=== PATIENT | male | born 1975 | race Caucasian/White ===

== ENCOUNTER 2021-10-11 13:33 | Inpatient (IN) | payer MEDICARE, SELFPAY ==
[2021-10-11 13:41] VITALS: BP 136/81; PULSE 100; RESP 16; TEMP 36.9; O2SAT 97; BMI 36.5
--- NOTE | 2021-10-11 13:52 | PC.NURSE ---
PT STATES HE HAS DRANK A PINT WHISKEY THIS DAY
--- NOTE | 2021-10-11 14:55 | ED.C_ITS ---
HPI - Psych General: Chief Complaint: Psychiatric Symptoms Stated Complaint: Mental Health Eval Time Seen by Provider: 10/11/21 14:46 Source: patient Mode of arrival: ambulatory Limitations: no limitations History of Present Illness: HPI Narrative: Patient is a 46-year-old male who presents to ED today with concerns of feeling suicidal. 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 He states his paxchyx-hd-tin is a narcissist and they do not get along well. Patient states he struggles with alcohol abuse. He states on Friday he was drinking and tried to commit suicide by baclofen overdose. He states he consumed several tablets but shortly after vomited them up. Patient states he still feels suicidal and presented to the ED stating I figured I had rather come here than somebody find me out there . Patient does have a history of depression and is supposed to be treating with medications although he has not been taking these. MD complaint: suicidal ideation Onset (ago): day(s) Duration: constant History of same: Yes Exacerbating factors: alcohol Context: recent alcohol abuse and not taking psychiatric medications Associated psychiatric symptoms: depression and suicidal ideation Associated symptoms: Reports depression and suicidal ideation; Deny auditory hallucinations, visual hallucinations or homicidal ideation Treatments prior to arrival: none If self harm: has acted on plan Review of Systems Const: Denies: fever(s) or chills Card: Denies: chest pain, palpitations, lightheadedness or syncope Resp: Denies: dyspnea GI: Denies: abdominal pain, nausea, vomiting or diarrhea Skin/Breast: Denies: rash Neuro: Denies: headache(s) Psych: Reports: depression, hopelessness, loss of interest and suicidal ideation; Denies: visual hallucinations, auditory hallucinations or homicidal ideation Physical Exam Const: COMMON NORMALS: no acute distress, patient oriented x3, no limitations and alert GENERAL APPEARANCE: cooperative ORIENTATION/CONSCIOUSNESS: Yes awake, Yes oriented to person, Yes oriented to place and Yes oriented to time OTHER: slighly intoxicated HENMT: COMMON NORMALS: normocephalic and atraumatic HEAD & SCALP: normocephalic and atraumatic Neuro: JOSEPHINE COMA SCALE: document GCS findings [place] coma scale eye opening: Spontaneous [place] coma scale verbal response: Orientated Josephine coma scale motor response: Obey commands [place] coma scale total score: 15 COMMON NORMALS: patient oriented x3, CN's II-XII intact bilaterally, moves all extremities, no focal motor deficits, no sensory deficits noted and gait normal SENSORIUM/ORIENTATION: Yes alert, Yes oriented to person, Yes oriented to place and Yes oriented to time Psych: COMMON NORMALS: mental status grossly normal, Normal thought process present, cooperative, normal affect, speech normal, activity/motor behavior normal, denies hallucinations and denies homicidal ideation APPEARANCE: Yes grossly normal ATTITUDE: Yes calm ACTIVITY/MOTOR BEHAVIOR: Yes appropriate eye contact SPEECH: Yes normal speech MOOD & AFFECT: Yes euthymic mood THOUGHT PROCESS: Normal thought process present THOUGHT CONTENT: Yes Suicidality present ATTENTION/CONCENTRATION: Yes attention grossly intact and Yes concentration grossly intact MEMORY/COGNITION: Yes memory grossly intact and Yes cognition grossly intact INSIGHT: Good insight present (Psych) JUDGEMENT: Good judgement present (Psych) Course ED course: Patient will be voluntary with affidavit. Consultations: Consultation #1: Dr. Duke-accepts to NPU pend lab clearance Vital Signs: Vital signs: Vital Signs Temperature 98.4 F 10/11/21 13:41 Pulse Rate 100 10/11/21 13:41 Respiratory Rate 16 10/11/21 13:41 Blood Pressure 136/81 10/11/21 13:41 Pulse Oximetry 97 10/11/21 13:41 Discharge Plan Discharge Patient Disposition: Admitted As Inpatient Clinical Impression: Suicidal ideation, Alcohol abuse Condition: Stable Coding Level of Care Code ED Director Of Hotel Operations for Wendy [facility] Exam Expanded Problem Focused
[2021-10-11 16:27] LABS: Basophils # 0.1 10^3/uL (0.0-0.1); Basophils % 0.5 %; Eosinophils # 0.4 10^3/uL (0.0-0.8); Eosinophils % 3.4 %; Hematocrit 46.4 % (42.0-52.0); Hemoglobin 16.1 g/dL (11.7-16.6); Lymphocytes # 2.4 10^3/uL (0.8-4.8); Lymphocytes % 21.5 %; Mean Corpuscular HGB Conc 34.7 g/dL (30.0-36.0); Mean Corpuscular Hemoglobin 32.1 pg (28.0-34.0); Mean Corpuscular Volume 92.4 fl (80-94); Mean Platelet Volume 12.9 fL (7.4-10.4); Monocytes # 0.7 10^3/uL (0.2-0.9); Monocytes % 6.3 %; Neutrophils # 7.48 10^3/uL (1.8-7.7); Nucleated Red Blood Cells % 0 %; Platelet Count 197 10^3/cmm (130-400); Red Blood Count 5.02 10^6/uL (4.1-5.3); Red Cell Distribution Width 12.7 % (12.1-15.1)
[2021-10-11 16:53] VITALS: BP 118/77; PULSE 81; RESP 17; TEMP 37.1; O2SAT 96
[2021-10-11 17:23] LABS: Alanine Aminotransferase 53 U/L (0-41); Albumin Level 3.9 g/dL (3.5-5.2); Alcohol Level 75 mg/dL (0-10); Alkaline Phosphatase 77 IU/L (40-130); Anion Gap 21.5 (5-19); Aspartate Amino Transferase 35 U/L (0-40); Blood Urea Nitrogen 10 mg/dL (6-20); Calcium 8.2 mg/dL (8.5-10.5); Carbon Dioxide 20 mmol/L (22-29); Chloride 101 mmol/L (98-107); Creatinine Clr Calc Pharmacy 140.9747; Globulin 3.4 g/dL (1.3-4.6); Glucose 140 mg/dL (65-115); Osmolality Calculated 289 mOsm/kg (285-295); Potassium 3.5 mmol/L (3.5-5.1); Sodium 139 mmol/L (136-145); Total Bilirubin 0.4 mg/dL (0.15-1.2); Total Protein 7.3 g/dL (6.6-8.7)
[2021-10-11 17:28] LABS: Acetaminophen < 5.0 ug/mL (10-30); Salicylate < 0.3 mg/dL (3-10)
[2021-10-11] MEDS: LORazepam 2 mg/mL INJ 1 mL 1 MG IM (17:29)
[2021-10-11 19:01] LABS: Amphetamines Screen Urine Negative (Negative); Barbiturates Screen Urine Negative (Negative); Benzodiazepines Screen Urine Negative (Negative); Cocaine Screen Urine Negative (Negative); Opiate Screen Urine Negative (Negative); PCP Screen Urine Negative (Negative); THC Screen Urine Negative (Negative)
[2021-10-11 20:34] VITALS: BP 132/80; PULSE 85; RESP 17; TEMP 36.9; O2SAT 96
[2021-10-12 06:00] VITALS: BP 132/80; PULSE 85; RESP 17; TEMP 36.9; O2SAT 96
[2021-10-12 06:45] VITALS: BP 142/87; PULSE 70; RESP 18; TEMP 37
[2021-10-12] MEDS: LORazepam 2 mg Tablet PO ×3 (08:22→20:24)
[2021-10-12] MEDS: thiamine 100 mg Tablet PO (08:22)
[2021-10-12] MEDS: multivitamin therapeutic Tablet 1 TAB PO (08:22)
[2021-10-12] MEDS: folic acid 1 mg Tablet PO (08:22)
--- NOTE | 2021-10-12 08:23 | PC.NURSE ---
Addendum entered by Fabby Unger LPN 10/12/21 09:32: pt still has c/o of agitation and anxiety one hour after administration of ativan, pt given vistaril for continued symptoms despite tx. will continue to monitor. Original Note: pt c/o agitation, 0800 CIWA assessment performed, pt scored 11 on scale, PO ativan administered, will continue to monitor.
[2021-10-12] MEDS: hyDROXYzine 25 mg Capsule 50 MG PO (09:30)
--- NOTE | 2021-10-12 13:39 | W.PM.NPUH&PS ---
Providers/Chief Complaint Admitting Physician: Anthony Duke MD Chief Complaint: Mental Health Eval HPI NPU History of Present Illness Audi Suarez is a 46 year old male admitted through our emergency room with the following report: HPI - Psych General: Chief Complaint: Psychiatric Symptoms Stated Complaint: Mental Health Eval Time Seen by Provider: 10/11/21 14:46 Source: patient Mode of arrival: ambulatory Limitations: no limitations History of Present Illness: HPI Narrative: Patient is a 46-year-old male who presents to ED today with concerns of feeling suicidal. 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 He states his rubbala-qq-lht is a narcissist and they do not get along well. Patient states he struggles with alcohol abuse. He states on Friday he was drinking and tried to commit suicide by baclofen overdose. He states he consumed several tablets but shortly after vomited them up. Patient states he still feels suicidal and presented to the ED stating I figured I had rather come here than somebody find me out there . Patient does have a history of depression and is supposed to be treating with medications although he has not been taking these. complaint: suicidal ideation Onset (ago): day(s) Duration: constant History of same: Yes Exacerbating factors: alcohol Context: recent alcohol abuse and not taking psychiatric medications Associated psychiatric symptoms: depression and suicidal ideation Associated symptoms: Reports depression and suicidal ideation; Deny auditory hallucinations, visual hallucinations or homicidal ideation Treatments prior to arrival: none If self harm: has acted on plan To the neuropsychiatry unit for definitive treatment of these issues. He said that he has been more depressed for the last couple of months. He has had suicidal ideation over the last 2 weeks. He has been drinking in binges. He denies alcohol use yesterday when he took the overdose of baclofen. He said that he did not want to and he still wishes that he was . He says that living with his chtnqcy-eo-ajy and sister does not help but he is always somewhat depressed. He has had 5 prior admissions for suicidal ideation. He said this is the first time he has actually taken an overdose. He said the last admission was 2 years ago and he tried Cymbalta. He said that Effexor is the one that has worked the best for him. He has tried several different ones. He took Effexor 150 mg for about 1 year and it worked well but then stopped working and he stopped taking it. They did not try to increase it. He would like to try that again. He does not feel that he needs anything for sleep. He has tried trazodone but it makes him too hazy the next day and he does not like it. Meds NPU Home Medications Medication Instructions Recorded Confirmed Last Taken Type baclofen 10 mg PO TID 10/11/21 10/11/21 Unknown History Allergies Allergy/AdvReac Type Severity Reaction Status Date / Time No Known Allergies Allergy Verified 10/11/21 13:41 Mental Status Exam MSE Comments: This is a 46-year-old obese male who appears approximately his stated age in no acute distress. He is in hospital scrubs and has a full elizabeth. He was found in bed at 1:30 PM. He did not sit up to talk with me. I psychomotor activity mildly decreased. Speech is at a regular rate and rhythm, normal volume, good articulation, not pressured. Alert, oriented X3 Attention and concentration fairly good. Memory is intact Mood is depressed. Affect is moderately dysphoric. Thought process is logical and goal-directed. Thought content: Denies auditory and visual hallucinations. No delusions or paranoia are noted. Continues to have suicidal ideation but no plan and no homicidal ideation. Fund of knowledge is average. Insight and judgment appear to be impaired. Impulse control is impaired. Vitals/I&O/Wt Last Vital Signs Temp 98.6 F 10/12/21 06:45 Pulse 70 10/12/21 06:45 Resp 18 10/12/21 06:45 BP 142/87 10/12/21 06:45 Pulse Ox 96 10/12/21 06:00 Weight last 48 hrs Weight 108.862 kg Data NPU : 10/11/21 16:09 10/11/21 16:09 A&P Assessment and plan (1) Depression: Status: Acute Qualifiers: Depression Type: major depressive disorder Major depression recurrence: recurrent Active/Remission status: currently active Major depression episode severity: severe Psychotic features: without psychotic features Qualified Code(s): F33.2 - Major depressive disorder, recurrent severe without psychotic features (2) Suicidal ideation: Status: Acute (3) Alcohol abuse: Status: Acute Additional A&P Information This is a 46-year-old male who reports chronic depression with episodic suicidal ideations and 5 prior hospitalizations who attempted suicide with overdose of baclofen and alcohol Plan: 1. We will start Effexor 75 mg daily and increase to 150 mg as tolerated 2. Continue every 15 minute checks for safety. 3. Encourage individual, group and milieu therapies. 4. Encourage sober living treatment after discharge at the highest level of care to which he is willing to commit. 5. We will monitor for safety for himself in the community prior to discharge. Involuntary Hold Information 96 Hour Hold: 96 Hour Involuntary Admission: No Attestations NPU Medical Necessity Statement*: Inpatient hospitalization is medically necessary and the clinically appropriate intervention at this time. We will initiate medications and make changes as indicated. He will be in the hospital for over 2 midnights. Likely length of stay 4-6 days Coding Level of Care Code Acute Hotel Manager for Wendy [facility] Diagnoses Depression F33.2 Depression Type: major depressive disorder Major depression recurrence: recurrent Active/Remission status: currently active Major depression episode severity: severe Psychotic features: without psychotic features Suicidal ideation R45.851 Alcohol abuse F10.10
[2021-10-12 14:00] VITALS: BP 140/76; PULSE 72; RESP 16; TEMP 37; O2SAT 97
[2021-10-12] MEDS: OLANZapine 5 mg ODT PO (17:27)
[2021-10-12 20:31] VITALS: BP 123/83; PULSE 71; RESP 16; O2SAT 94
--- NOTE | 2021-10-13 02:59 | PC.NURSE ---
PRN administration Patient scored 12 on CIWA, PRN Ativan given per protocol with noted effectiveness.
[2021-10-13 06:00] VITALS: BP 119/71; PULSE 64; RESP 20; TEMP 36.6; O2SAT 94
--- NOTE | 2021-10-13 08:20 | W.PM.NPUPNS ---
Subjective NPU Subjective: Interval history: He continues to have depression and suicidal ideation. He will have his first dose of Effexor 75 mg today. He took some Zyprexa Zydis yesterday afternoon around dinnertime but did not eat anything else to help him sleep. He says that he slept well. He was up in the day room at 8 AM. He was encouraged to continue to be active and in bed. Mental Status Exam MSE Comments: This is a 46-year-old obese male who appears approximately his stated age in no acute distress. He is in hospital scrubs and has a full elizabeth. He was found in the day room at 8 AM. psychomotor activity mildly decreased. Speech is at a regular rate and rhythm, normal volume, good articulation, not pressured. Alert, oriented X3 Attention and concentration fairly good. Memory is intact Mood is depressed. Affect is moderately dysphoric. Thought process is logical and goal-directed. Thought content: Denies auditory and visual hallucinations. No delusions or paranoia are noted. Continues to have suicidal ideation but no plan and no homicidal ideation. Fund of knowledge is average. Insight and judgment appear to be impaired. Impulse control is impaired. Cognition: Patient Appearance: Disheveled/Poor Hygiene Level of Consciousness: Awake, Alert, Appropriate and Follows Commands Patient Cognition Impaired: No Ability to Follow Directions: Good Patient Orientation (long list): Person, Place, Time, Name, Age and Birthday Comprehension Ability: No Impairment Hallucination Type: None Delusion Description: Not Present Thought Process: Appropriate Affect: Affect Description: Appropriate Behavior: Patient Behavior: Appropriate Speech Pattern: Appropriate Vitals/I&O/Wt Last Vital Signs Temp 98 F 10/13/21 06:00 Pulse 64 10/13/21 06:00 Resp 20 H 10/13/21 06:00 BP 119/71 10/13/21 06:00 Pulse Ox 94 10/13/21 06:00 Weight last 48 hrs Weight 108.862 kg Data NPU : 10/11/21 16:09 10/11/21 16:09 A&P Assessment and plan (1) Depression: Status: Acute Qualifiers: Depression Type: major depressive disorder Major depression recurrence: recurrent Active/Remission status: currently active Major depression episode severity: severe Psychotic features: without psychotic features Qualified Code(s): F33.2 - Major depressive disorder, recurrent severe without psychotic features (2) Suicidal ideation: Status: Acute (3) Alcohol abuse: Status: Acute Additional A&P Information This is a 46-year-old male who reports chronic depression with episodic suicidal ideations and 5 prior hospitalizations who attempted suicide with overdose of baclofen and alcohol Plan: 1. We will start Effexor 75 mg daily and increase to 150 mg as tolerated 2. Continue every 15 minute checks for safety. 3. Encourage individual, group and milieu therapies. 4. Encourage sober living treatment after discharge at the highest level of care to which he is willing to commit. 5. We will monitor for safety for himself in the community prior to discharge. Involuntary Hold Information 96 Hour Hold: 96 Hour Involuntary Admission: No Attestations NPU Medical Necessity Statement*: Inpatient hospitalization is medically necessary and the clinically appropriate intervention at this time. We will initiate medications and make changes as indicated. 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
[2021-10-13] MEDS: venlafaxine ER (24HR) 75 mg Capsule PO (08:28)
[2021-10-13] MEDS: thiamine 100 mg Tablet PO (08:28)
[2021-10-13] MEDS: multivitamin therapeutic Tablet 1 TAB PO (08:28)
[2021-10-13] MEDS: folic acid 1 mg Tablet PO (08:28)
[2021-10-13] MEDS: LORazepam 2 mg Tablet PO ×2 (09:01→20:16)
[2021-10-13] MEDS: nicotine 21 mg Patch 1 PATCH TRANSDERMA (09:30)
--- NOTE | 2021-10-13 12:14 | PC.PT ---
discussed order with nursing and they stated entered in error. discussed chronic amputee. if pt having difficulty, nursing to re-order therapy. D/C PT currently
[2021-10-13 14:00] VITALS: BP 131/84; PULSE 81; RESP 17; O2SAT 94
[2021-10-13 20:15] VITALS: BP 139/87; PULSE 80; RESP 17; O2SAT 93
[2021-10-13] MEDS: ondansetron 4 MG Tablet PO (20:16)
--- NOTE | 2021-10-14 04:41 | PC.NURSE ---
Patient at the nurses station earlier with extreme anxiety and nausea. Patient received Lorazepam (CIWA 13) and zofran. Both were effective.
[2021-10-14 05:51] VITALS: BP 139/87; PULSE 80; RESP 17; TEMP 36.6; O2SAT 93; BMI 36.5
[2021-10-14 06:55] VITALS: BP 138/78; PULSE 84; RESP 18; TEMP 36.5; O2SAT 95
[2021-10-14] MEDS: venlafaxine ER (24HR) 75 mg Capsule PO (08:25)
[2021-10-14] MEDS: folic acid 1 mg Tablet PO (08:25)
[2021-10-14] MEDS: thiamine 100 mg Tablet PO (08:25)
[2021-10-14] MEDS: multivitamin therapeutic Tablet 1 TAB PO (08:25)
[2021-10-14] MEDS: nicotine 2 mg Gum BUCCAL ×5 (08:26→19:11)
[2021-10-14] MEDS: hyDROXYzine 25 mg Capsule 50 MG PO ×2 (08:47→16:12)
--- NOTE | 2021-10-14 12:45 | P.NPUPN_ITS ---
Subjective NPU Subjective: Interval history: He says that his depression is no better with the Effexor 75 mg. Today is only the second day. He would like to go ahead and increase it to 150 mg. He said that he thinks that anxiety is a big problem for him. The Ativan that he was taking for the alcohol withdrawal was really helping. He thinks that the anxiety is one of the reasons that he drinks. He would like to be able to take something like Ativan to help his anxiety. He was educated about the proper treatment of anxiety and told it would probably need to increase the Effexor up to 300 mg. He thinks that he has been up to 225 mg before but not that high. He would like to increase up to 300 mg as soon as possible. He is willing to take the risk of having some side effects. He generally does not have side effects from medications and thinks that he can handle the higher dose sooner than most people could. He said that he has been on Abilify and Risperdal and maybe other antipsychotics and has not liked them. Mental Status Exam MSE Comments: This is a 46-year-old obese male who appears approximately his stated age in no acute distress. He is in hospital scrubs and has a full elizabeth. He was found in bed but awake at 12:30 PM. psychomotor activity mildly decreased. Speech is at a regular rate and rhythm, normal volume, good articulation, not pressured. Alert, oriented X3 Attention and concentration fairly good. Memory is intact Mood is depressed. Affect is moderately dysphoric. Thought process is logical and goal-directed. Thought content: Denies auditory and visual hallucinations. No delusions or paranoia are noted. Continues to have suicidal ideation but no plan and no homicidal ideation. Fund of knowledge is average. Insight and judgment appear to be impaired. Impulse control is impaired. Cognition: Patient Appearance: Disheveled/Poor Hygiene Level of Consciousness: Awake, Alert, Appropriate and Follows Commands Patient Cognition Impaired: No Ability to Follow Directions: Good Patient Orientation (long list): Person, Place, Time, Name, Age and Birthday Comprehension Ability: No Impairment Hallucination Type: None Delusion Description: Not Present Thought Process: Circumstantial Affect: Affect Description: Appropriate, Anxious, Depressed and Flat Behavior: Patient Behavior: Appropriate, Cooperative and Withdrawn Speech Pattern: Appropriate and Clear Vitals/I&O/Wt Last Vital Signs Temp 97.7 F 10/14/21 06:55 Pulse 84 10/14/21 06:55 Resp 18 10/14/21 06:55 BP 138/78 10/14/21 06:55 Pulse Ox 95 10/14/21 06:55 Weight last 48 hrs Weight 108.862 kg Data NPU : 10/11/21 16:09 10/11/21 16:09 A&P Assessment and plan (1) Depression: Status: Acute Qualifiers: Depression Type: major depressive disorder Major depression recurrence: recurrent Active/Remission status: currently active Major depression episode severity: severe Psychotic features: without psychotic features Qualified Code(s): F33.2 - Major depressive disorder, recurrent severe without psychotic features (2) Suicidal ideation: Status: Acute (3) Alcohol abuse: Status: Acute Additional A&P Information This is a 46-year-old male who reports chronic depression with episodic suicidal ideations and 5 prior hospitalizations who attempted suicide with overdose of baclofen and alcohol Plan: 1. Effexor increase to 150 mg.Consider increasing to 300 mg soon. 2. Continue every 15 minute checks for safety. 3. Encourage individual, group and milieu therapies. 4. Encourage sober living treatment after discharge at the highest level of ca re to which he is willing to commit. 5. We will monitor for safety for himself in the community prior to discharge. Involuntary Hold Information 96 Hour Hold: 96 Hour Involuntary Admission: No Attestations NPU Medical Necessity Statement*: Inpatient hospitalization is medically necessary and the clinically appropriate intervention at this time. We will initiate medications and make changes as indicated. 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
[2021-10-14 14:00] VITALS: BP 146/84; PULSE 109; RESP 18; TEMP 37.1; O2SAT 94
[2021-10-14 20:39] VITALS: BP 112/74; PULSE 88; RESP 17; TEMP 36.6; O2SAT 96
[2021-10-15 06:00] VITALS: BP 117/78; PULSE 90; RESP 18; TEMP 36.3; O2SAT 96
[2021-10-15] MEDS: nicotine 2 mg Gum BUCCAL ×5 (07:47→19:29)
[2021-10-15] MEDS: folic acid 1 mg Tablet PO (08:43)
[2021-10-15] MEDS: thiamine 100 mg Tablet PO (08:43)
[2021-10-15] MEDS: multivitamin therapeutic Tablet 1 TAB PO (08:43)
[2021-10-15] MEDS: venlafaxine ER (24HR) 75 mg Capsule 150 MG PO (08:44)
--- NOTE | 2021-10-15 13:04 | W.PM.NPUPNS ---
Subjective NPU Subjective: Interval history: He says that he feels a little warm from me but Effexor and has some sweating. He said that worked best for him before but it goes away after a couple of days. Have any difficulty with sweating at bedtime last night. His mood and anxiety are much improved today. He is not sure why that would be. He was hoping that it was from the medications. He is not sure if we need to increase the Effexor. Mental Status Exam MSE Comments: This is a 46-year-old obese male who appears approximately his stated age in no acute distress. He is in hospital scrubs and has a full elizabeth. He has been in the day room for most of the day. psychomotor activity is normal. Speech is at a regular rate and rhythm, normal volume, good articulation, not pressured. Alert, oriented X3 Attention and concentration fairly good. Memory is intact Mood is good. Affect is euthymic. Thought process is logical and goal-directed. Thought content: Denies auditory and visual hallucinations. No delusions or paranoia are noted. Continues to have suicidal ideation but no plan and no homicidal ideation. Fund of knowledge is average. Insight and judgment appear to be impaired. Impulse control is impaired. Cognition: Patient Appearance: Appropriate Level of Consciousness: Awake, Alert, Appropriate and Follows Commands Patient Cognition Impaired: No Ability to Follow Directions: Good Patient Orientation (long list): Person, Place, Time, Name, Age, Birthday, Day of Week, Month, Time of Day and Year Comprehension Ability: No Impairment Hallucination Type: None Delusion Description: Not Present Thought Process: Appropriate Affect: Affect Description: Appropriate Behavior: Patient Behavior: Appropriate Speech Pattern: Appropriate Vitals/I&O/Wt Last Vital Signs Temp 97.4 F L 10/15/21 06:00 Pulse 90 10/15/21 06:00 Resp 18 10/15/21 06:00 BP 117/78 10/15/21 06:00 Pulse Ox 96 10/15/21 06:00 Weight last 48 hrs Weight 108.862 kg Data NPU : 10/11/21 16:09 10/11/21 16:09 A&P Assessment and plan (1) Depression: Status: Acute Qualifiers: Active/Remission status: currently active Depression Type: major depressive disorder Major depression episode severity: severe Major depression recurrence: recurrent Psychotic features: without psychotic features Qualified Code(s): F33.2 - Major depressive disorder, recurrent severe without psychotic features (2) Suicidal ideation: Status: Acute (3) Alcohol abuse: Status: Acute Additional A&P Information This is a 46-year-old male who reports chronic depression with episodic suicidal ideations and 5 prior hospitalizations who attempted suicide with overdose of baclofen and alcohol Plan: 1. Effexor increase to 150 mg. Consider increasing soon. 2. Continue every 15 minute checks for safety. 3. Encourage individual, group and milieu therapies. 4. Encourage sober living treatment after discharge at the highest level of care to which he is willing to commit. 5. We will monitor for safety for himself in the community prior to discharge. Involuntary Hold Information 96 Hour Hold: 96 Hour Involuntary Admission: No Attestations NPU Medical Necessity Statement*: Inpatient hospitalization is medically necessary and the clinically appropriate intervention at this time. We will initiate medications and make changes as indicated. Coding Level of Care Code Acute [employer] Customer Service for Wendy Bang Diagnoses Depression F33.2 Active/Remission status: currently active Depression Type: major depressive disorder Major depression episode severity: severe Major depression recurrence: recurrent Psychotic features: without psychotic features Suicidal ideation R45.851 Alcohol abuse F10.10
[2021-10-15 13:54] VITALS: BP 122/82; PULSE 71; RESP 18; TEMP 36.7; O2SAT 95
[2021-10-15] MEDS: hyDROXYzine 25 mg Capsule 50 MG PO (15:47)
[2021-10-15 20:29] VITALS: BP 126/79; PULSE 71; RESP 18; O2SAT 95
[2021-10-16 06:00] VITALS: BP 126/84; PULSE 72; RESP 20; TEMP 36.7; O2SAT 93
--- NOTE | 2021-10-16 07:30 | P.NPUPN_ITS ---
Subjective NPU Subjective: Interval history: He had another good day yesterday. His mood was good. He had some anxiety in the evening and took some Vistaril. Today will be his second day on Effexor 150 mg. He said that he did well on it before at 150 mg. He agrees that if he has another good day then he can probably leave tomorrow Mental Status Exam MSE Comments: This is a 46-year-old obese male who appears approximately his stated age in no acute distress. He is in hospital scrubs and has a full elizabeth. He has been in the day room for most of the day. psychomotor activity is normal. Speech is at a regular rate and rhythm, normal volume, good articulation, not pressured. Alert, oriented X3 Attention and concentration fairly good. Memory is intact Mood is good. Affect is euthymic. Thought process is logical and goal-directed. Thought content: Denies auditory and visual hallucinations. No delusions or paranoia are noted. Continues to have suicidal ideation but no plan and no homicidal ideation. Fund of knowledge is average. Insight and judgment appear to be impaired. Impulse control is impaired. Cognition: Patient Appearance: Appropriate Level of Consciousness: Awake, Alert, Appropriate and Follows Commands Patient Cognition Impaired: No Ability to Follow Directions: Good Patient Orientation (long list): Person, Place, Time, Name, Age, Birthday, Day of Week, Month, Time of Day and Year Comprehension Ability: No Impairment Hallucination Type: None Delusion Description: Not Present Thought Process: Appropriate Affect: Affect Description: Appropriate and Calm Behavior: Patient Behavior: Appropriate and Cooperative Speech Pattern: Appropriate and Clear Vitals/I&O/Wt Last Vital Signs Temp 98.0 F 10/16/21 06:00 Pulse 72 10/16/21 06:00 Resp 20 H 10/16/21 06:00 BP 126/84 10/16/21 06:00 Pulse Ox 93 10/16/21 06:00 Data NPU : 10/11/21 16:09 10/11/21 16:09 A&P Assessment and plan (1) Depression: Status: Acute Qualifiers: Depression Type: major depressive disorder Major depression recurrence: recurrent Active/Remission status: currently active Major depression episode severity: severe Psychotic features: without psychotic features Qualified Co de(s): F33.2 - Major depressive disorder, recurrent severe without psychotic features (2) Suicidal ideation: Status: Acute (3) Alcohol abuse: Status: Acute Plan This is a 46-year-old male who reports chronic depression with episodic suicidal ideations and 5 prior hospitalizations who attempted suicide with overdose of baclofen and alcohol Plan: 1. ? Effexor increase to 150 mg.? Consider increasing soon. 2.? Continue every 15 minute checks for safety. 3.? Encourage individual, group and milieu therapies. 4.? Encourage sober living treatment after discharge at the highest level of care to which he is willing to commit. 5.? We will monitor for safety for himself in the community prior to discharge. Involuntary Hold Information 96 Hour Hold: 96 Hour Involuntary Admission: No Attestations NPU Medical Necessity Statement*: Inpatient hospitalization is medically necessary and the clinically appropriate intervention at this time. We will initiate medications and make changes as indicated. Coding Level of Care Code Acute [employer] for Wendy Bang Diagnoses Depression F33.2 Depression Type: major depressive disorder Major depression recurrence: recurrent Active/Remission status: currently active Major depression episode severity: severe Psychotic features: without psychotic features Suicidal ideation R45.851 Alcohol abuse F10.10
[2021-10-16] MEDS: venlafaxine ER (24HR) 75 mg Capsule 150 MG PO (07:44)
[2021-10-16] MEDS: folic acid 1 mg Tablet PO (07:45)
[2021-10-16] MEDS: nicotine 2 mg Gum BUCCAL ×4 (07:45→16:49)
[2021-10-16] MEDS: thiamine 100 mg Tablet PO (07:45)
[2021-10-16] MEDS: multivitamin therapeutic Tablet 1 TAB PO (07:45)
[2021-10-16] MEDS: hyDROXYzine 25 mg Capsule 50 MG PO (10:39)
[2021-10-16 14:00] VITALS: BP 126/84; PULSE 72; RESP 20; TEMP 36.7; O2SAT 93
[2021-10-16] MEDS: OLANZapine 5 mg ODT PO (16:46)
[2021-10-16 21:00] VITALS: BP 175/65; PULSE 79; RESP 17; TEMP 36.6; O2SAT 94
[2021-10-17 06:00] VITALS: BP 134/88; PULSE 75; RESP 18; TEMP 36.4; O2SAT 96
[2021-10-17] MEDS: nicotine 2 mg Gum BUCCAL ×2 (06:44→08:29)
--- NOTE | 2021-10-17 07:32 | W.PM.NPUDCS ---
Diagnoses at Discharge Discharge Diagnosis (1) Depression: Status: Acute Qualifiers: Depression Type: major depressive disorder Major depression recurrence: recurrent Active/Remission status: currently active Major depression episode severity: severe Psychotic features: without psychotic features Qualified Code(s): F33.2 - Major depressive disorder, recurrent severe without psychotic features (2) Suicidal ideation: Status: Acute (3) Alcohol abuse: Status: Acute Reason for Visit Reason for Visit: Mental Health Eval Brief History: History of Present Illness Audi Suarez is a 46 year old male admitted through our emergency room with the following report: HPI - Psych General:?? Chief Complaint: Psychiatric Symptoms Stated Complaint: Mental Health Eval Time Seen by Provider: 10/11/21 14:46 Source: patient Mode of arrival: ambulatory Limitations: no limitations History of Present Illness:?? HPI Narrative: Patient is a 46-year-old male who presents to ED today with concerns of feeling suicidal.? 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 He states his [id number] is a narcissist and they do not get along well.? Patient states he struggles with alcohol abuse.? He states on Friday he was drinking and tried to commit suicide by baclofen overdose.? He states he consumed several tablets but shortly after vomited them up.? Patient states he still feels suicidal and presented to the ED stating I figured I had rather come here than somebody find me out there .? Patient does have a history of depression and is supposed to be treating with medications although he has not been taking these. MD complaint: suicidal ideation Onset (ago): day(s) Duration: constant History of same: Yes Exacerbating factors: alcohol Context: recent alcohol abuse and not taking psychiatric medications Associated psychiatric symptoms: depression and suicidal ideation Associated symptoms: Reports depression and suicidal ideation; Deny auditory hallucinations, visual hallucinations or homicidal ideation Treatments prior to arrival: none If self harm: has acted on plan To the neuropsychiatry unit for definitive treatment of these issues.? He said that he has been more depressed for the last couple of months.? He has had suicidal ideation over the last 2 weeks.? He has been drinking in binges.? He denies alcohol use yesterday when he took the overdose of baclofen.? He said that he did not want to and he still wishes that he was .? He says that living with his [id number] and sister does not help but he is always somewhat depressed.? He has had 5 prior admissions for suicidal ideation.? He said this is the first time he has actually taken an overdose.? He said the last admission was 2 years ago and he tried Cymbalta.? He said that Effexor is the one that has worked the best for him.? He has tried several different ones.? He took Effexor 150 mg for about 1 year and it worked well but then stopped working and he stopped taking it.? They did not try to increase it.? He would like to try that again.? He does not feel that he needs anything for sleep.? He has tried trazodone but it makes him too hazy the next day and he does not like it. Hospital Course Hospital Course He slowly acclimated to the individual, group and milieu therapies provided. He was started on Effexor and gradually increased up to 150 mg which he had said worked well previously. He tolerated these doses and showed steady improvement during his stay. He was able to contract for safety outside hospital prior to discharge. During the hospitalization, patient had routine laboratory studies which were within normal limits except for few outliers. Additionally there was a general medical evaluation which was also within normal limits and revealed no new acute processes. Discharge Summary: At the time of discharge, lethality was denied. Mood and anxiety were well managed. Patient endorsed a plan to follow-up with the aftercare recommendations of the treatment team. Patient was evaluated and deemed to be absent credible lethality, and had achieved the maximum benefit from an inpatient hospitalization, so was discharged. Involuntary Hold Information 96 Hour Hold: 96 Hour Involuntary Admission: No Mental Status Exam MSE Comments: This is a 46-year-old obese male who appears approximately his stated age in no acute distress. He is in hospital scrubs and has a full elizabeth. He has been in the day room for most of the day. 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 psychomotor activity is normal. Speech is at a regular rate and rhythm, normal volume, good articulation, not pressured. Alert, oriented X3 Attention and concentration fairly good. Memory is intact Mood is good. Affect is euthymic. Thought process is logical and goal-directed. Thought content: Denies auditory and visual hallucinations. No delusions or paranoia are noted. Continues to have suicidal ideation but no plan and no homicidal ideation. Fund of knowledge is average. Insight and judgment appear to be fair. Impulse control is fair. Cognition: Patient Appearance: Appropriate Level of Consciousness: Awake, Alert, Appropriate and Follows Commands Patient Cognition Impaired: No Ability to Follow Directions: Good Patient Orientation (long list): Person, Place, Time, Name, Age, Birthday, Day of Week, Month, Time of Day and Year Comprehension Ability: No Impairment Hallucination Type: None Delusion Description: Not Present Thought Process: Appropriate Affect: Affect Description: Appropriate Behavior: Patient Behavior: Appropriate Speech Pattern: Appropriate Discharge Data Studies Completed and Pending: Laboratory Results WBC 11.0 10^3/uL (4.0 -10.0) H 10/11/21 16:09 RBC 5.02 10^6/uL (4.1 -5.3) 10/11/21 16:09 Hgb 16.1 g/dL (11.7-1 6.6) 10/11/21 16:09 Hct 46.4 % (42.0-52.0 ) 10/11/21 16:09 MCV 92.4 fl (80-94) 10/11/21 16:09 MCH 32.1 pg (28.0-34. 0) 10/11/21 16:09 MCHC 34.7 g/dL (30.0-3 6.0) 10/11/21 16:09 RDW 12.7 % (12.1-15.1 ) 10/11/21 16:09 Plt Count 197 10^3/cmm (130 -400) 10/11/21 16:09 MPV 12.9 fL (7.4-10.4 ) H 10/11/21 16:09 Neut % (Auto) 68.0 % 10/11/21 16:09 Lymph % (Auto) 21.5 % 10/11/21 16:09 [place] % (Auto) 6.3 % 10/11/21 16:09 Eos % (Auto) 3.4 % 10/11/21 16:09 Baso % (Auto) 0.5 % 10/11/21 16:09 Neut # (Auto) 7.48 10^3/uL (1.8 -7.7) 10/11/21 16:09 Lymph # (Auto) 2.4 10^3/uL (0.8- 4.8) 10/11/21 16:09 [place] # (Auto) 0.7 10^3/uL (0.2- 0.9) 10/11/21 16:09 Eos # (Auto) 0.4 10^3/uL (0.0- 0.8) 10/11/21 16:09 Baso # (Auto) 0.1 10^3/uL (0.0- 0.1) 10/11/21 16:09 Nucleated RBC % (a uto) 0 % 10/11/21 16:09 Nucleated RBCs # 0.0 /100WBC 10/11/21 16:09 Sodium 139 mmol/L (136-1 45) 10/11/21 16:09 Potassium 3.5 mmol/L (3.5-5 .1) 10/11/21 16:09 Chloride 101 mmol/L (98-10 7) 10/11/21 16:09 Carbon Dioxide 20 mmol/L (22-29) L 10/11/21 16:09 Anion Gap 21.5 (5-19) H 10/11/21 16:09 BUN 10 mg/dL (6-20) 10/11/21 16:09 Creatinine 0.8 mg/dL (0.7-1. 2) 10/11/21 16:09 GFR Calculation 105.0 mL/min (90- 130) 10/11/21 16:09 Glucose 140 mg/dL (65-115 ) H 10/11/21 16:09 Calculated Osmolal ity 289 mOsm/kg (285- 295) 10/11/21 16:09 Calcium 8.2 mg/dL (8.5-10 .5) L 10/11/21 16:09 Total Bilirubin 0.4 mg/dL (0.15-1 .2) 10/11/21 16:09 AST 35 U/L (0-40) 10/11/21 16:09 ALT 53 U/L (0-41) H 10/11/21 16:09 Alkaline Phosphata se 77 IU/L (40-130) 10/11/21 16:09 Total Protein 7.3 g/dL (6.6-8.7 ) 10/11/21 16:09 Albumin 3.9 g/dL (3.5-5.2 ) 10/11/21 16:09 Globulin 3.4 g/dL (1.3-4.6 ) 10/11/21 16:09 Salicylates < 0.3 mg/dL (3-10 ) L 10/11/21 16:09 Urine Opiates Scre en Negative ng/mL (N egative) 10/11/21 17:00 Acetaminophen < 5.0 ug/mL (10-3 0) L 10/11/21 16:09 Ur Barbiturates Sc reen Negative ng/mL (N egative) 10/11/21 17:00 Ur Phencyclidine S crn Negative ng/mL (N egative) 10/11/21 17:00 Ur Amphetamines Sc reen Negative ng/mL (N egative) 10/11/21 17:00 U Benzodiazepines Scrn Negative ng/mL (N egative) 10/11/21 17:00 Urine Cocaine Scre en Negative ng/mL (N egative) 10/11/21 17:00 U Marijuana (THC) Screen Negative ng/mL (N egative) 10/11/21 17:00 Ethyl Alcohol 75 mg/dL (0-10) H 10/11/21 16:09 Vitals: Last Vital Signs Temp 97.6 F 10/17/21 06:00 Pulse 75 10/17/21 06:00 Resp 18 10/17/21 06:00 BP 134/88 10/17/21 06:00 Pulse Ox 96 10/17/21 06:00 Discharge Plan Discharge Patient Disposition: Home Condition: Stable Prescriptions: New venlafaxine 75 mg Capsule,Extended Release 24hr 150 mg PO DAILY 30 Days Qty: 60 1RF hydroxyzine pamoate 25 mg Capsule 50 mg PO Q6H PRN (Reason: Anxiety) 30 Days Qty: 120 0RF Continued baclofen tablet 10 mg PO TID 0RF Discharge Orders: Discharge Order (Routine); Ordered 10/17/21 Ordered By: Anthony Duke Referrals: [facility] [place] [Other] (Ask for Maren Gipson) [facility] [Outside] (Walk in Friday or 7:30am to 3pm for initial assessment) [facility] [Outside] Discharge Diet: Regular Discharge Activity: Resume usual activity Patient Instructions: Opioid Safety Discharge Attestations NPU Time Spent in Discharge Care*: less than 30 min Coding Level of Care Code Acute Chg FW DC note Diagnoses Depression F33.2 Depression Type: major depressive disorder Major depression recurrence: recurrent Active/Remission status: currently active Major depression episode severity: severe Psychotic features: without psychotic features Suicidal ideation R45.851 Alcohol abuse F10.10
[2021-10-17 07:53] VITALS: BP 134/88; PULSE 75; RESP 18; TEMP 36.4; O2SAT 96
--- NOTE | 2021-10-17 08:23 | DCPLANNER ---
IMM completed with pt on 10/17/21 @ 4703. Pt was given a copy of rights and stated he understood rights.
[2021-10-17] MEDS: venlafaxine ER (24HR) 75 mg Capsule 150 MG PO (08:29)
[2021-10-17] MEDS: folic acid 1 mg Tablet PO (08:29)
[2021-10-17] MEDS: thiamine 100 mg Tablet PO (08:29)
[2021-10-17] MEDS: multivitamin therapeutic Tablet 1 TAB PO (08:29)
== END 2021-10-17 08:36 | disposition home or self-care (01) | DRG 885 ==
LOC: ER 16:22 → NP 17:46
PROVIDERS: Admitting Provider Psychiatry & Neurology Psychiatry; Emergency Provider Physician Assistant; Visit Provider Psychiatry & Neurology Psychiatry
DX: F33.2 Major depressive disorder, recurrent severe without psychotic features (principal); R45.851 Suicidal ideations; F10.10 Alcohol abuse, uncomplicated; Y90.3 Blood alcohol level of 60-79 mg/100 ml; Z63.1 Problems in relationship with in-laws; Z91.51 Personal history of suicidal behavior
CPT/HCPCS: 80053; 80306; 80307; 85025; 96372; 97150; 97165; 99285; J2060; Q0162

== ENCOUNTER 2021-10-28 19:56 | Emergency (ER) | payer MEDICARE, SELFPAY ==
--- NOTE | 2021-10-28 20:06 | PC.NURSE ---
patient called to triage with no answer. patient outside smoking cigarette. patinet in no obivous distress.
[2021-10-28 20:19] VITALS: BP 137/93; PULSE 101; RESP 18; TEMP 36.2; O2SAT 95; BMI 36.5
--- NOTE | 2021-10-28 20:24 | W.ED.FALL ---
HPI - Fall General: Chief Complaint: Fall Stated Complaint: KNEE PAIN Time Seen by Provider: 10/28/21 20:24 History of Present Illness: 46-year-old male patient has a below the knee amputation on the right side. Patient reports walking into [employer] and slipped on a icy spot causing him to injure his left knee. Patient came in by ambulance and has pain and discomfort to the left knee. No obvious deformity is noted to the knee. Patient does smell of EtOH. Patient reports taking no medications prior to arrival. Onset (ago): minute(s) Fall from: standing Fall witnessed: yes, by bystander Place fall occurred: street Loss of consciousness: None Prolonged down time: no Symptoms prior to fall: none Context: tripped/slipped Location of injury - extremities: Left: knee Severity scale (1-10): 7 Quality: sharp and aching Review of Systems General: Reports: 10 or more systems reviewed and unremarkable except in HPI and below Musc: Reports: joint pain (Left knee) [facility] ED PFSH: Social History Smoking and tobacco status: current every day smoker Physical Exam Const: COMMON NORMALS: alert HENMT: COMMON NORMALS: normocephalic HEAD & SCALP: normocephalic Neck/C-Spine: COMMON NORMALS: full ROM Resp: COMMON NORMALS: normal respiratory effort and clear to auscultation bilaterally AUSCULTATION: clear to auscultation bilaterally Cardio: COMMON NORMALS: regular rate and regular rhythm RATE: regular rate RHYTHM: regular rhythm Extremity: LEFT LOWER EXTREMITY: Yes knee joint (Pain and tenderness to the medial joint line) Left knee: Yes inspection, Yes palpation, Yes ROM (Decreased range of motion due to pain) and Yes neurovascular exam Neuro: SENSORIUM/ORIENTATION: Yes alert Psych: COMMON NORMALS: cooperative Skin: COMMON NORMALS: no rashes or lesions noted GENERAL SKIN EXAM: no rashes or lesions noted Course ED course: 2134, after x-ray of the knee patient reported that his back was bothering him more than his knee and requested x-ray of the back. Back was examined and noted some tenderness to the left lower lumbar paraspinous muscles. Vital Signs: Vital signs: Vital Signs Temperature 97.1 F L 10/28/21 20:19 Pulse Rate 101 H 10/28/21 20:19 Respiratory Rate 18 10/28/21 20:19 Blood Pressure 137/93 10/28/21 20:19 Pulse Oximetry 95 10/28/21 20:19 MDM - Fall Medical Decision Making 46-year-old male patient comes in today with injury to the left knee. On exam patient has joint line tenderness bilaterally. Patient does not want to move knee due to pain. Patient is alert and oriented. No obvious deformity is noted to the knee and no dislocation is noted. Palpation of the lumbar spine noted some paraspinous muscle tenderness of the left lower lumbar. Differential diagnosis includes but not limited to sprain, fracture, contusion. X-rays of the lumbar spine and left knee indicated no acute fractures. Patient was likely strained his back and sprained his knee. Recommended activity as tolerated. Follow-up with primary care for further instructions. Patient reported understanding. Discharge Plan Discharge Patient Disposition: Home Clinical Impression: Fall Qualifiers: Encounter type: initial encounter Qualified Code(s): W19.XXXA - Unspecified fall, initial encounter Lumbar strain Qualifiers: Encounter type: initial encounter Qualified Code(s): S39.012A - Strain of muscle, fascia and tendon of lower back, initial encounter Knee sprain Qualifiers: Encounter type: initial encounter Involved ligament of knee: unspecified ligament Laterality: left Qualified Code(s): S83.92XA - Sprain of unspecified site of left knee, initial encounter Condition: Stable Prescriptions: New diclofenac sodium 75 mg tablet,delayed release (DR/EC) 75 mg PO BID PRN (Reason: pain) Qty: 10 0RF No Action baclofen tablet 10 mg PO TID 0RF venlafaxine 75 mg Capsule,Extended Release 24hr 150 mg PO DAILY 30 Days Qty: 60 1RF hydroxyzine pamoate 25 mg Capsule 50 mg PO Q6H PRN (Reason: Anxiety) 30 Days Qty: 120 0RF Discharge Orders: Discharge ED (Routine); Ordered 10/28/21 Ordered By: Darius Rai Discharge Diet: Usual diet Discharge Activity: Increase activity as tolerated Patient Instructions: Back Pain (ED) Activity Restrictions/Additional Instructions: Activity as tolerated. Use walking assistive devices such as cane or walker to help with ambulation if needed. Use acetaminophen for further pain relief. Use diclofenac for worse pain. Follow-up with primary care for further instruction. Return to the ER for new concerns. Coding Level of Care Code ED [employer] Pel[employer] for Chg Fwd History Problem Focused Exam Expanded Problem Focused Medical Decision Making Low Complexity Time Spent (min) 30
--- NOTE | 2021-10-28 20:55 | XRR_ITS ---
PROCEDURE INFORMATION: Exam: XR Left Knee Exam date and time: 10/28/2021 8:55 PM Age: 46 years old Clinical indication: Injury or trauma; Fall; Blunt trauma; Knee; Left TECHNIQUE: Imaging protocol: XR Left knee. Views: 3 views. COMPARISON: No relevant prior studies available. FINDINGS: Bones/joints: Normal. Soft tissues: Normal. XR/XR knee LT 3V* [id number] IMPRESSION: No acute findings.
[2021-10-28] MEDS: HYDROcodone-acetaminophen 5-325 mg Tablet 1 TAB PO (21:10)
--- NOTE | 2021-10-28 21:26 | XRR_ITS ---
PROCEDURE INFORMATION: Exam: XR Lumbosacral Spine Exam date and time: 10/28/2021 9:26 PM Age: 46 years old Clinical indication: Injury or trauma; Fall; Blunt trauma (contusions or hematomas); Injury details: Low back pain TECHNIQUE: Imaging protocol: XR of the lumbosacral spine. Views: 2 or 3 views. COMPARISON: No relevant prior studies available. FINDINGS: Bones/joints: Normal. No acute fracture. Normal alignment. Soft tissues: Unremarkable. XR/XR lumbar spine 2-3V* [id number] IMPRESSION: No acute findings.
[2021-10-28 22:15] VITALS: BP 135/91; PULSE 92; RESP 18; TEMP 36.4; O2SAT 96
== END 2021-10-28 22:16 | disposition home or self-care (01) ==
PROVIDERS: Emergency Provider Nurse Practitioner Family
DX: S39.012A Strain of muscle, fascia and tendon of lower back, initial encounter (principal); S83.92XA Sprain of unspecified site of left knee, initial encounter; F17.210 Nicotine dependence, cigarettes, uncomplicated; Z89.511 Acquired absence of right leg below knee; W00.0XXA Fall on same level due to ice and snow, initial encounter
CPT/HCPCS: 72100; 73562; 99283

== ENCOUNTER 2021-10-31 20:57 | Emergency (ER) | payer MEDICARE, SELFPAY ==
[2021-10-31 20:59] VITALS: BP 145/90; PULSE 130; RESP 24; TEMP 36.6; O2SAT 94; BMI 31.1
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
--- NOTE | 2021-11-01 12:45 | DCPLANNER ---
Addendum entered by Nancy Samson 11/23/21 12:09: receivable manager was notified by the clinic, that clinic attempted to reach patient to schedule a follow up appointment. Clinic was unable to reach patient and a letter was sent to patient to call clinic to schedule an appointment. Addendum entered by Nancy Samson 11/01/21 13:08: This referral was made to ENT instead of general surgery. Original Note: receivable manager had message to schedule a follow up appointment for patient with general surgery. receivable manager emailed patients information to Florence Spaulding and Angelica at [facility] General Surgery / ENT clinic. Patients information will be printed and reviewed. Clinic will call patient with appointment information.
== END 2021-10-31 23:05 | disposition home or self-care (01) ==
PROVIDERS: Emergency Provider Emergency Medicine
DX: S02.2XXA Fracture of nasal bones, initial encounter for closed fracture (principal); Y04.2XXA Assault by strike against or bumped into by another person, initial encounter; F10.10 Alcohol abuse, uncomplicated; F17.210 Nicotine dependence, cigarettes, uncomplicated
CPT/HCPCS: 70450; 70486; 72125; 99282

== ENCOUNTER 2021-11-01 10:11 | Inpatient (IN) | payer MEDICARE, SELFPAY ==
[2021-11-01 11:38] VITALS: BP 142/87; PULSE 98; RESP 18; TEMP 36.7; O2SAT 96; BMI 26.6
[2021-11-01 11:46] VITALS: BP 142/87; PULSE 95; RESP 18; TEMP 36.7; O2SAT 95; BMI 34.0
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
[2021-11-01 12:34] LABS: Amphetamines Screen Urine Negative (Negative); Barbiturates Screen Urine Negative (Negative); Benzodiazepines Screen Urine Negative (Negative); Cocaine Screen Urine Negative (Negative); Opiate Screen Urine Negative (Negative); PCP Screen Urine Negative (Negative); THC Screen Urine Negative (Negative)
[2021-11-01 12:38] LABS: Basophils # 0.1 10^3/uL (0.0-0.1); Basophils % 0.7 %; Eosinophils # 0.1 10^3/uL (0.0-0.8); Eosinophils % 1.5 %; Hematocrit 44.6 % (42.0-52.0); Hemoglobin 15.4 g/dL (11.7-16.6); Lymphocytes % 22.9 %; Mean Corpuscular HGB Conc 34.5 g/dL (30.0-36.0); Mean Corpuscular Hemoglobin 31.8 pg (28.0-34.0); Mean Corpuscular Volume 92.1 fl (80-94); Mean Platelet Volume 11.3 fL (7.4-10.4); Monocytes % 11.2 %; Neutrophils # 5.63 10^3/uL (1.8-7.7); Neutrophils % 63.4 %; Nucleated Red Blood Cells % 0 %; Platelet Count 244 10^3/cmm (130-400); Red Blood Count 4.84 10^6/uL (4.1-5.3); Red Cell Distribution Width 13.2 % (12.1-15.1); White Blood Count 8.9 10^3/uL (4.0-10.0)
[2021-11-01 13:17] LABS: Acetaminophen < 5.0 ug/mL (10-30); Alanine Aminotransferase 104 U/L (0-41); Albumin Level 4.6 g/dL (3.5-5.2); Alcohol Level 68 mg/dL (0-10); Alkaline Phosphatase 85 IU/L (40-130); Anion Gap 19.9 (5-19); Aspartate Amino Transferase 86 U/L (0-40); Blood Urea Nitrogen 14 mg/dL (6-20); Calcium 7.9 mg/dL (8.5-10.5); Carbon Dioxide 23 mmol/L (22-29); Chloride 98 mmol/L (98-107); Globulin 3.3 g/dL (1.3-4.6); Glomerular Filtration Rate 122.5 mL/min (90-130); Glucose 85 mg/dL (65-115); Osmolality Calculated 284 mOsm/kg (285-295); Potassium 3.9 mmol/L (3.5-5.1); Salicylate 2.8 mg/dL (3-10); Sodium 137 mmol/L (136-145); Thyroid Stimulating Hormone 0.57 uIU/mL (0.27-4.20); Total Bilirubin 0.7 mg/dL (0.15-1.2); Total Protein 7.9 g/dL (6.6-8.7)
[2021-11-01] MEDS: LORazepam 1 mg Tablet PO ×3 (14:15→22:27)
[2021-11-01] MEDS: ondansetron 4 MG Tablet PO (14:15)
[2021-11-01 16:39] VITALS: BP 144/75; PULSE 100; RESP 18; TEMP 37.3; O2SAT 92
[2021-11-01 22:09] LABS: Adenovirus Not Detected (NOT DETECT); Chlamydia Pneumoniae Not Detected (NOT DETECT); Coronavirus 229E,HKU1,NL63,OC4 Not Detected (NOT DETECT); Human Metapneumovirus Not Detected (NOT DETECT); Human Rhinovirus/Enterovirus Not Detected (NOT DETECT); Influenza A Not Detected (NOT DETECT); Influenza A H1 Not Detected (NOT DETECT); Influenza A H1-2009 Not Detected (NOT DETECT); Influenza A H3 Not Detected (NOT DETECT); Influenza B Not Detected (NOT DETECT); Mycoplasma Pneumoniae Not Detected (NOT DETECT); Parainfluenza Virus Type 1 Not Detected (NOT DETECT); Parainfluenza Virus Type 2 Not Detected (NOT DETECT); Parainfluenza Virus Type 3 Not Detected (NOT DETECT); Parainfluenza Virus Type 4 Not Detected (NOT DETECT); Respiratory Syncytial Virus A Not Detected (NOT DETECT); Respiratory Syncytial Virus B Not Detected (NOT DETECT); SARS-COV-2 Not Detected (NOT DETECT)
--- NOTE | 2021-11-01 22:28 | PC.NURSE ---
medicated per order, calm and cooperative. respirations even equal and unlabored. NAD
[2021-11-02] VITALS (7 sets, daily range): BP systolic 132–151; BP diastolic 69–92; PULSE 84–100; RESP 14–20; TEMP 36.7–36.8; O2SAT 93–95
[2021-11-02] MEDS: LORazepam 2 mg Tablet PO ×3 (08:13→20:38)
[2021-11-02] MEDS: multivitamin therapeutic Tablet 1 TAB PO (12:57)
[2021-11-02] MEDS: folic acid 1 mg Tablet PO (12:57)
[2021-11-02] MEDS: thiamine 100 mg Tablet PO (12:57)
[2021-11-02] MEDS: hyDROXYzine 25 mg Capsule 50 MG PO (15:42)
[2021-11-02] MEDS: OLANZapine 5 mg ODT PO (15:42)
[2021-11-02] MEDS: baclofen 10 mg Tablet PO (20:24)
[2021-11-02] MEDS: venlafaxine ER (24HR) 150 mg Capsule PO (20:24)
--- NOTE | 2021-11-02 23:26 | PC.NURSE ---
2038-rec'd ativan for ETOH withdrawls./ 2138-States it is helping.
[2021-11-03] MEDS: hyDROXYzine 25 mg Capsule 50 MG PO ×2 (02:17→18:51)
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
[2021-11-03 06:00] VITALS: RESP 16
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
[2021-11-03] MEDS: acetaminophen 325 mg Tablet 650 MG PO (09:32)
[2021-11-03] MEDS: folic acid 1 mg Tablet PO (09:33)
[2021-11-03] MEDS: baclofen 10 mg Tablet PO ×3 (09:33→20:36)
[2021-11-03] MEDS: multivitamin therapeutic Tablet 1 TAB PO (09:33)
[2021-11-03] MEDS: thiamine 100 mg Tablet PO (09:33)
[2021-11-03] MEDS: OLANZapine 5 mg ODT PO (12:11)
[2021-11-03] MEDS: nicotine 4 mg lozenge MUCOUS MEM (14:50)
[2021-11-03] MEDS: LORazepam 2 mg Tablet PO ×2 (15:39→20:36)
[2021-11-03] MEDS: venlafaxine ER (24HR) 150 mg Capsule PO (20:36)
[2021-11-03 21:13] VITALS: BP 109/65; PULSE 72; RESP 16; O2SAT 95
[2021-11-03] MEDS: trazodone 50 mg Tablet PO (22:08)
--- NOTE | 2021-11-03 22:28 | PC.NURSE ---
2035-rec'd ativan for increased CIWA. He is very confused and delusional at times. 2135-Ativan helped some.
--- NOTE | 2021-11-03 23:12 | PC.NURSE ---
2207- rec'd trazodone for sleep. 2307- It was effective. Resting in bed with eyes closed.
[2021-11-04 04:08] VITALS: BMI 34.0
--- NOTE | 2021-11-04 07:20 | CTR_ITS ---
PROCEDURE INFORMATION: Exam: CT Head Without Contrast Exam date and time: 11/04/2021 7:20 AM Age: 46 years old Clinical indication: Altered mental status/memory loss; Confusion or disorientation TECHNIQUE: Imaging protocol: Computed tomography of the head without contrast. Radiation optimization: All CT scans at this facility use at least one of these dose optimization techniques: automated exposure control; mA and/or kV adjustment per patient size (includes targeted exams where dose is matched to clinical indication); or iterative reconstruction. COMPARISON: CT head wo con* [id number] 10/31/2021 9:59 PM RADIATION DOSE METRICS: Total DLP (mGy-cm): 1005.5 FINDINGS: Brain: Normal. No hemorrhage. Unremarkable white matter. No mass effect. Cerebral ventricles: No ventriculomegaly. Paranasal sinuses: Visualized sinuses are unremarkable. No fluid levels. Mastoid air cells: Visualized mastoid air cells are well aerated. Bones/joints: Unremarkable. No acute fracture. Soft tissues: Unremarkable. CT/CT head wo con* [id number] IMPRESSION: No acute intracranial abnormality.
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
[2021-11-04] MEDS: acetaminophen 325 mg Tablet 650 MG PO (10:03)
[2021-11-04] MEDS: nicotine 4 mg lozenge MUCOUS MEM (10:03)
[2021-11-04] MEDS: multivitamin therapeutic Tablet 1 TAB PO (10:03)
[2021-11-04] MEDS: folic acid 1 mg Tablet PO (10:04)
[2021-11-04] MEDS: thiamine 100 mg Tablet PO (10:04)
[2021-11-04] MEDS: baclofen 10 mg Tablet PO ×3 (10:04→20:44)
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
[2021-11-04 14:00] VITALS: BP 143/83; PULSE 69; RESP 18; TEMP 36.6; O2SAT 96
[2021-11-04] MEDS: ondansetron 4 MG Tablet PO (18:50)
[2021-11-04] MEDS: LORazepam 2 mg Tablet PO (18:50)
[2021-11-04] MEDS: venlafaxine ER (24HR) 150 mg Capsule PO (20:44)
[2021-11-04 21:29] VITALS: RESP 20
[2021-11-05 06:00] VITALS: BP 129/78; PULSE 102; RESP 20; TEMP 37.1; O2SAT 97
--- NOTE | 2021-11-05 09:18 | PC.NURSE ---
Patient scored 11 on CIWA, Ativan 2mg given with am meds.
[2021-11-05] MEDS: multivitamin therapeutic Tablet 1 TAB PO (10:23)
[2021-11-05] MEDS: LORazepam 2 mg Tablet PO (10:23)
[2021-11-05] MEDS: folic acid 1 mg Tablet PO (10:24)
[2021-11-05] MEDS: thiamine 100 mg Tablet PO (10:24)
[2021-11-05] MEDS: baclofen 10 mg Tablet PO ×2 (10:24→20:46)
--- NOTE | 2021-11-05 11:49 | NPU.GN ---
[facility] Topic: [place] General Mood of Group: Audi did not attend group today.
[2021-11-05] MEDS: OLANZapine 5 mg ODT PO (11:56)
[2021-11-05] MEDS: hyDROXYzine 25 mg Capsule 50 MG PO (11:56)
[2021-11-05 14:00] VITALS: BP 119/79; PULSE 112; RESP 17; TEMP 36.1; O2SAT 98
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
[2021-11-05 20:20] VITALS: BP 130/83; PULSE 78; RESP 20; TEMP 36.6; O2SAT 93
[2021-11-05] MEDS: venlafaxine ER (24HR) 150 mg Capsule PO (20:46)
[2021-11-06 06:00] VITALS: BP 143/96; PULSE 102; RESP 20; TEMP 36.4; O2SAT 97
[2021-11-06] MEDS: folic acid 1 mg Tablet PO (08:48)
[2021-11-06] MEDS: multivitamin therapeutic Tablet 1 TAB PO (08:48)
[2021-11-06] MEDS: thiamine 100 mg Tablet PO (08:48)
[2021-11-06] MEDS: acetaminophen 325 mg Tablet 650 MG PO (08:48)
[2021-11-06] MEDS: baclofen 10 mg Tablet PO ×2 (08:49→20:15)
[2021-11-06] MEDS: hyDROXYzine 25 mg Capsule 50 MG PO (09:21)
[2021-11-06] MEDS: OLANZapine 5 mg ODT PO ×2 (10:07→15:22)
--- NOTE | 2021-11-06 10:08 | PC.NURSE ---
Patient came to RN station C/O increased depression & anxiety over housing when discharged. Zydis 5mg given & patient was going to see if journalizing will help with depression/anxiety. I encouraged him to speak to MD about increased depression.
--- NOTE | 2021-11-06 11:51 | NPU.GN ---
[facility] Topic:Dice Breaker Group Activity General Mood of Group: Audi did not attend group today. He was sleeping.
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
[2021-11-06 14:00] VITALS: BP 121/79; PULSE 99; RESP 18; TEMP 36.5; O2SAT 98
[2021-11-06] MEDS: venlafaxine ER (24HR) 150 mg Capsule PO (20:15)
[2021-11-06 22:00] VITALS: BP 131/73; PULSE 79; RESP 20; TEMP 36.4; O2SAT 95
[2021-11-07] MEDS: hyDROXYzine 25 mg Capsule 50 MG PO ×3 (02:33→20:16)
--- NOTE | 2021-11-07 03:54 | PC.NURSE ---
0233 Patient awake and anxious. Vistaril 50mg po given for symptoms of anxiety. Medication was effective. Patient is resting quietly.
--- NOTE | 2021-11-07 03:55 | PC.NURSE ---
Patient came to nursing staff asking for medication for anxiety. Vistaril was given at 0233. Medication was effective.
[2021-11-07 06:00] VITALS: BP 118/81; PULSE 59; RESP 17; TEMP 36.6; O2SAT 98
[2021-11-07] MEDS: baclofen 10 mg Tablet PO ×3 (10:06→20:16)
[2021-11-07] MEDS: multivitamin therapeutic Tablet 1 TAB PO (10:06)
[2021-11-07] MEDS: thiamine 100 mg Tablet PO (10:06)
[2021-11-07] MEDS: folic acid 1 mg Tablet PO (10:06)
--- NOTE | 2021-11-07 10:46 | PC.NURSE ---
Addendum entered by Aaliyah Billings RN 11/07/21 12:27: Prn Hydroxyzine Patient states he continues to feel very anxious and is requesting additional medication for anxiety. Original Note: Prn note Patient c/o increase in anxiety, affect noted to be anxious. Requested medication, Hydroxyzine 50mg given.
--- NOTE | 2021-11-07 11:17 | NPU.GN ---
[facility] Topic: Thought Process General Mood of Group: Audi did attend and participate in group.He was social and his hygiene was good.
[2021-11-07] MEDS: OLANZapine 5 mg ODT PO ×2 (12:26→17:01)
--- NOTE | 2021-11-07 12:28 | PC.NURSE ---
Prn anxiety patient remains anxious and feels he is becoming agitated. Prn Zyprexa given for agitation.
[2021-11-07 13:24] VITALS: BP 127/80; PULSE 97; RESP 17; TEMP 36.9; O2SAT 96
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
--- NOTE | 2021-11-07 17:02 | PC.NURSE ---
Patient with request medication for agitation. Zydis 5 mg sl given.
[2021-11-07] MEDS: venlafaxine ER (24HR) 150 mg Capsule PO (20:16)
[2021-11-07 21:59] VITALS: BP 126/80; PULSE 102; RESP 18; TEMP 36.8; O2SAT 96
--- NOTE | 2021-11-08 02:51 | PC.NURSE ---
At 2016 the patient is requesting vistaril for anxiety. Slight tremors noted when he held his cup of water. Vistaril 50mg po given. Medication was effective and the patient was able to rest.
[2021-11-08 06:00] VITALS: BP 116/87; PULSE 100; RESP 18; TEMP 36.8; O2SAT 98
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
[2021-11-08] MEDS: thiamine 100 mg Tablet PO (08:58)
[2021-11-08] MEDS: baclofen 10 mg Tablet PO ×3 (08:58→20:21)
[2021-11-08] MEDS: multivitamin therapeutic Tablet 1 TAB PO (08:58)
[2021-11-08] MEDS: folic acid 1 mg Tablet PO (08:58)
[2021-11-08] MEDS: acetaminophen 325 mg Tablet 650 MG PO (09:32)
[2021-11-08] MEDS: OLANZapine 5 mg ODT PO ×2 (10:51→16:35)
[2021-11-08 13:51] VITALS: BP 122/83; PULSE 78; RESP 17; TEMP 36.8; O2SAT 98
[2021-11-08] MEDS: hyDROXYzine 25 mg Capsule 50 MG PO (15:01)
[2021-11-08 19:44] VITALS: BP 128/83; PULSE 73; RESP 16; TEMP 36.3; O2SAT 95
[2021-11-08] MEDS: docusate sodium 100 mg Capsule 200 MG PO (20:21)
[2021-11-08] MEDS: venlafaxine ER (24HR) 150 mg Capsule PO (20:21)
--- NOTE | 2021-11-08 21:10 | PC.NURSE ---
Patient complained of constipation. Colace ordered and given.
[2021-11-09 06:00] VITALS: BP 120/81; PULSE 72; RESP 18; TEMP 36.6; O2SAT 97
[2021-11-09] MEDS: thiamine 100 mg Tablet PO (09:20)
[2021-11-09] MEDS: folic acid 1 mg Tablet PO (09:20)
[2021-11-09] MEDS: multivitamin therapeutic Tablet 1 TAB PO (09:20)
[2021-11-09] MEDS: baclofen 10 mg Tablet PO ×3 (09:20→21:24)
[2021-11-09] MEDS: OLANZapine 5 mg ODT PO ×2 (09:20→15:45)
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
[2021-11-09 13:46] VITALS: BP 140/77; PULSE 76; RESP 18; TEMP 37; O2SAT 98
[2021-11-09] MEDS: hyDROXYzine 25 mg Capsule 50 MG PO ×2 (14:01→21:24)
--- NOTE | 2021-11-09 16:51 | PC.NURSE ---
PRN Medications- Patient has utilized PRN medications throughout shift as follows- Reported increased agitation at 0915. Took PRN Zydis at that time. C/o anxiety and took PRN Vistaril at 1400 that was only somewhat effective. C/o continued anxiety and building agitation. Took PRN Zydis at 1545. Reports that Zydis has been effective when used today.
[2021-11-09 20:12] VITALS: BP 143/89; PULSE 73; RESP 20; TEMP 36.5; O2SAT 95
[2021-11-09] MEDS: venlafaxine ER (24HR) 150 mg Capsule PO (21:24)
--- NOTE | 2021-11-10 03:46 | PC.NURSE ---
2123 Requested meds for anxiety vistaril given po. 2223 resting in bed with eyes closed.
[2021-11-10] MEDS: hyDROXYzine 25 mg Capsule 50 MG PO ×2 (04:58→13:42)
[2021-11-10 06:00] VITALS: BP 148/93; PULSE 87; RESP 16; O2SAT 91
[2021-11-10] MEDS: OLANZapine 5 mg ODT PO ×2 (06:18→14:55)
[2021-11-10] MEDS: multivitamin therapeutic Tablet 1 TAB PO (09:14)
[2021-11-10] MEDS: baclofen 10 mg Tablet PO ×3 (09:14→20:53)
[2021-11-10] MEDS: folic acid 1 mg Tablet PO (09:14)
[2021-11-10] MEDS: thiamine 100 mg Tablet PO (09:14)
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
[2021-11-10 14:00] VITALS: RESP 17
[2021-11-10] MEDS: acetaminophen 325 mg Tablet 650 MG PO (17:48)
[2021-11-10] MEDS: venlafaxine ER (24HR) 150 mg Capsule PO (20:53)
[2021-11-10 21:20] VITALS: BP 132/80; PULSE 90; RESP 20; TEMP 36.8; O2SAT 95
[2021-11-11 06:00] VITALS: BP 135/83; PULSE 90; RESP 20; TEMP 36.4; O2SAT 96
[2021-11-11] MEDS: baclofen 10 mg Tablet PO ×2 (09:00→14:52)
[2021-11-11] MEDS: folic acid 1 mg Tablet PO (09:00)
[2021-11-11] MEDS: thiamine 100 mg Tablet PO (09:00)
[2021-11-11] MEDS: hyDROXYzine 25 mg Capsule 50 MG PO ×2 (09:00→17:39)
[2021-11-11] MEDS: multivitamin therapeutic Tablet 1 TAB PO (09:06)
[2021-11-11] MEDS: OLANZapine 5 mg ODT PO (10:17)
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
[2021-11-11 14:00] VITALS: BP 114/66; PULSE 104; RESP 17; TEMP 36.9; O2SAT 96
[2021-11-11 19:35] VITALS: BP 135/84; PULSE 75; RESP 17; TEMP 36.8; O2SAT 95
[2021-11-12 06:00] VITALS: BP 133/88; PULSE 64; RESP 15; TEMP 36.7; O2SAT 98
[2021-11-12] MEDS: thiamine 100 mg Tablet PO (08:34)
[2021-11-12] MEDS: folic acid 1 mg Tablet PO (08:34)
[2021-11-12] MEDS: OLANZapine 5 mg ODT PO (08:34)
[2021-11-12] MEDS: baclofen 10 mg Tablet PO (08:34)
[2021-11-12] MEDS: multivitamin therapeutic Tablet 1 TAB PO (08:34)
[2021-11-12] MEDS: hyDROXYzine 25 mg Capsule 50 MG PO (11:14)
[2021-11-12] MEDS: acetaminophen 325 mg Tablet 650 MG PO (12:02)
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
[2021-11-12 12:28] VITALS: BP 133/88; PULSE 64; RESP 15; TEMP 36.7; O2SAT 98
== END 2021-11-12 12:52 | disposition home or self-care (01) | DRG 885 ==
LOC: ER 11-02 08:35 → NP 11-02 11:51
PROVIDERS: Emergency Medicine; Admitting Provider Psychiatry & Neurology Psychiatry; Emergency Provider Emergency Medicine; Visit Provider Psychiatry & Neurology Psychiatry
DX: F33.2 Major depressive disorder, recurrent severe without psychotic features (principal); F10.139 Alcohol abuse with withdrawal, unspecified; R45.851 Suicidal ideations; Z59.00 Homelessness unspecified; F17.210 Nicotine dependence, cigarettes, uncomplicated; Z89.511 Acquired absence of right leg below knee; S02.2XXA Fracture of nasal bones, initial encounter for closed fracture; Y04.2XXA Assault by strike against or bumped into by another person, initial encounter
CPT/HCPCS: 70450; 80053; 80306; 80307; 84443; 85025; 87635; 97150; 97165; 99285; Q0162

== ENCOUNTER 2022-10-29 10:52 | Inpatient (IN) | payer MEDICARE, MEDICAID, SELFPAY ==
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
[2022-10-29 12:11] LABS: Basophils # 0.1 10^3/uL (0.0-0.1); Basophils % 0.7 %; Eosinophils # 0.6 10^3/uL (0.0-0.8); Eosinophils % 4.3 %; Hematocrit 47.9 % (42.0-52.0); Hemoglobin 16.7 g/dL (11.7-16.6); Lymphocytes # 3.3 10^3/uL (0.8-4.8); Lymphocytes % 23.7 %; Mean Corpuscular HGB Conc 34.9 g/dL (30.0-36.0); Mean Corpuscular Hemoglobin 31.5 pg (28.0-34.0); Mean Corpuscular Volume 90.2 fl (80-94); Mean Platelet Volume 12.5 fL (7.4-10.4); Monocytes # 0.9 10^3/uL (0.2-0.9); Monocytes % 6.7 %; Neutrophils # 8.86 10^3/uL (1.8-7.7); Neutrophils % 64.1 %; Nucleated Red Blood Cells % 0 %; Platelet Count 235 10^3/cmm (130-400); Red Blood Count 5.31 10^6/uL (4.1-5.3); Red Cell Distribution Width 12.4 % (12.1-15.1); White Blood Count 13.8 10^3/uL (4.0-10.0)
[2022-10-29 12:12] LABS: Amphetamines Screen Urine Negative (Negative); Barbiturates Screen Urine Negative (Negative); Benzodiazepines Screen Urine Negative (Negative); Cocaine Screen Urine Negative (Negative); Opiate Screen Urine Negative (Negative); PCP Screen Urine Negative (Negative); THC Screen Urine Negative (Negative)
--- NOTE | 2022-10-29 12:17 | PC.PHAR ---
pt states he takes no rx or otc medications
--- NOTE | 2022-10-29 12:20 | PC.NURSE ---
Unable to perform vital signs, patient irritated and non compliant.
[2022-10-29 12:23] LABS: Alanine Aminotransferase 120 U/L (0-41); Albumin Level 4.5 g/dL (3.5-5.2); Alcohol Level 221 mg/dL (0-10); Alkaline Phosphatase 86 U/L (40-130); Anion Gap 15.7 (5-19); Aspartate Amino Transferase 53 U/L (0-40); Blood Urea Nitrogen 9 mg/dL (6-20); Calcium 8.8 mg/dL (8.5-10.5); Carbon Dioxide 23 mmol/L (22-29); Chloride 104 mmol/L (98-107); Globulin 3.4 g/dL (1.3-4.6); Glucose 109 mg/dL (65-115); Osmolality Calculated 287 mOsm/kg (285-295); Potassium 3.7 mmol/L (3.5-5.1); Sodium 139 mmol/L (136-145); Total Bilirubin 0.4 mg/dL (0.15-1.2); Total Protein 7.9 g/dL (6.6-8.7)
[2022-10-29 12:27] LABS: Acetaminophen < 5.0 ug/mL (10-30); Salicylate < 0.3 mg/dL (3-10)
--- NOTE | 2022-10-29 12:43 | PC.NURSE ---
96 hour hold rights reviewed and read with patient. Copy given to patient and patient verbalized understanding.
[2022-10-29 14:10] VITALS: BP 108/72; PULSE 89; RESP 14; O2SAT 96
[2022-10-29 15:07] VITALS: BP 121/74; PULSE 96; RESP 17; TEMP 36.7; O2SAT 96
[2022-10-29] MEDS: LORazepam 2 mg Tablet PO ×2 (15:28→16:35)
--- NOTE | 2022-10-29 15:47 | PC.NURSE ---
PRN Long Term Care Social Worker Patient scored 16 on CIWA. Given ativan 2 mg PO per CIWA protocol.
[2022-10-30] MEDS: LORazepam 2 mg Tablet PO ×3 (04:40→18:17)
[2022-10-30] MEDS: folic acid 1 mg Tablet PO (08:07)
[2022-10-30] MEDS: OLANZapine 5 mg ODT PO (08:07)
[2022-10-30] MEDS: thiamine 100 mg Tablet PO (08:07)
[2022-10-30] MEDS: multivitamin therapeutic Tablet 1 TAB PO (08:07)
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
[2022-10-30 14:00] VITALS: BP 124/70; PULSE 74; RESP 18; TEMP 36.9; O2SAT 98
[2022-10-30 21:29] VITALS: BP 136/78; PULSE 78; RESP 18; TEMP 37; O2SAT 92
[2022-10-31] MEDS: LORazepam 2 mg Tablet PO (05:39)
[2022-10-31] MEDS: acetaminophen 325 mg Tablet 650 MG PO (05:39)
[2022-10-31 06:00] VITALS: BP 121/81; PULSE 85; RESP 16; TEMP 37; O2SAT 94
[2022-10-31] MEDS: multivitamin therapeutic Tablet 1 TAB PO (08:58)
[2022-10-31] MEDS: folic acid 1 mg Tablet PO (08:58)
[2022-10-31] MEDS: thiamine 100 mg Tablet PO (08:58)
[2022-10-31] MEDS: venlafaxine ER (24HR) 37.5 mg Capsule PO (09:17)
[2022-10-31] MEDS: hyDROXYzine 25 mg Capsule 50 MG PO (09:17)
[2022-10-31] MEDS: OLANZapine 5 mg ODT PO (09:17)
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
[2022-10-31 14:00] VITALS: BP 116/66; PULSE 91; RESP 16; TEMP 37; O2SAT 96
[2022-11-01 06:00] VITALS: BP 152/88; PULSE 91; RESP 18; TEMP 37; O2SAT 94
[2022-11-01] MEDS: fixodent 39 gm Tube 1 APPLIC DENTAL (06:41)
[2022-11-01] MEDS: multivitamin therapeutic Tablet 1 TAB PO (09:45)
[2022-11-01] MEDS: thiamine 100 mg Tablet PO (09:45)
[2022-11-01] MEDS: venlafaxine ER (24HR) 37.5 mg Capsule PO (09:45)
[2022-11-01] MEDS: folic acid 1 mg Tablet PO (09:45)
[2022-11-01] MEDS: hyDROXYzine 25 mg Capsule 50 MG PO (09:45)
[2022-11-01] MEDS: LORazepam 2 mg Tablet PO (12:27)
[2022-11-01 14:00] VITALS: BP 140/81; PULSE 89; RESP 20; TEMP 37; O2SAT 93
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
[2022-11-01 20:28] VITALS: BP 122/78; PULSE 77; RESP 16; TEMP 36.7; O2SAT 96
[2022-11-02 06:00] VITALS: RESP 16
[2022-11-02] MEDS: thiamine 100 mg Tablet PO (08:35)
[2022-11-02] MEDS: venlafaxine ER (24HR) 37.5 mg Capsule PO (08:35)
[2022-11-02] MEDS: multivitamin therapeutic Tablet 1 TAB PO (08:35)
[2022-11-02] MEDS: folic acid 1 mg Tablet PO (08:36)
[2022-11-02] MEDS: hyDROXYzine 25 mg Capsule 50 MG PO ×2 (08:41→15:52)
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
[2022-11-02 14:00] VITALS: BP 107/81; PULSE 82; RESP 18; TEMP 36.9; O2SAT 96
[2022-11-02] MEDS: OLANZapine 5 mg ODT PO ×2 (14:41→20:22)
[2022-11-02] MEDS: ondansetron 4 MG Tablet PO (15:52)
[2022-11-02] MEDS: trazodone 50 mg Tablet PO (20:22)
[2022-11-02 21:09] VITALS: BP 134/87; PULSE 88; RESP 17; TEMP 36.6; O2SAT 96
--- NOTE | 2022-11-02 21:11 | PC.NURSE ---
Addendum entered and electronically signed by Amber Pan RN 11/02/22 21:12: PT WAS GIVEN ZYDIS 5 MG PO AND NOT VISTARIL. SEE MAR FOR DETAILS AND ADMIN TIMES. Original Note: PT REQUESTED MEDICATION FOR ANXIETY REDUCTION AND INSOMNIA. TRAZADONE AND VISTARIL WAS GIVEN ORDERED. SEE MAR FOR DETAILS.
[2022-11-03 04:51] VITALS: BMI 32.5
[2022-11-03] MEDS: thiamine 100 mg Tablet PO (09:18)
[2022-11-03] MEDS: folic acid 1 mg Tablet PO (09:18)
[2022-11-03] MEDS: multivitamin therapeutic Tablet 1 TAB PO (09:18)
[2022-11-03] MEDS: venlafaxine ER (24HR) 37.5 mg Capsule PO ×2 (09:18→12:36)
[2022-11-03] MEDS: hyDROXYzine 25 mg Capsule 50 MG PO ×2 (09:47→18:08)
[2022-11-03] MEDS: OLANZapine 5 mg ODT PO ×2 (09:47→16:55)
[2022-11-03 14:00] VITALS: BP 119/78; PULSE 85; RESP 18; TEMP 36.8; O2SAT 96
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
[2022-11-03 19:35] VITALS: BP 116/75; PULSE 75; RESP 16; TEMP 36.5; O2SAT 94
[2022-11-04 06:00] VITALS: BP 130/78; PULSE 70; RESP 20; TEMP 36.7; O2SAT 93
[2022-11-04] MEDS: thiamine 100 mg Tablet PO (08:29)
[2022-11-04] MEDS: folic acid 1 mg Tablet PO (08:29)
[2022-11-04] MEDS: multivitamin therapeutic Tablet 1 TAB PO (08:29)
[2022-11-04] MEDS: venlafaxine ER (24HR) 75 mg Capsule PO (08:29)
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
[2022-11-04 09:55] VITALS: BP 130/78; PULSE 70; RESP 20; TEMP 36.7; O2SAT 93
--- NOTE | 2022-11-04 10:16 | DCPLANNER ---
Imm completed on 11/04/22 @ 1016. Pt was given a copy of rights and stated he understood rights.
[2022-11-04] MEDS: hyDROXYzine 25 mg Capsule 50 MG PO (12:47)
--- NOTE | 2022-11-04 14:05 | PC.NURSE ---
Discharge information and prescription reviewed with pt; he verbalized his understanding. Audi said he feels ready to leave. Denies suicidal/homicidal ideations and hallucinations. Pt awaiting his ride.
--- NOTE | 2022-11-04 16:30 | PC.NURSE ---
Pt left ambulatory with his belongings and his medication. Pt offered no complaints.
== END 2022-11-04 16:30 | disposition home or self-care (01) | DRG 881 ==
LOC: ER 12:49 → NP 23:18
PROVIDERS: Physician Assistant; Admitting Provider Psychiatry & Neurology Psychiatry; Emergency Provider Family Medicine; Visit Provider Psychiatry & Neurology Psychiatry
DX: F32.A Depression, unspecified (principal); R45.851 Suicidal ideations; Z89.511 Acquired absence of right leg below knee; F10.10 Alcohol abuse, uncomplicated; T43.216A Underdosing of selective serotonin and norepinephrine reuptake inhibitors, initial encounter; Z91.128 Patient's intentional underdosing of medication regimen for other reason; F17.200 Nicotine dependence, unspecified, uncomplicated
CPT/HCPCS: 36415; 80053; 80306; 80307; 85025; 97150; 97165; 99238; 99285; Q0162

== ENCOUNTER 2022-12-26 09:06 | Inpatient (IN) | payer MEDICARE, MEDICAID, SELFPAY ==
[2022-12-26 09:02] VITALS: BP 125/7; PULSE 85; RESP 16; TEMP 36.5; O2SAT 96
--- NOTE | 2022-12-26 09:18 | ECG_ITS ---
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 Measurements Intervals Schlater Rate: 80 P: 123 MS: 158 QRS: 11 QRSD: 94 T: 50 QT: 351 QTc: 406 Interpretive Statements SINUS RHYTHM POSSIBLE LEFT ATRIAL ENLARGEMENT [-0.1mV P-WAVE IN V1/V2] No previous ECG available for comparison Electronically Signed On 12-26-2022 16:32:58 CDT by Marcus Rojas M.D. [id number]
[2022-12-26 09:25] LABS: Add Urine Microscopic? NO; Charge for UA Resulting for Rev
[2022-12-26 09:27] LABS: Basophils # 0.1 10^3/uL (0.0-0.1); Basophils % 0.7 %; Eosinophils # 0.8 10^3/uL (0.0-0.8); Eosinophils % 6.4 %; Hematocrit 50.6 % (42.0-52.0); Hemoglobin 17.2 g/dL (11.7-16.6); Lymphocytes # 3.5 10^3/uL (0.8-4.8); Lymphocytes % 26.6 %; Mean Corpuscular Hemoglobin 30.5 pg (28.0-34.0); Mean Corpuscular Volume 89.7 fl (80-94); Mean Platelet Volume 12.2 fL (7.4-10.4); Monocytes # 0.7 10^3/uL (0.2-0.9); Monocytes % 5.7 %; Neutrophils # 7.82 10^3/uL (1.8-7.7); Nucleated Red Blood Cells % 0 %; Platelet Count 237 10^3/cmm (130-400); Red Blood Count 5.64 10^6/uL (4.1-5.3); Red Cell Distribution Width 13.1 % (12.1-15.1)
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
[2022-12-26 09:45] LABS: Alanine Aminotransferase 147 U/L (0-41); Albumin Level 4.3 g/dL (3.5-5.2); Alkaline Phosphatase 85 U/L (40-130); Anion Gap 14.5 (5-19); Aspartate Amino Transferase 85 U/L (0-40); Blood Urea Nitrogen 11 mg/dL (6-20); Calcium 8.5 mg/dL (8.5-10.5); Carbon Dioxide 26 mmol/L (22-29); Chloride 105 mmol/L (98-107); Globulin 4.2 g/dL (1.3-4.6); Glomerular Filtration Rate 104.5 mL/min (90-130); Glucose 95 mg/dL (65-115); Osmolality Calculated 291 mOsm/kg (285-295); Potassium 4.5 mmol/L (3.5-5.1); Sodium 141 mmol/L (136-145); Total Bilirubin 0.4 mg/dL (0.15-1.2); Total Protein 8.5 g/dL (6.6-8.7)
[2022-12-26 09:54] LABS: Bilirubin Urine Neg (Negative); Blood Urine Neg (Negative); Glucose Urine UA Norm (Normal); Ketones Urine 1+ (Negative); Leukocyte Esterase Urine Negative (Negative); Nitrate Urine Negative (Negative); Protein Urine Neg (Negative); Urine Appearance Clear (CLEAR); Urine Color Yellow (Yellow); Urobilinogen Urine Neg (Negative); pH Urine 5 (5-7)
[2022-12-26 09:59] LABS: Acetaminophen < 5.0 ug/mL (10-30); Salicylate < 0.3 mg/dL (3-10)
[2022-12-26] MEDS: LORazepam 2 mg Tablet PO (14:48)
[2022-12-26 20:32] VITALS: BP 129/69; PULSE 91; RESP 18; O2SAT 94
[2022-12-26 22:23] VITALS: BP 127/55; PULSE 91; RESP 16; TEMP 36.6; O2SAT 95
[2022-12-26 22:26] LABS: Alcohol Level 201 mg/dL (0-10)
[2022-12-26 22:46] LABS: Amphetamines Screen Urine Negative (Negative); Barbiturates Screen Urine Negative (Negative); Benzodiazepines Screen Urine Negative (Negative); Cocaine Screen Urine Negative (Negative); Opiate Screen Urine Negative (Negative); PCP Screen Urine Negative (Negative); THC Screen Urine Negative (Negative)
[2022-12-27] MEDS: LORazepam 2 mg Tablet PO (02:35)
[2022-12-27 06:00] VITALS: RESP 16
--- NOTE | 2022-12-27 08:29 | PC.OT ---
OT Jurgen Attempted - Patient asleep in room at time of evaluation, patient refused and asked for therapist to attempt at a later time.
[2022-12-27] MEDS: hyDROXYzine 25 mg Capsule 50 MG PO ×2 (09:05→14:41)
[2022-12-27] MEDS: folic acid 1 mg Tablet PO (09:05)
[2022-12-27] MEDS: multivitamin therapeutic Tablet 1 TAB PO (09:05)
[2022-12-27] MEDS: thiamine 100 mg Tablet PO (09:05)
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
[2022-12-27 14:00] VITALS: BP 102/68; PULSE 77; RESP 16; TEMP 36.6; O2SAT 95
--- NOTE | 2022-12-27 15:29 | PC.OT ---
OT Eval Attempted - Patient in bed and would not wake up to participate in eval on this day. Will attempt again at a later date.
[2022-12-27] MEDS: venlafaxine ER (24HR) 37.5 mg Capsule PO (16:47)
[2022-12-27] MEDS: OLANZapine 5 mg ODT PO (16:47)
[2022-12-27 20:54] VITALS: RESP 18
[2022-12-28 06:00] VITALS: RESP 18
[2022-12-28] MEDS: folic acid 1 mg Tablet PO (11:01)
[2022-12-28] MEDS: thiamine 100 mg Tablet PO (11:01)
[2022-12-28] MEDS: multivitamin therapeutic Tablet 1 TAB PO (11:02)
[2022-12-28] MEDS: venlafaxine ER (24HR) 37.5 mg Capsule PO (11:02)
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
[2022-12-28] MEDS: hyDROXYzine 25 mg Capsule 50 MG PO (12:10)
[2022-12-28] MEDS: OLANZapine 5 mg ODT PO (12:48)
[2022-12-28 14:00] VITALS: BP 125/74; PULSE 73; RESP 16; TEMP 36.6; O2SAT 96
[2022-12-28 20:13] VITALS: BP 113/69; PULSE 74; RESP 18; TEMP 36.8; O2SAT 98
[2022-12-29 06:00] VITALS: BP 132/88; PULSE 87; RESP 16; TEMP 36.6; O2SAT 96
[2022-12-29] MEDS: hyDROXYzine 25 mg Capsule 50 MG PO (06:18)
[2022-12-29] MEDS: fixodent 39 gm Tube 1 APPLIC DENTAL (06:19)
[2022-12-29] MEDS: venlafaxine ER (24HR) 37.5 mg Capsule 75 MG PO (08:45)
[2022-12-29] MEDS: thiamine 100 mg Tablet PO (08:46)
[2022-12-29] MEDS: folic acid 1 mg Tablet PO (08:46)
[2022-12-29] MEDS: multivitamin therapeutic Tablet 1 TAB PO (08:46)
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
[2022-12-29 14:00] VITALS: BP 120/81; PULSE 70; RESP 18; TEMP 36.6; O2SAT 92
[2022-12-29] MEDS: OLANZapine 5 mg ODT PO (17:12)
[2022-12-29 20:10] VITALS: BP 142/78; PULSE 74; RESP 20; TEMP 36.6; O2SAT 97
[2022-12-30 06:00] VITALS: BP 146/88; PULSE 67; RESP 20; TEMP 36.4; O2SAT 98
[2022-12-30] MEDS: hyDROXYzine 25 mg Capsule 50 MG PO ×2 (08:50→19:21)
[2022-12-30] MEDS: thiamine 100 mg Tablet PO (08:51)
[2022-12-30] MEDS: multivitamin therapeutic Tablet 1 TAB PO (08:51)
[2022-12-30] MEDS: folic acid 1 mg Tablet PO (08:51)
[2022-12-30] MEDS: venlafaxine ER (24HR) 37.5 mg Capsule 75 MG PO (08:51)
--- NOTE | 2022-12-30 09:46 | PC.OT ---
OT Eval Attempted - Patient asleep at time of evaluation, patient would not wake to participate. Eval will be attempted again later this day.
[2022-12-30] MEDS: OLANZapine 5 mg ODT PO (12:00)
--- NOTE | 2022-12-30 12:01 | PC.NURSE ---
pt stated that his anxiety is a 7/10 and his agitation is a 5/10. pt requested medications to alleviate symptoms. this RN gave prn dose of zydis.
[2022-12-30 14:00] VITALS: BP 119/71; PULSE 80; RESP 16; TEMP 36.6; O2SAT 96
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
[2022-12-30] MEDS: quetiapine XR (24HR) 50 mg Tablet PO (19:22)
--- NOTE | 2022-12-30 19:25 | PC.NURSE ---
PRN vistaril for anxiety given as ordered per pt request.
[2022-12-30 19:56] VITALS: BP 112/71; PULSE 77; RESP 18; TEMP 36.7; O2SAT 96
[2022-12-31 06:00] VITALS: BP 149/96; PULSE 77; RESP 18; TEMP 36.4; O2SAT 97
[2022-12-31] MEDS: thiamine 100 mg Tablet PO (08:10)
[2022-12-31] MEDS: multivitamin therapeutic Tablet 1 TAB PO (08:11)
[2022-12-31] MEDS: folic acid 1 mg Tablet PO (08:11)
[2022-12-31] MEDS: hyDROXYzine 25 mg Capsule 50 MG PO ×3 (08:11→20:12)
[2022-12-31] MEDS: venlafaxine ER (24HR) 37.5 mg Capsule 112.5 MG PO (08:12)
[2022-12-31] MEDS: OLANZapine 5 mg ODT PO (11:36)
[2022-12-31 14:00] VITALS: BP 139/82; PULSE 81; RESP 16; TEMP 36.6; O2SAT 94
[2022-12-31] MEDS: baclofen 10 mg Tablet PO (15:39)
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
[2022-12-31] MEDS: quetiapine XR (24HR) 50 mg Tablet PO (20:12)
[2022-12-31 20:32] VITALS: BP 123/77; PULSE 84; RESP 18; TEMP 36.8; O2SAT 96
[2022-12-31] MEDS: trazodone 50 mg Tablet PO (21:17)
[2023-01-01 06:00] VITALS: BP 119/82; PULSE 74; RESP 18; TEMP 36.6; O2SAT 97
[2023-01-01] MEDS: folic acid 1 mg Tablet PO (08:26)
[2023-01-01] MEDS: thiamine 100 mg Tablet PO (08:26)
[2023-01-01] MEDS: multivitamin therapeutic Tablet 1 TAB PO (08:27)
[2023-01-01] MEDS: venlafaxine ER (24HR) 37.5 mg Capsule 112.5 MG PO (08:27)
[2023-01-01] MEDS: fixodent 39 gm Tube 1 APPLIC DENTAL (08:30)
[2023-01-01] MEDS: baclofen 10 mg Tablet PO (08:58)
[2023-01-01] MEDS: hyDROXYzine 25 mg Capsule 50 MG PO ×2 (12:35→18:23)
[2023-01-01 14:00] VITALS: BP 125/77; PULSE 69; RESP 18; TEMP 36.7; O2SAT 96
[2023-01-01] MEDS: OLANZapine 5 mg ODT PO (14:13)
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
[2023-01-01] MEDS: nicotine 4 mg lozenge MUCOUS MEM ×2 (18:37→20:38)
[2023-01-01] MEDS: quetiapine XR (24HR) 50 mg Tablet 150 MG PO (20:37)
[2023-01-01 22:00] VITALS: BP 118/79; PULSE 82; RESP 15; TEMP 36.8; O2SAT 93
[2023-01-02 06:00] VITALS: BP 113/62; PULSE 86; RESP 17; TEMP 36.7; O2SAT 95
[2023-01-02] MEDS: folic acid 1 mg Tablet PO (09:06)
[2023-01-02] MEDS: venlafaxine ER (24HR) 37.5 mg Capsule 112.5 MG PO (09:06)
[2023-01-02] MEDS: multivitamin therapeutic Tablet 1 TAB PO (09:06)
[2023-01-02] MEDS: baclofen 10 mg Tablet PO (09:06)
[2023-01-02] MEDS: thiamine 100 mg Tablet PO (09:06)
[2023-01-02] MEDS: nicotine 4 mg lozenge MUCOUS MEM ×3 (09:08→13:17)
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
[2023-01-02 14:01] VITALS: BP 113/62; PULSE 86; RESP 17; TEMP 36.7; O2SAT 95
--- NOTE | 2023-01-02 14:19 | DCPLANNER ---
. IMM was given to pt and rights explained and a copy was placed in pts file.
== END 2023-01-02 15:19 | disposition home or self-care (01) | DRG 881 ==
LOC: ER 17:07 → NP 19:59
PROVIDERS: Admitting Provider Psychiatry & Neurology Psychiatry; Emergency Provider Family Medicine; Visit Provider Psychiatry & Neurology Psychiatry
DX: F32.A Depression, unspecified (principal); R45.851 Suicidal ideations; B18.2 Chronic viral hepatitis C; F10.20 Alcohol dependence, uncomplicated; Y90.7 Blood alcohol level of 200-239 mg/100 ml; R45.850 Homicidal ideations; F17.210 Nicotine dependence, cigarettes, uncomplicated; Z89.511 Acquired absence of right leg below knee; Z91.51 Personal history of suicidal behavior; Z87.81 Personal history of (healed) traumatic fracture
CPT/HCPCS: 36415; 80053; 80306; 80307; 81003; 85025; 93005; 97150; 97165; 99285

== ENCOUNTER 2023-01-24 22:19 | Emergency (ER) | payer MEDICARE, MEDICAID, SELFPAY ==
[2023-01-24 22:28] VITALS: BP 155/98; PULSE 79; RESP 20; TEMP 36.7; O2SAT 96; BMI 34.2
== END 2023-01-25 01:44 | disposition left against medical advice (07) ==
PROVIDERS: Emergency Provider Family Medicine; PCP Family Medicine
DX: Z53.21 Procedure and treatment not carried out due to patient leaving prior to being seen by health care provider (principal)

== ENCOUNTER 2023-02-11 08:46 | Emergency (ER) | payer MEDICARE, MEDICAID, SELFPAY ==
[2023-02-11 08:50] VITALS: BP 115/93; PULSE 104; RESP 18; TEMP 36.6; O2SAT 94; BMI 33.4
--- NOTE | 2023-02-11 09:03 | ED_ITS ---
Documented by User: EDELMIRA Aguilar 02/11/23 10:21 HPI - Alcohol General: Chief Complaint: Alcohol Stated Complaint: n/v Time Seen by Provider: 02/11/23 08:48 Source: patient Mode of arrival: ambulatory Limitations: no limitations History of Present Illness: Patient is a 48-year-old male with a longstanding history of alcohol abuse here requesting medical alcohol detox. He states he has a rehabilitation facility in [place] who is willing to accept him but stated he needed medical detox beforehand. States his last drink was last night. He states today he has had nausea, vomiting, sweatiness, and anxiety. He states in the past he has claimed he is suicidal so that ED providers would admit him to [facility] for detox. Patient has never tried to detox at home with medications such as Librium. MD complaint: alcohol withdrawal, alcohol dependence and medical clearance for detox facility Last drink: Hours (ago) Chronic alcohol use: Yes Previous visits for alcohol intoxication: Yes Recent trauma: No Associated symptoms: Reports nausea and vomiting; Deny abdominal pain, hematemesis or syncope Treatments prior to arrival: none Review of Systems Const: Reports: chills and other (sweats); Denies: fever(s), body aches, fatigue or malaise Eyes: Denies: change in vision, blurry vision, photophobia, floaters or seeing flashes Card: Denies: chest pain, palpitations, irregular heart rhythm, edema, lightheadedness, syncope, pre-syncope, dyspnea on exertion or orthopnea Resp: Denies: dyspnea GI: Reports: nausea and vomiting; Denies: abdominal pain or hematemesis Musc: Denies: neck pain, back pain, extremity pain or joint pain Skin/Breast: Denies: rash Neuro: Reports: headache(s); Denies: numbness in extremities, weakness in extremities or sensory changes PFSH ED PFSH: Medical History Alcohol abuse Psychiatric care Surgical History Hx of BKA Family History Mother Diabetes Cancer Social History Smoking and tobacco status: current every day smoker cigarettes Packs smoked per day: 0.5 Second hand smoke exposure: No Smoking risk assessment/counseling performed?: No Alcohol intake: former Desire information about alcohol rehabilitation?: No Counseling given: No Substance/Drug Use: current Desire information about substance/drug rehabilitation?: No Counseling given: No Adopted: No Caregiver/support person: No Lives independently: Yes Housing: House service: No Current occupational status: unemployed Pets and animals: No Do you think of yourself as: Straight/Heterosexual Current gender identity: Male Physical Exam Const: COMMON NORMALS: no acute distress, average body habitus, patient oriented x3, no limitations, alert and well nourished GENERAL APPEARANCE: cooperative ORIENTATION/CONSCIOUSNESS: Yes awake, Yes oriented to person, Yes oriented to place and Yes oriented to time OTHER: slightly diaphoretic HENMT: COMMON NORMALS: normocephalic and atraumatic HEAD & SCALP: normal to inspection, normocephalic and atraumatic Neck/C-Spine: COMMON NORMALS: full ROM, no lymphadenopathy, supple and no meningeal signs Resp: COMMON NORMALS: normal respiratory effort and clear to auscultation bilaterally AUSCULTATION: clear to auscultation bilaterally Cardio: COMMON NORMALS: regular rate and regular rhythm RATE: regular rate RHYTHM: regular rhythm GI: COMMON NORMALS: Normal to inspection, nondistended, normoactive bowel sounds present, Soft to palpation, No hepatosplenomegaly present and no masses INSPECTION: Yes normal to inspection AUSCULTATION: Yes normoactive bowel sounds PALPATION: Yes Soft to palpation, Yes Tenderness to palpation present (GI) (mild upper abdomen), No Guarding due to palpation present (GI), No Rigid due to palpation and Yes No hepatosplenomegaly present : COMMON NORMALS: Yes no CVA tenderness BLADDER/KIDNEY EXAM: Yes no CVA tenderness Back/Pelvis: COMMON NORMALS: no CVA tenderness and thoracic and lumbar spine normal to inspection Extremity: COMMON NORMALS: normal to inspection GENERAL: Yes normal exam except as noted Neuro: CHAMP COMA SCALE: document GCS findings [place] coma scale eye opening: Spontaneous [place] coma scale verbal response: Orientated Champ coma scale motor response: Obey commands Champ coma scale total score: 15 COMMON NORMALS: patient oriented x3, moves all extremities, no focal motor deficits and no sensory deficits noted SENSORIUM/ORIENTATION: Yes alert, Yes oriented to person, Yes oriented to place and Yes oriented to time MENINGEAL SIGNS: Yes no meningeal signs Skin: COMMON NORMALS: no rashes or lesions noted GENERAL SKIN EXAM: no rashes or lesions noted Course Vital Signs: Vital signs: Vital Signs Temperature 97.9 F 02/11/23 08:50 Pulse Rate 104 H 02/11/23 08:50 Respiratory Rate 18 02/11/23 09:40 Blood Pressure 115/93 02/11/23 08:50 Pulse Oximetry 90 02/11/23 09:40 Oxygen Delivery Me thod Room Air 02/11/23 09:40 MDM - Alcohol Medical Decision Making CIWA score puts him in mild withdrawal. He was given fluids, Zofran, and Ativan here and is sleeping comfortably in no acute distress. At this time patient is stable for discharge. We will go ahead and place him on Librium over the next 4 days. Recommend he contact his rehabilitation facility on his anticipated admission date. Strict return ED precautions given. Lab Data 02/11/23 09:05 02/11/23 09:05 Laboratory Results WBC 12.1 10^3/uL (4.0-10.0) H 02/11/23 09:05 RBC 5.17 10^6/uL (4.1-5.3) 02/11/23 09:05 Hgb 16.0 g/dL (11.7-16.6) 02/11/23 09:05 Hct 46.2 % (42.0-52.0) 02/11/23 09:05 MCV 89.4 fl (80-94) 02/11/23 09:05 MCH 30.9 pg (28.0-34.0) 02/11/23 09:05 MCHC 34.6 g/dL (30.0-36.0) 02/11/23 09:05 RDW 12.7 % (12.1-15.1) 02/11/23 09:05 Plt Count 267 10^3/cmm (130-400) 02/11/23 09:05 MPV 11.3 fL (7.4-10.4) H 02/11/23 09:05 Neut % (Auto) 76.9 % 02/11/23 09:05 Lymph % (Auto) 12.2 % 02/11/23 09:05 [place] % (Auto) 7.7 % 02/11/23 09:05 Eos % (Auto) 2.3 % 02/11/23 09:05 Baso % (Auto) 0.6 % 02/11/23 09:05 Neut # (Auto) 9.27 10^3/uL (1.8-7.7) H 02/11/23 09:05 Lymph # (Auto) 1.5 10^3/uL (0.8-4.8) 02/11/23 09:05 [place] # (Auto) 0.9 10^3/uL (0.2-0.9) 02/11/23 09:05 Eos # (Auto) 0.3 10^3/uL (0.0-0.8) 02/11/23 09:05 Baso # (Auto) 0.1 10^3/uL (0.0-0.1) 02/11/23 09:05 Nucleated RBC % (auto) 0 % 02/11/23 09:05 Nucleated RBCs # 0.0 /100WBC 02/11/23 09:05 Sodium 140 mmol/L (136-145) 02/11/23 09:05 Potassium 3.4 mmol/L (3.5-5.1) L 02/11/23 09:05 Chloride 99 mmol/L (98-107) 02/11/23 09:05 Carbon Dioxide 25 mmol/L (22-29) 02/11/23 09:05 Anion Gap 19.4 (5-19) H 02/11/23 09:05 BUN 9 mg/dL (6-20) 02/11/23 09:05 Creatinine 0.8 mg/dL (0.7-1.2) 02/11/23 09:05 GFR Calculation 104.1 mL/min (90-130) 02/11/23 09:05 Glucose 166 mg/dL (65-115) H 02/11/23 09:05 Calculated Osmolality 292 mOsm/kg (285-295) 02/11/23 09:05 Calcium 7.9 mg/dL (8.5-10.5) L 02/11/23 09:05 Total Bilirubin 1.0 mg/dL (0.15-1.2) 02/11/23 09:05 AST 105 U/L (0-40) H 02/11/23 09:05 ALT 168 U/L (0-41) H 02/11/23 09:05 Alkaline Phosphatase 96 U/L (40-130) 02/11/23 09:05 Total Protein 7.9 g/dL (6.6-8.7) 02/11/23 09:05 Albumin 4.3 g/dL (3.5-5.2) 02/11/23 09:05 Globulin 3.6 g/dL (1.3-4.6) 02/11/23 09:05 Lipase 18 U/L (13-60) 02/11/23 09:05 Urine Color Dark yellow (Yellow) 02/11/23 09:10 Urine Appearance Cloudy (CLEAR) A 02/11/23 09:10 Urine pH 5 (5-7) 02/11/23 09:10 Ur Specific [place] 1.020 (1.005-1.030) 02/11/23 09:10 Urine Protein 1+ (Negative) H 02/11/23 09:10 Urine Glucose (UA) Norm (Normal) 02/11/23 09:10 Urine Ketones Negative (Negative) 02/11/23 09:10 Urine Blood Neg (Negative) 02/11/23 09:10 Urine Nitrate Negative (Negative) 02/11/23 09:10 Urine Bilirubin 1+ (Negative) H 02/11/23 09:10 Urine Urobilinogen 4 mg/dL (Negative) H 02/11/23 09:10 Ur Leukocyte Esterase Negative (Negative) 02/11/23 09:10 Urine RBC Rare /hpf (0-2) 02/11/23 09:10 Urine WBC Rare /hpf (0-5) 02/11/23 09:10 Ur Squamous Epith Cells Rare /hpf (0-5) 02/11/23 09:10 Amorphous Sediment 2+ /hpf 02/11/23 09:10 Urine Bacteria 4+ /hpf (NONE) H 02/11/23 09:10 Discharge Plan Discharge Patient Disposition: Home Clinical Impression: Chronic alcohol abuse Alcohol withdrawal Qualifiers: Complication of substance-induced condition: uncomplicated Qualified Code(s): F10.930 - Alcohol use, unspecified with withdrawal, uncomplicated Condition: Stable Prescriptions: New chlordiazepoxide HCl 25 mg capsule See Rx Instructions .Route .COMPLEX Qty: 27 0RF Rx Instructions: Take 4 tabs q 6 hours on day 1. Take 2 tabs q 8 hours on day 2. Take 2 tabs q 12 hours on day 3. Take one tab daily on day 4. No Action (DME) Right Lower Extremity Prosthesis See Rx Instructions .Route .MEDSUPPLY Qty: 1 0RF Rx Instructions: Please evaluate and treat for Right BKA and issue prosthesis. baclofen 10 mg tablet 10 mg PO BID PRN (Reason: Muscle Spasm) thiamine mononitrate (vit B1) [Vitamin B-1 (mononitrate)] 100 mg Tablet 100 mg PO DAILY 30 Days Qty: 30 1RF venlafaxine 37.5 mg capsule,extended release 24hr 112.5 mg PO BEDTIME quetiapine 150 mg tablet extended release 24 hr 150 mg PO BEDTIME Discharge Orders: Discharge ED (Routine); Ordered 02/11/23 Ordered By: Nora Saenz Referrals: Timo Hicks DO [Primary Care Provider] - Patient Instructions: Abuse of Alcohol (DC), Alcohol Withdrawal (DC) Activity Restrictions/Additional Instructions: As we discussed you may begin prescription medication today. As we discussed please contact friends or family for support over the next 1 to 4 days to help you maintain sobriety. Contact the [facility] facility as soon as possible about your admission date. May return to the emergency department for worsening withdrawal symptoms such as severe anxiety, agitation, hallucinations, diffuse sweating, palpitations/heart racing, high blood pressure, severe headache, or any other concerns you may have. Coding Level of Care Code ED Boring Machine Operator Vertical for Chg Fwd Documented by User: Clyde Schuler DO 02/11/23 12:23 HPI - Alcohol General: Chief Complaint: Alcohol Stated Complaint: n/v Time Seen by Provider: 02/11/23 08:48 PFSH ED PFSH: Medical History Alcohol abuse Psychiatric care Surgical History Hx of BKA Family History Mother Diabetes Cancer Social History Smoking and tobacco status: current every day smoker cigarettes Packs smoked per day: 0.5 Second hand smoke exposure: No Smoking risk assessment/counseling performed?: No Alcohol intake: former Desire information about alcohol rehabilitation?: No Counseling given: No Substance/Drug Use: current Desire information about substance/drug rehabilitation?: No Counseling given: No Adopted: No Caregiver/support person: No Lives independently: Yes Housing: House service: No Current occupational status: unemployed Pets and animals: No Do you think of yourself as: Straight/Heterosexual Current gender identity: Male Physical Exam Neuro: CHAMP COMA SCALE: document GCS findings [place] coma scale total score: 15 Course Vital Signs: Vital signs: Vital Signs Temperature 97.9 F 02/11/23 08:50 Pulse Rate 104 H 02/11/23 08:50 Respiratory Rate 18 02/11/23 09:40 Blood Pressure 115/93 02/11/23 08:50 Pulse Oximetry 90 02/11/23 09:40 Oxygen Delivery Me thod Room Air 02/11/23 09:40 MDM - Alcohol Medical Decision Making CIWA score puts him in mild withdrawal. He was given fluids, Zofran, and Ativan here and is sleeping comfortably in no acute distress. At this time patient is stable for discharge. We will go ahead and place him on Librium over the next 4 days. Recommend he contact his rehabilitation facility on his anticipated admission date. Strict return ED precautions given. Chart reviewed and patient discussed with midlevel. Agree with assessment and plan. Lab Data 02/11/23 09:05 02/11/23 09:05 Laboratory Results WBC 12.1 10^3/uL (4.0-10.0) H 02/11/23 09:05 RBC 5.17 10^6/uL (4.1-5.3) 02/11/23 09:05 Hgb 16.0 g/dL (11.7-16.6) 02/11/23 09:05 Hct 46.2 % (42.0-52.0) 02/11/23 09:05 MCV 89.4 fl (80-94) 02/11/23 09:05 MCH 30.9 pg (28.0-34.0) 02/11/23 09:05 MCHC 34.6 g/dL (30.0-36.0) 02/11/23 09:05 RDW 12.7 % (12.1-15.1) 02/11/23 09:05 Plt Count 267 10^3/cmm (130-400) 02/11/23 09:05 MPV 11.3 fL (7.4-10.4) H 02/11/23 09:05 Neut % (Auto) 76.9 % 02/11/23 09:05 Lymph % (Auto) 12.2 % 02/11/23 09:05 [place] % (Auto) 7.7 % 02/11/23 09:05 Eos % (Auto) 2.3 % 02/11/23 09:05 Baso % (Auto) 0.6 % 02/11/23 09:05 Neut # (Auto) 9.27 10^3/uL (1.8-7.7) H 02/11/23 09:05 Lymph # (Auto) 1.5 10^3/uL (0.8-4.8) 02/11/23 09:05 [place] # (Auto) 0.9 10^3/uL (0.2-0.9) 02/11/23 09:05 Eos # (Auto) 0.3 10^3/uL (0.0-0.8) 02/11/23 09:05 Baso # (Auto) 0.1 10^3/uL (0.0-0.1) 02/11/23 09:05 Nucleated RBC % (auto) 0 % 02/11/23 09:05 Nucleated RBCs # 0.0 /100WBC 02/11/23 09:05 Sodium 140 mmol/L (136-145) 02/11/23 09:05 Potassium 3.4 mmol/L (3.5-5.1) L 02/11/23 09:05 Chloride 99 mmol/L (98-107) 02/11/23 09:05 Carbon Dioxide 25 mmol/L (22-29) 02/11/23 09:05 Anion Gap 19.4 (5-19) H 02/11/23 09:05 BUN 9 mg/dL (6-20) 02/11/23 09:05 Creatinine 0.8 mg/dL (0.7-1.2) 02/11/23 09:05 GFR Calculation 104.1 mL/min (90-130) 02/11/23 09:05 Glucose 166 mg/dL (65-115) H 02/11/23 09:05 Calculated Osmolality 292 mOsm/kg (285-295) 02/11/23 09:05 Calcium 7.9 mg/dL (8.5-10.5) L 02/11/23 09:05 Total Bilirubin 1.0 mg/dL (0.15-1.2) 02/11/23 09:05 AST 105 U/L (0-40) H 02/11/23 09:05 ALT 168 U/L (0-41) H 02/11/23 09:05 Alkaline Phosphatase 96 U/L (40-130) 02/11/23 09:05 Total Protein 7.9 g/dL (6.6-8.7) 02/11/23 09:05 Albumin 4.3 g/dL (3.5-5.2) 02/11/23 09:05 Globulin 3.6 g/dL (1.3-4.6) 02/11/23 09:05 Lipase 18 U/L (13-60) 02/11/23 09:05 Urine Color Dark yellow (Yellow) 02/11/23 09:10 Urine Appearance Cloudy (CLEAR) A 02/11/23 09:10 Urine pH 5 (5-7) 02/11/23 09:10 Ur Specific [place] 1.020 (1.005-1.030) 02/11/23 09:10 Urine Protein 1+ (Negative) H 02/11/23 09:10 Urine Glucose (UA) Norm (Normal) 02/11/23 09:10 Urine Ketones Negative (Negative) 02/11/23 09:10 Urine Blood Neg (Negative) 02/11/23 09:10 Urine Nitrate Negative (Negative) 02/11/23 09:10 Urine Bilirubin 1+ (Negative) H 02/11/23 09:10 Urine Urobilinogen 4 mg/dL (Negative) H 02/11/23 09:10 Ur Leukocyte Esterase Negative (Negative) 02/11/23 09:10 Urine RBC Rare /hpf (0-2) 02/11/23 09:10 Urine WBC Rare /hpf (0-5) 02/11/23 09:10 Ur Squamous Epith Cells Rare /hpf (0-5) 02/11/23 09:10 Amorphous Sediment 2+ /hpf 02/11/23 09:10 Urine Bacteria 4+ /hpf (NONE) H 02/11/23 09:10 Discharge Plan Discharge Patient Disposition: Home Clinical Impression: Chronic alcohol abuse Alcohol withdrawal Qualifiers: Complication of substance-induced condition: uncomplicated Qualified Code(s): F10.930 - Alcohol use, unspecified with withdrawal, uncomplicated Condition: Stable Prescriptions: New chlordiazepoxide HCl 25 mg capsule See Rx Instructions .Route .COMPLEX Qty: 27 0RF Rx Instructions: Take 4 tabs q 6 hours on day 1. Take 2 tabs q 8 hours on day 2. Take 2 tabs q 12 hours on day 3. Take one tab daily on day 4. No Action (DME) Right Lower Extremity Prosthesis See Rx Instructions .Route .MEDSUPPLY Qty: 1 0RF Rx Instructions: Please evaluate and treat for Right BKA and issue prosthesis. baclofen 10 mg tablet 10 mg PO BID PRN (Reason: Muscle Spasm) thiamine mononitrate (vit B1) [Vitamin B-1 (mononitrate)] 100 mg Tablet 100 mg PO DAILY 30 Days Qty: 30 1RF venlafaxine 37.5 mg capsule,extended release 24hr 112.5 mg PO BEDTIME quetiapine 150 mg tablet extended release 24 hr 150 mg PO BEDTIME Discharge Orders: Discharge ED (Routine); Ordered 02/11/23 Ordered By: Nora Saenz Referrals: Timo Hicks DO [Primary Care Provider] - Patient Instructions: Abuse of Alcohol (DC), Alcohol Withdrawal (DC) Activity Restrictions/Additional Instructions: As we discussed you may begin prescription medication today. As we discussed please contact friends or family for support over the next 1 to 4 days to help you maintain sobriety. Contact the [facility] as soon as possible about your admission date. May return to the emergency department for worsening withdrawal symptoms such as severe anxiety, agitation, hallucinations, diffuse sweating, palpitations/heart racing, high blood pressure, severe headache, or any other concerns you may have. Coding Level of Care Code ED Boring Machine Operator Vertical for Wendy Bang
--- NOTE | 2023-02-11 09:06 | PC.PHAR ---
pt states he takes care of his own medications-pt states not taken quetiapine er 150mg hs,venlafaxine er 37.5mg take 3 caps daily and vit b-1 100mg daily for 3 weeks states the medication was messing with him-notes are made in the pharmacy comments
[2023-02-11 09:15] LABS: Basophils # 0.1 10^3/uL (0.0-0.1); Basophils % 0.6 %; Eosinophils # 0.3 10^3/uL (0.0-0.8); Eosinophils % 2.3 %; Hematocrit 46.2 % (42.0-52.0); Lymphocytes # 1.5 10^3/uL (0.8-4.8); Lymphocytes % 12.2 %; Mean Corpuscular HGB Conc 34.6 g/dL (30.0-36.0); Mean Corpuscular Hemoglobin 30.9 pg (28.0-34.0); Mean Corpuscular Volume 89.4 fl (80-94); Mean Platelet Volume 11.3 fL (7.4-10.4); Monocytes # 0.9 10^3/uL (0.2-0.9); Monocytes % 7.7 %; Neutrophils # 9.27 10^3/uL (1.8-7.7); Neutrophils % 76.9 %; Nucleated Red Blood Cells % 0 %; Platelet Count 267 10^3/cmm (130-400); Red Blood Count 5.17 10^6/uL (4.1-5.3); Red Cell Distribution Width 12.7 % (12.1-15.1); White Blood Count 12.1 10^3/uL (4.0-10.0)
[2023-02-11] MEDS: LORazepam 2 mg/mL INJ 1 mL IVP (09:19)
[2023-02-11] MEDS: ondansetron 2 mg/ML SDV 2 mL 4 MG IVP (09:19)
[2023-02-11] MEDS: sodium chloride 0.9% 1,000 ML 999 ML IV (09:19)
[2023-02-11 09:29] LABS: Alanine Aminotransferase 168 U/L (0-41); Albumin Level 4.3 g/dL (3.5-5.2); Alkaline Phosphatase 96 U/L (40-130); Anion Gap 19.4 (5-19); Aspartate Amino Transferase 105 U/L (0-40); Blood Urea Nitrogen 9 mg/dL (6-20); Calcium 7.9 mg/dL (8.5-10.5); Carbon Dioxide 25 mmol/L (22-29); Chloride 99 mmol/L (98-107); Globulin 3.6 g/dL (1.3-4.6); Glomerular Filtration Rate 104.1 mL/min (90-130); Glucose 166 mg/dL (65-115); Lipase 18 U/L (13-60); Osmolality Calculated 292 mOsm/kg (285-295); Potassium 3.4 mmol/L (3.5-5.1); Sodium 140 mmol/L (136-145); Total Protein 7.9 g/dL (6.6-8.7)
[2023-02-11 09:40] VITALS: RESP 18; O2SAT 90
[2023-02-11 09:42] LABS: Add Urine Microscopic? YES; Bilirubin Urine 1+ (Negative); Blood Urine Neg (Negative); Glucose Urine UA Norm (Normal); Ketones Urine Negative (Negative); Leukocyte Esterase Urine Negative (Negative); Nitrate Urine Negative (Negative); Protein Urine 1+ (Negative); Urine Appearance Cloudy (CLEAR); Urine Color Dark Yellow (Yellow); Urobilinogen Urine 4 mg/dL (Negative); pH Urine 5 (5-7)
[2023-02-11 09:45] LABS: Bacteria Urine 4+ /hpf; RBC Urine RARE /hpf (0-2); Squamous Epithelial Cell Urine RARE /hpf (0-5); WBC Urine RARE /hpf (0-5)
[2023-02-11 09:46] LABS: Amorphous Sediment Urine 2+ /hpf
== END 2023-02-11 10:25 | disposition home or self-care (01) ==
PROVIDERS: Emergency Provider Physician Assistant; PCP Family Medicine
DX: F10.139 Alcohol abuse with withdrawal, unspecified (principal); F17.210 Nicotine dependence, cigarettes, uncomplicated
CPT/HCPCS: 80053; 81001; 83690; 85025; 96361; 96374; 96375; 99284; J2060; J2405; J7030

== ENCOUNTER 2023-02-12 14:10 | Inpatient (IN) | payer MEDICARE, MEDICAID, SELFPAY ==
[2023-02-12 14:19] VITALS: BP 117/76; PULSE 97; RESP 16; TEMP 36.9; O2SAT 94
--- NOTE | 2023-02-12 14:45 | ED_ITS ---
Documented by User: EDELMIRA Aguilar 02/12/23 16:52 HPI - Overdose General: Chief Complaint: Overdose Stated Complaint: SI Time Seen by Provider: 02/12/23 14:19 Source: patient Mode of arrival: ambulatory Limitations: no limitations History of Present Illness: Patient is a 48-year-old male who presents to ED today with a complaint of suicidal ideations and suicide attempt. Patient was seen by myself yesterday for mild symptoms of alcohol withdrawal. He did not require medical admission and was sent home with a prescription for Librium (25mg tabs) to help with withdrawal symptoms. He told me he had already contacted an alcohol rehabilitation facility in [place] and had already been accepted. He seemed motivated to quit drinking at that time. He states when he got home he took 4 of the Librium tablets like they were prescribed. He states 4 hours later he took another 4 tablets. He states this morning he took additional 2 tablets. At 10:00 this morning he took remainder of bottle (17 tabs) in a suicide attempt. complaint: intentional overdose Onset (ago): hour(s) Time: 10:00 Intent: suicide attempt How Overdose Was Discovered: called 911 Context: Intentional Overdose: drug/ETOH problems Associated symptoms: depression Treatments Prior to Arrival: none Review of Systems Const: Denies: fever(s) or chills Card: Denies: chest pain, palpitations, lightheadedness or syncope Resp: Denies: dyspnea GI: Denies: abdominal pain, nausea, vomiting or diarrhea Skin/Breast: Denies: rash Neuro: Denies: headache(s) Psych: Reports: anxiety, depression and suicidal ideation; Denies: visual hallucinations, auditory hallucinations or homicidal ideation [facility] ED PFSH: Medical History (Updated 02/19/23 @ 06:25 by Vinay Mendez MD) Alcohol abuse Depression Hepatitis C infection Psychiatric care 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 Surgical History Hx of BKA Family History Mother Diabetes Cancer Social History Smoking and tobacco status: current every day smoker cigarettes Packs smoked per day: 0.5 Second hand smoke exposure: No Smoking risk assessment/counseling performed?: No Alcohol intake: former Desire information about alcohol rehabilitation?: No Counseling given: No Substance/Drug Use: current Desire information about substance/drug rehabilitation?: No Counseling given: No Adopted: No Caregiver/support person: No Lives independently: Yes Housing: House service: No Current occupational status: unemployed Pets and animals: No Do you think of yourself as: Straight/Heterosexual Current gender identity: Male Physical Exam Const: COMMON NORMALS: no acute distress, patient oriented x3, alert and well nourished GENERAL APPEARANCE: cooperative ORIENTATION/CONSCIOUSNESS: Yes awake, Yes oriented to person, Yes oriented to place and Yes oriented to time OTHER: slightly drowsy-he is able to answer all questions appropriately; seems slightly confused and irrational at times; requests ativan and trazodone and various other medications Resp: COMMON NORMALS: normal respiratory effort and clear to auscultation bilaterally AUSCULTATION: clear to auscultation bilaterally Cardio: COMMON NORMALS: regular rate and regular rhythm RATE: regular rate RHYTHM: regular rhythm Neuro: CHAMP COMA SCALE: document GCS findings [place] coma scale eye opening: Spontaneous [place] coma scale verbal response: Orientated [place] coma scale motor response: Obey commands Champ coma scale total score: 15 COMMON NORMALS: patient oriented x3, CN's II-XII intact bilaterally, moves all extremities, no focal motor deficits, no sensory deficits noted and gait normal SENSORIUM/ORIENTATION: Yes alert, Yes oriented to person, Yes oriented to place and Yes oriented to time Psych: COMMON NORMALS: Normal thought process present, cooperative, normal affect, speech normal, denies hallucinations and denies homicidal ideation APPEARANCE: Yes grossly normal ATTITUDE: Yes calm ACTIVITY/MOTOR BEHAVIOR: Yes appropriate eye contact, No psychomotor agitation and Yes psychomotor slowing SPEECH: Yes normal speech MOOD & AFFECT: Yes depressed mood THOUGHT PROCESS: Normal thought process present ATTENTION/CONCENTRATION: Yes attention grossly intact and Yes concentration grossly intact MEMORY/COGNITION: Yes memory grossly intact and Yes cognition grossly intact INSIGHT: Fair insight present (Psych) JUDGEMENT: Fair judgement present (Psych) Course Consultations: Consultation #1: Poison Control-stated peak time of drug was 30 min-4 hours so should be over this by now but recommended continued monitoring in case time of ingestion was off Consultation #2: Dr. Mendez-recommends medical admission in setting of 425mg Librium on board and anticipated alcohol withdraw symptoms Consultation #3: Dr. Barr-accepts admission Vital Signs: Vital signs: Vital Signs Temperature 97.7 F 02/19/23 07:43 Pulse Rate 98 02/19/23 08:00 Respiratory Rate 16 02/19/23 08:00 Blood Pressure 96/76 02/19/23 07:43 Pulse Oximetry 97 02/19/23 08:00 Oxygen Delivery Me thod Room Air 02/19/23 08:00 MDM - Overdose Medical Decision Making Patient is a 48-year-old male here for an attempted suicide attempt with overdose on Librium. He reportedly took 17 (25mg) Librium tablets at 10 AM today. Due to half-life of this drug being anywhere from 5 to 30 hours and in the setting of a patient with chronic alcohol abuse most likely to experience alcohol withdrawal symptoms soon psychiatry has recommended medical admission. He is on a 96 hour hold so will go to ICU. Dr. Barr accepting. Spoke to Dr. Pearce who agrees with plan for patient. Lab Data 02/13/23 02:18 02/13/23 02:18 Laboratory Results WBC 10.3 10^3/uL (4.0-10.0) H 02/12/23 15:07 RBC 4.83 10^6/uL (4.1-5.3) 02/12/23 15:07 Hgb 15.3 g/dL (11.7-16.6) 02/12/23 15:07 Hct 43.9 % (42.0-52.0) 02/12/23 15:07 MCV 90.9 fl (80-94) 02/12/23 15:07 MCH 31.7 pg (28.0-34.0) 02/12/23 15:07 MCHC 34.9 g/dL (30.0-36.0) 02/12/23 15:07 RDW 12.8 % (12.1-15.1) 02/12/23 15:07 Plt Count 198 10^3/cmm (130-400) 02/12/23 15:07 MPV 11.4 fL (7.4-10.4) H 02/12/23 15:07 Neut % (Auto) 63.2 % 02/12/23 15:07 Lymph % (Auto) 19.6 % 02/12/23 15:07 [place] % (Auto) 6.8 % 02/12/23 15:07 Eos % (Auto) 9.4 % 02/12/23 15:07 Baso % (Auto) 0.6 % 02/12/23 15:07 Neut # (Auto) 6.52 10^3/uL (1.8-7.7) 02/12/23 15:07 Lymph # (Auto) 2.0 10^3/uL (0.8-4.8) 02/12/23 15:07 [place] # (Auto) 0.7 10^3/uL (0.2-0.9) 02/12/23 15:07 Eos # (Auto) 1.0 10^3/uL (0.0-0.8) H 02/12/23 15:07 Baso # (Auto) 0.1 10^3/uL (0.0-0.1) 02/12/23 15:07 Nucleated RBC % (auto) 0 % 02/12/23 15:07 Nucleated RBCs # 0.0 /100WBC 02/12/23 15:07 Sodium 138 mmol/L (136-145) 02/12/23 15:07 Potassium 3.6 mmol/L (3.5-5.1) 02/12/23 15:07 Chloride 103 mmol/L (98-107) 02/12/23 15:07 Carbon Dioxide 24 mmol/L (22-29) 02/12/23 15:07 Anion Gap 14.6 (5-19) 02/12/23 15:07 BUN 9 mg/dL (6-20) 02/12/23 15:07 Creatinine 0.8 mg/dL (0.7-1.2) 02/12/23 15:07 GFR Calculation 104.1 mL/min (90-130) 02/12/23 15:07 Glucose 95 mg/dL (65-115) 02/12/23 15:07 Calculated Osmolality 284 mOsm/kg (285-295) L 02/12/23 15:07 Calcium 8.3 mg/dL (8.5-10.5) L 02/12/23 15:07 Total Bilirubin 1.2 mg/dL (0.15-1.2) 02/12/23 15:07 AST 66 U/L (0-40) H 02/12/23 15:07 ALT 113 U/L (0-41) H 02/12/23 15:07 Alkaline Phosphatase 88 U/L (40-130) 02/12/23 15:07 Total Protein 7.1 g/dL (6.6-8.7) 02/12/23 15:07 Albumin 3.9 g/dL (3.5-5.2) 02/12/23 15:07 Globulin 3.2 g/dL (1.3-4.6) 02/12/23 15:07 Salicylates < 0.3 mg/dL (3-10) L 02/12/23 15:07 Urine Opiates Screen Negative ng/mL (Negative) 02/12/23 15:08 Acetaminophen < 5.0 ug/mL (10-30) L 02/12/23 15:07 Ur Barbiturates Screen Negative ng/mL (Negative) 02/12/23 15:08 Ur Phencyclidine Scrn Negative ng/mL (Negative) 02/12/23 15:08 Ur Amphetamines Screen Negative ng/mL (Negative) 02/12/23 15:08 U Benzodiazepines Scrn Positive ng/mL (Negative) H 02/12/23 15:08 Urine Cocaine Screen Negative ng/mL (Negative) 02/12/23 15:08 U Marijuana (THC) Screen Positive ng/mL (Negative) H 02/12/23 15:08 Ethyl Alcohol 91 mg/dL (0-10) H 02/12/23 15:07 Discharge Plan Discharge Patient Disposition: Admitted As Inpatient Admit Provider: Jennifer Barr Clinical Impression: Suicidal ideation, Chronic alcohol abuse Intentional drug overdose Qualifiers: Encounter type: initial encounter Qualified Code(s): T50.902A - Poisoning by unspecified drugs, medicaments and biological substances, intentional self-harm, initial encounter Condition: Stable Discharge Diet: Regular Discharge Activity: Resume usual activity Coding Level of Care Code ED Plant Technical Specialist for Margaretg Merritt Documented by User: Armin Pearce MD 02/24/23 06:55 HPI - Overdose General: Chief Complaint: Overdose Stated Complaint: SI Time Seen by Provider: 02/12/23 14:19 PFSH ED PFSH: Medical History (Updated 02/19/23 @ 06:25 by Vinay Mendez MD) Alcohol abuse Depression Hepatitis C infection Psychiatric care 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 Surgical History Hx of BKA Family History Mother Diabetes Cancer Social History Smoking and tobacco status: current every day smoker cigarettes Packs smoked per day: 0.5 Second hand smoke exposure: No Smoking risk assessment/counseling performed?: No Alcohol intake: former Desire information about alcohol rehabilitation?: No Counseling given: No Substance/Drug Use: current Desire information about substance/drug rehabilitation?: No Counseling given: No Adopted: No Caregiver/support person: No Lives independently: Yes Housing: House service: No Current occupational status: unemployed Pets and animals: No Do you think of yourself as: Straight/Heterosexual Current gender identity: Male Physical Exam Neuro: CHAMP COMA SCALE: document GCS findings [place] coma scale total score: 15 Course Vital Signs: Vital signs: Vital Signs Temperature 97.7 F 02/19/23 07:43 Pulse Rate 98 02/19/23 08:00 Respiratory Rate 16 02/19/23 08:00 Blood Pressure 96/76 02/19/23 07:43 Pulse Oximetry 97 02/19/23 08:00 Oxygen Delivery Me thod Room Air 02/19/23 08:00 MDM - Overdose Medical Decision Making Patient is a 48-year-old male here for an attempted suicide attempt with overdose on Librium. He reportedly took 17 (25mg) Librium tablets at 10 AM today. Due to half-life of this drug being anywhere from 5 to 30 hours and in the setting of a patient with chronic alcohol abuse most likely to experience alcohol withdrawal symptoms soon psychiatry has recommended medical admission. He is on a 96 hour hold so will go to ICU. Dr. Barr accepting. Spoke to Dr. Pearce who agrees with plan for patient. I discussed this case with EDELMIRA Aguilar. Armin Pearce MD Emergency Medicine Lab Data 02/13/23 02:18 02/13/23 02:18 Laboratory Results WBC 10.3 10^3/uL (4.0-10.0) H 02/12/23 15:07 RBC 4.83 10^6/uL (4.1-5.3) 02/12/23 15:07 Hgb 15.3 g/dL (11.7-16.6) 02/12/23 15:07 Hct 43.9 % (42.0-52.0) 02/12/23 15:07 MCV 90.9 fl (80-94) 02/12/23 15:07 MCH 31.7 pg (28.0-34.0) 02/12/23 15:07 MCHC 34.9 g/dL (30.0-36.0) 02/12/23 15:07 RDW 12.8 % (12.1-15.1) 02/12/23 15:07 Plt Count 198 10^3/cmm (130-400) 02/12/23 15:07 MPV 11.4 fL (7.4-10.4) H 02/12/23 15:07 Neut % (Auto) 63.2 % 02/12/23 15:07 Lymph % (Auto) 19.6 % 02/12/23 15:07 [place] % (Auto) 6.8 % 02/12/23 15:07 Eos % (Auto) 9.4 % 02/12/23 15:07 Baso % (Auto) 0.6 % 02/12/23 15:07 Neut # (Auto) 6.52 10^3/uL (1.8-7.7) 02/12/23 15:07 Lymph # (Auto) 2.0 10^3/uL (0.8-4.8) 02/12/23 15:07 [place] # (Auto) 0.7 10^3/uL (0.2-0.9) 02/12/23 15:07 Eos # (Auto) 1.0 10^3/uL (0.0-0.8) H 02/12/23 15:07 Baso # (Auto) 0.1 10^3/uL (0.0-0.1) 02/12/23 15:07 Nucleated RBC % (auto) 0 % 02/12/23 15:07 Nucleated RBCs # 0.0 /100WBC 02/12/23 15:07 Sodium 138 mmol/L (136-145) 02/12/23 15:07 Potassium 3.6 mmol/L (3.5-5.1) 02/12/23 15:07 Chloride 103 mmol/L (98-107) 02/12/23 15:07 Carbon Dioxide 24 mmol/L (22-29) 02/12/23 15:07 Anion Gap 14.6 (5-19) 02/12/23 15:07 BUN 9 mg/dL (6-20) 02/12/23 15:07 Creatinine 0.8 mg/dL (0.7-1.2) 02/12/23 15:07 GFR Calculation 104.1 mL/min (90-130) 02/12/23 15:07 Glucose 95 mg/dL (65-115) 02/12/23 15:07 Calculated Osmolality 284 mOsm/kg (285-295) L 02/12/23 15:07 Calcium 8.3 mg/dL (8.5-10.5) L 02/12/23 15:07 Total Bilirubin 1.2 mg/dL (0.15-1.2) 02/12/23 15:07 AST 66 U/L (0-40) H 02/12/23 15:07 ALT 113 U/L (0-41) H 02/12/23 15:07 Alkaline Phosphatase 88 U/L (40-130) 02/12/23 15:07 Total Protein 7.1 g/dL (6.6-8.7) 02/12/23 15:07 Albumin 3.9 g/dL (3.5-5.2) 02/12/23 15:07 Globulin 3.2 g/dL (1.3-4.6) 02/12/23 15:07 Salicylates < 0.3 mg/dL (3-10) L 02/12/23 15:07 Urine Opiates Screen Negative ng/mL (Negative) 02/12/23 15:08 Acetaminophen < 5.0 ug/mL (10-30) L 02/12/23 15:07 Ur Barbiturates Screen Negative ng/mL (Negative) 02/12/23 15:08 Ur Phencyclidine Scrn Negative ng/mL (Negative) 02/12/23 15:08 Ur Amphetamines Screen Negative ng/mL (Negative) 02/12/23 15:08 U Benzodiazepines Scrn Positive ng/mL (Negative) H 02/12/23 15:08 Urine Cocaine Screen Negative ng/mL (Negative) 02/12/23 15:08 U Marijuana (THC) Screen Positive ng/mL (Negative) H 02/12/23 15:08 Ethyl Alcohol 91 mg/dL (0-10) H 02/12/23 15:07 Discharge Plan Discharge Patient Disposition: Admitted As Inpatient Admit Provider: Jennifer Barr Clinical Impression: Suicidal ideation, Chronic alcohol abuse Intentional drug overdose Qualifiers: Encounter type: initial encounter Qualified Code(s): T50.902A - Poisoning by unspecified drugs, medicaments and biological substances, intentional self-harm, initial encounter Condition: Stable Discharge Diet: Regular Discharge Activity: Resume usual activity Coding Level of Care Code ED Plant Technical Specialist for Wendy Bang
--- NOTE | 2023-02-12 14:56 | ECG_ITS ---
[facility] Test Date: 2023-02-12 Pat Name: Audi Suarez II Department: Room: Gender: Male Internet Salesperson: : 1975 Requested By: Nora Saenz Order Number: [id number] Lexy MD: Rodrick Chambers M.D. Measurements Intervals [place] Rate: 84 P: 41 WV: 155 QRS: -7 QRSD: 82 T: 12 QT: 358 QTc: 425 Interpretive Statements SINUS RHYTHM MODERATE VOLTAGE CRITERIA FOR LVH, CONSIDER NORMAL VARIANT [MEETS CRITERIA IN ONE OF: R(aVL), S(V1), R(V5), R(V5/V6)+S(V1)] Compared to ECG 12/26/2022 09:24:32 No significant changes Electronically Signed On 02-12-2023 22:44:23 CDT by Rodrick Chambers M.D. [email or web address]
[2023-02-12 15:15] VITALS: PULSE 100; RESP 18; O2SAT 98
[2023-02-12 15:15] LABS: Basophils # 0.1 10^3/uL (0.0-0.1); Basophils % 0.6 %; Eosinophils % 9.4 %; Hematocrit 43.9 % (42.0-52.0); Hemoglobin 15.3 g/dL (11.7-16.6); Lymphocytes % 19.6 %; Mean Corpuscular HGB Conc 34.9 g/dL (30.0-36.0); Mean Corpuscular Hemoglobin 31.7 pg (28.0-34.0); Mean Corpuscular Volume 90.9 fl (80-94); Mean Platelet Volume 11.4 fL (7.4-10.4); Monocytes # 0.7 10^3/uL (0.2-0.9); Monocytes % 6.8 %; Neutrophils # 6.52 10^3/uL (1.8-7.7); Neutrophils % 63.2 %; Nucleated Red Blood Cells % 0 %; Platelet Count 198 10^3/cmm (130-400); Red Blood Count 4.83 10^6/uL (4.1-5.3); Red Cell Distribution Width 12.8 % (12.1-15.1); White Blood Count 10.3 10^3/uL (4.0-10.0)
[2023-02-12 15:33] LABS: Alanine Aminotransferase 113 U/L (0-41); Albumin Level 3.9 g/dL (3.5-5.2); Alcohol Level 91 mg/dL (0-10); Alkaline Phosphatase 88 U/L (40-130); Anion Gap 14.6 (5-19); Aspartate Amino Transferase 66 U/L (0-40); Blood Urea Nitrogen 9 mg/dL (6-20); Calcium 8.3 mg/dL (8.5-10.5); Carbon Dioxide 24 mmol/L (22-29); Chloride 103 mmol/L (98-107); Globulin 3.2 g/dL (1.3-4.6); Glomerular Filtration Rate 104.1 mL/min (90-130); Glucose 95 mg/dL (65-115); Osmolality Calculated 284 mOsm/kg (285-295); Potassium 3.6 mmol/L (3.5-5.1); Sodium 138 mmol/L (136-145); Total Bilirubin 1.2 mg/dL (0.15-1.2); Total Protein 7.1 g/dL (6.6-8.7)
[2023-02-12 15:35] LABS: Acetaminophen < 5.0 ug/mL (10-30); Salicylate < 0.3 mg/dL (3-10)
[2023-02-12 15:41] VITALS: PULSE 99; RESP 18; O2SAT 98
[2023-02-12 15:48] LABS: Amphetamines Screen Urine Negative (Negative); Barbiturates Screen Urine Negative (Negative); Benzodiazepines Screen Urine Positive (Negative); Cocaine Screen Urine Negative (Negative); Opiate Screen Urine Negative (Negative); PCP Screen Urine Negative (Negative); THC Screen Urine Positive (Negative)
--- NOTE | 2023-02-12 16:00 | PC.NURSE ---
PATIENT CONTINUES TO REMOVE CARDIAC LEADS. PATIENT STATES THAT HE WANTS TO LEAVE. PATIENT REDIRECTED MULTIPLE TIMES TO LAY DOWN AND REST. PATIENT STATES THAT HE WOULD LIKE ATIVAN. PATIENT EDUCATED THAT HE CANNOT HAVE IT DUE TO DRUG/DRUG INTERACTIONS. PATIENT STATES THAT HE JUST WANTS TO BE IN NPU WHERE HE CANNOT LEAVE. NURSE EDUCATED PATIENT THAT HE WILL NOT BE ALLOWED TO LEAVE. PATIENT REDIRECTED TO LAY DOWN. PATIENT ASKED FOR SMOKE BREAK. NURSE OFFERED NICOTINE PATCH. PATIENT AGREEABLE. PATIENT IS CURRENTLY STILL IN HOME CLOTHES, BUT HAS BEEN PATTED DOWN. PATIENT HAS NOTHING ON PERSON. PATIENT ROOM CLEANED OF HARMFUL ITEMS AND SITTER PRESENT.
[2023-02-12] MEDS: nicotine 21 mg Patch 1 PATCH TRANSDERMA (16:19)
--- NOTE | 2023-02-12 16:20 | PC.NURSE ---
PATIENT CHANGED INTO GREEN SCRUBS. PROSTHESIS AND SHOES REMOVED. PATIENT GIVEN NICOTINE PATCH. PATIENT RESTING IN BED.
[2023-02-12 17:09] VITALS: BP 109/52; PULSE 81; RESP 15; O2SAT 91
--- NOTE | 2023-02-12 17:23 | PM.HP ---
Providers/Chief Complaint Admitting Physician: Jennifer Barr MD Primary Care Provider: Timo Hicks DO Chief Complaint: SI History of Present Illness Audi Suarez II is a 48 year old male with history of alcohol abuse, presented yesterday for alcohol drawl symptoms he was discharged home on Librium 25 mg, today patient became suicidal took 17 tablets of 25 mg of Librium Poison control recommended monitoring for next few hours, patient is not showing any hemodynamic instability. Psych will be consulted he has been put on 96-hour hold he has neuropsych consult as well from Dr. Mendez. Review of Systems Eyes: Denies: change in vision ENMT: Denies: throat pain Card: Denies: chest pain Resp: Denies: dyspnea GI: Denies: abdominal pain : Denies: flank pain Musc: Denies: neck pain Skin/Breast: Denies: rash Neuro: Reports: headache(s) Psych: Reports: anxiety and depression Endo: Denies: polyuria Medications/Allergies Home Medications Medication Instructions Recorded Confirmed Last Taken Type baclofen 10 mg tablet 10 mg PO BID PRN Muscle Spasm 12/26/22 02/12/23 Unknown History Right Lower Extremity Prosthesis #1 ea 01/20/23 02/12/23 Unknown Rx chlordiazepoxide HCl 25 mg capsule See Rx Instructions .Route 02/11/23 02/12/23 02/12/23 Rx .COMPLEX #27 caps quetiapine 150 mg tablet,extended 150 mg PO BEDTIME 02/11/23 02/12/23 3 Weeks Ago History release 24 hr ~01/21/23 not taken for 3 week Allergies Allergy/AdvReac Type Severity Reaction Status Date / Time No Known Allergies Allergy Verified 02/12/23 14:28 PFSH Acute PFSH: Medical History (Updated 02/12/23 @ 17:27 by Jennifer Barr MD) Alcohol abuse Depression Hepatitis C infection Psychiatric care 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 Surgical History Hx of BKA Family History Mother Diabetes Cancer Social History Smoking and tobacco status: current every day smoker cigarettes Packs smoked per day: 0.5 Second hand smoke exposure: No Smoking risk assessment/counseling performed?: No Alcohol intake: former Desire information about alcohol rehabilitation?: No Counseling given: No Substance/Drug Use: current Desire information about substance/drug rehabilitation?: No Counseling given: No Adopted: No Caregiver/support person: No Lives independently: Yes Housing: House service: No Current occupational status: unemployed Pets and animals: No Do you think of yourself as: Straight/Heterosexual Current gender identity: Male Vitals/I&O/Wt Last Vital Signs Temp 98.4 F 02/12/23 14:19 Pulse 81 02/12/23 17:09 Resp 15 02/12/23 17:09 BP 109/52 02/12/23 17:09 Pulse Ox 91 02/12/23 17:09 O2 Del Method Room Air 02/12/23 17:09 Weight last 48 hrs Weight 99.79 kg Physical Exam Narrative: S1, S2 normal. More than stated age No abdominal discomfort No focal neuro exam Currently doing well on room air Hemodynamically stable GCS 15 Distended abdomen without any discomfort No significant skin ulcers Data 02/13/23 02:18 02/13/23 02:18 A&P Assessment and plan (1) Chronic alcohol abuse: (2) Alcohol withdrawal: Qualifiers: Complication of substance-induced condition: uncomplicated Qualified Code(s): F10.930 - Alcohol use, unspecified with withdrawal, uncomplicated (3) Intentional drug overdose: Qualifiers: Encounter type: initial encounter Qualified Code(s): T50.902A - Poisoning by unspecified drugs, medicaments and biological substances, intentional self-harm, initial encounter (4) Alcohol use disorder, severe, dependence: (5) Suicidal ideation: Plan Suicidal ideation Alcohol abuse [facility] protocol 96-hour hold Neuropsych consult Patient took 450 mg of Librium I would use phenobarbital in case of any worsening of withdrawal overnight Conservative management Poison control contacted from the ER Full code Attestations Medical Necessity Statement*: More than 2 midnights anticipated Diagnoses Chronic alcohol abuse F10.10 Alcohol withdrawal F10.930 Complication of substance-induced condition: uncomplicated Intentional drug overdose T50.902A Encounter type: initial encounter Alcohol use disorder, severe, dependence F10.20 Suicidal ideation R45.85
[2023-02-12] MEDS: enoxaparin 40 mg/0.4 mL Syringe SUBCUT (18:24)
[2023-02-12 20:00] VITALS: PULSE 76
[2023-02-12] MEDS: ondansetron 2 mg/ML SDV 2 mL 4 MG IVP (20:21)
[2023-02-12] MEDS: metoclopramide 5 mg/mL SDV 2 mL 10 MG IVP (22:55)
[2023-02-13] VITALS (11 sets, daily range): BP systolic 115–123; BP diastolic 58–87; PULSE 61–88; RESP 13–18; TEMP 36.4–36.6; O2SAT 90–99; BMI 33.4
[2023-02-13] MEDS: PHENobarbital 130 mg/mL SDV 1 mL 60 MG IV ×2 (00:33→08:52)
[2023-02-13 03:20] LABS: Basophils # 0.1 10^3/uL (0.0-0.1); Basophils % 0.6 %; Eosinophils # 1.1 10^3/uL (0.0-0.8); Eosinophils % 11.8 %; Hematocrit 44.2 % (42.0-52.0); Hemoglobin 14.9 g/dL (11.7-16.6); Lymphocytes # 2.1 10^3/uL (0.8-4.8); Lymphocytes % 21.8 %; Mean Corpuscular HGB Conc 33.7 g/dL (30.0-36.0); Mean Corpuscular Hemoglobin 30.8 pg (28.0-34.0); Mean Corpuscular Volume 91.3 fl (80-94); Mean Platelet Volume 12.4 fL (7.4-10.4); Monocytes # 0.6 10^3/uL (0.2-0.9); Monocytes % 6.6 %; Neutrophils # 5.67 10^3/uL (1.8-7.7); Neutrophils % 58.8 %; Nucleated Red Blood Cells % 0 %; Platelet Count 180 10^3/cmm (130-400); Red Blood Count 4.84 10^6/uL (4.1-5.3); Red Cell Distribution Width 12.6 % (12.1-15.1); White Blood Count 9.7 10^3/uL (4.0-10.0)
--- NOTE | 2023-02-13 03:24 | PC.NURSE ---
Patient rested well through the night. Provided a sandwhich and sprite early in shift, subsequently experienced complaints of Nausea. Once CIWA assessment resulted in a score of 12 which was treated with Phenobarb. Nausea was treated with zofran and followed with a 1x dose of reglan. Patient has remained AOx4 and cooperative with staff.
[2023-02-13 03:43] LABS: Anion Gap 14.1 (5-19); Blood Urea Nitrogen 11 mg/dL (6-20); Calcium 8.7 mg/dL (8.5-10.5); Carbon Dioxide 26 mmol/L (22-29); Chloride 106 mmol/L (98-107); Glomerular Filtration Rate 104.1 mL/min (90-130); Glucose 95 mg/dL (65-115); Magnesium 2.2 mg/dL (1.7-2.3); Osmolality Calculated 293 mOsm/kg (285-295); Potassium 4.1 mmol/L (3.5-5.1); Sodium 142 mmol/L (136-145)
--- NOTE | 2023-02-13 08:49 | P.PN_ITS ---
Subjective Subjective: Patient has not shown significant signs of alcohol withdrawal Has not received phenobarbital which was requested on as needed basis Patient was asking for his breakfast tray this morning No active chest pain, shortness of breath, Vitals/I&O/Wt Last Vital Signs Temp 98.4 F 02/12/23 14:19 Pulse 68 02/13/23 08:05 Resp 15 02/12/23 17:09 BP 109/52 02/12/23 17:09 Pulse Ox 91 02/12/23 17:09 O2 Del Method Room Air 02/12/23 17:26 02/12/23 02/13/23 02/13/23 22:59 06:59 14:59 Intake Total 720 / 720 Balance 720 / 720 Weight last 48 hrs Weight 99.79 kg Physical Exam Narrative: Patient looks euvolemic Currently on room air no audible stridor or wheezing Abdomen is soft Nonfocal neuro exam NIH 0 GCS is 15 No active distress S1, S2 Data 02/13/23 02:18 02/13/23 02:18 A&P Assessment and plan (1) Chronic alcohol abuse: (2) Alcohol withdrawal: Qualifiers: Complication of substance-induced condition: uncomplicated Qualified Co de(s): F10.930 - Alcohol use, unspecified with withdrawal, uncomplicated (3) Intentional drug overdose: Qualifiers: Encounter type: initial encounter Qualified Code(s): T50.902A - Poisoning by unspecified drugs, medicaments and biological substances, intentional self-harm, initial encounter (4) Suicidal ideation: Plan Drug overdose with librium No active signs of alcohol withdrawal For CIWA less than 12 we can use p.o. form of phenobarbital 100 mg every 3-4 hours on as-needed basis I do believe patient can be transferred to neuropsychiatric unit today Hemodynamic stable instability, QTc prolongation not noted Continue thiamine and folic acid p.o. regimen I will touch base with Dr. Mendez today Currently on 96-hour hold with one-to-one supervision in the ICU Cardiac diet today Attestations Medical Necessity Statement*: Transfer to neuropsychiatric unit today Diagnoses Chronic alcohol abuse F10.10 Alcohol withdrawal F10.930 Complication of substance-induced condition: uncomplicated Intentional drug overdose T50.902A Encounter type: initial encounter Suicidal ideation R45.853
[2023-02-13] MEDS: thiamine 100 mg Tablet PO (08:52)
[2023-02-13] MEDS: multivitamin therapeutic Tablet 1 TAB PO (08:52)
[2023-02-13] MEDS: folic acid 1 mg Tablet PO (08:52)
--- NOTE | 2023-02-13 11:10 | PC.NURSE ---
Report called to Ramandeep. No further questions. Awaiting room to be cleaned, will call me when ready. Patient and belongings to be taken to room 151-1
--- NOTE | 2023-02-13 12:39 | PC.NURSE ---
Patient and belongings taken to NPU at 1230 via wheel chair accompanied by 2 staff members. Room assignment to be made by NPU staff due to patient requesting a different room upon arrival.
[2023-02-13] MEDS: LORazepam 2 mg Tablet PO ×2 (13:39→17:51)
[2023-02-13] MEDS: nicotine 2 mg Gum BUCCAL (14:02)
[2023-02-13] MEDS: hyDROXYzine 25 mg Capsule 50 MG PO (15:09)
--- NOTE | 2023-02-13 15:10 | PC.NURSE ---
Patient reporting anxiety. Administered 50mg Vistaril PO to patient. Will continue to monitor.
[2023-02-13] MEDS: OLANZapine 5 mg ODT PO (15:46)
--- NOTE | 2023-02-13 15:47 | PC.NURSE ---
patient not getting relief from anxiety after taking Vistaril. Administered Zyprexa ODT to patient and discussed coping mechanisms.
--- NOTE | 2023-02-13 17:52 | PC.NURSE ---
Patient scored 10 on CIWA. Administered 2mg Ativan per protocol
[2023-02-13] MEDS: quetiapine XR (24HR) 50 mg Tablet 150 MG PO (20:30)
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
[2023-02-14 06:00] VITALS: RESP 17
[2023-02-14 08:00] VITALS: PULSE 96; RESP 16; O2SAT 98
[2023-02-14] MEDS: multivitamin therapeutic Tablet 1 TAB PO (08:53)
[2023-02-14] MEDS: thiamine 100 mg Tablet PO (08:53)
[2023-02-14] MEDS: folic acid 1 mg Tablet PO (08:53)
[2023-02-14] MEDS: OLANZapine 5 mg ODT PO ×2 (13:05→21:21)
[2023-02-14] MEDS: baclofen 10 mg Tablet PO (13:54)
[2023-02-14 14:00] VITALS: BP 125/87; PULSE 98; RESP 18; TEMP 36.8; O2SAT 92
[2023-02-14] MEDS: LORazepam 2 mg Tablet PO (14:51)
--- NOTE | 2023-02-14 14:52 | PC.NURSE ---
PATIENT SCORED 13 ON CIWA. ADMINISTERED 2MG ATIVAN. WILL CONTINUE TO MONITOR.
[2023-02-14] MEDS: nicotine 4 mg lozenge MUCOUS MEM ×2 (16:10→18:02)
[2023-02-14] MEDS: ibuprofen 600 mg Tablet PO (17:03)
[2023-02-14] MEDS: hyDROXYzine 25 mg Capsule 50 MG PO (17:05)
[2023-02-14 20:00] VITALS: PULSE 85; RESP 16; O2SAT 94
[2023-02-14] MEDS: quetiapine XR (24HR) 50 mg Tablet 150 MG PO (21:19)
[2023-02-14 22:00] VITALS: RESP 18
[2023-02-14] MEDS: trazodone 50 mg Tablet PO (22:19)
--- NOTE | 2023-02-14 22:41 | PM.PN ---
Subjective Subjective: Patient evaluated in NPU. He reports he is doing OK. Denies fevers, chills, nausea, emesis, or pain. Medications: Reviewed: Yes Vitals/I&O/Wt Last Vital Signs Temp 98.3 F 02/14/23 14:00 Pulse 85 02/14/23 20:00 Resp 18 02/14/23 22:00 BP 125/87 02/14/23 14:00 Pulse Ox 94 02/14/23 20:00 O2 Del Method Room Air 02/14/23 20:00 02/14/23 02/14/23 02/14/23 06:59 14:59 22:59 Intake Total 480 / 480 240 / 720 Balance 480 / 480 240 / 720 Weight last 48 hrs Weight 99.79 kg Physical Exam Narrative: General: Patient is awake and alert. Head: Normocephalic. Atraumatic. EOM intact. Neck: No JVD. Cardiovascular: RRR. No gallops. No murmurs. No peripheral edema. Lungs: Clear to auscultation, no use of accessory muscles, no crackles or wheezes. Skin: No jaundice. No rashes. Abdomen: Normal bowel sounds, abdomen soft and nontender. Extremities: No cyanosis or clubbing. Musculoskeletal: Rt BKA. Neurological: Moves all 4 extremities. No myoclonus. Data 02/13/23 02:18 02/13/23 02:18 A&P Assessment and plan (1) Intentional drug overdose: Potential effects unlikely given duration of time that has passed Qualifiers: Encounter type: initial encounter Qualified Code(s): T50.902A - Poisoning by unspecified drugs, medicaments and biological substances, intentional self-harm, initial encounter (2) Chronic alcohol abuse: Would benefit from cessation CM/SW for resources (3) Alcohol withdrawal: No evidence of withdrawal on exam Qualifiers: Complication of substance-induced condition: uncomplicated Qualified Code(s): F10.930 - Alcohol use, unspecified with withdrawal, uncomplicated (4) Suicidal ideation: Management per primary Plan Patient denies any medical symptoms. No evidence of significant ETOH withdrawal He has surpassed the window of concern for overdose complications for which IM consulted Medicine will follow peripherally, and if no issue sign off. Please don't hesitate to consult again. Attestations Medical Necessity Statement*: Per primary service. Coding Level of Care Code Acute Code for g Fwd Diagnoses Intentional drug overdose T50.902A Encounter type: initial encounter Chronic alcohol abuse F10.10 Alcohol withdrawal F10.930 Complication of substance-induced condition: uncomplicated Suicidal ideation R45.858
[2023-02-15] MEDS: trazodone 50 mg Tablet PO (00:22)
[2023-02-15] MEDS: nicotine 4 mg lozenge MUCOUS MEM ×6 (00:37→18:15)
[2023-02-15] MEDS: hyDROXYzine 25 mg Capsule 50 MG PO ×2 (00:37→17:00)
[2023-02-15 06:00] VITALS: RESP 18
[2023-02-15] MEDS: thiamine 100 mg Tablet PO (08:44)
[2023-02-15] MEDS: multivitamin therapeutic Tablet 1 TAB PO (08:44)
[2023-02-15] MEDS: folic acid 1 mg Tablet PO (08:44)
--- NOTE | 2023-02-15 08:44 | P.NPUPN_ITS ---
Subjective NPU Subjective: Patient presents today reporting that his legs giving him some trouble increase in the prosthetic. He reports otherwise he is feeling a little better and he began talking more optimistically about the rehab in [place] or near there. He denies any issues with his medications and reports that his detox and withdrawal are going fine. Mental Status Exam MSE Comments: This is a overweight versus obese white male in hospital scrubs with limited grooming and eye contact. Significant tattooing on exposed skin. Below-knee amputation of right leg. No abnormal movements except for psychomotor retardation. Cooperative with exam in mild to moderate distress. Speech was decreased rate and volume. Mood described as a little better, affect subdued. Thought process organized. Thought content: Patient denies homicidal or suicidal ideation, there were no delusions reported or noted, he denied any auditory or visual hallucinations. Attention and concentration were intact and memory was mostly reliable but none were formally tested. He is alert and oriented x3. Insight, judgment and impulse control is impaired. Vitals/I&O/Wt Last Vital Signs Temp 98.3 F 02/14/23 14:00 Pulse 85 02/14/23 20:00 Resp 18 02/15/23 06:00 BP 125/87 02/14/23 14:00 Pulse Ox 94 02/14/23 20:00 O2 Del Method Room Air 02/14/23 20:00 02/14/23 02/15/23 02/15/23 22:59 06:59 14:59 Intake Total 240 / 720 Balance 240 / 720 Weight last 48 hrs Weight 99.79 kg Data NPU 02/13/23 02:18 02/13/23 02:18 A&P Assessment and plan (1) Depression: (2) Suicidal ideation: (3) Alcohol use disorder, severe, dependence: (4) Intentional drug overdose: Qualifiers: Encounter type: initial encounter Qualified Code(s): T50.902A - Pois oning by unspecified drugs, medicaments and biological substances, intentional self-harm, initial encounter Plan This is a 48-year-old male who has a long history of alcohol addiction, suicidality and depression who reports a recent worsening of his symptoms and his second hospitalization since December, continuing to have relapse and alcohol use disorder presenting with a reported suicide attempt on his ambulatory detox medications now questioning whether or not he is going to go to rehab after detox. Plan: 1. Continue current medication. 2. Continue every 15 minute checks for safety. 3. Encourage individual, group and milieu therapies. 4. Encourage sober living treatment after discharge at the highest level of care to which he is willing to commit. 5. We will monitor for safety for himself in the community prior to discharge given the 96-hour hold and overdose/suicide attempt. Involuntary Hold Information 96 Hour Hold: 96 Hour Involuntary Admission: Yes 96 Hour Hold Ending Date: 02/19/23 96 Hour Hold Ending Time: 16:20 Attestations NPU Medical Necessity Statement*: Inpatient hospitalization is medically necessary and the clinically appropriate intervention at this time. We will initiate medications and make changes as indicated. Likely length of stay 2-4 days. Coding Level of Care Code Acute Code for [facility] Fwd Diagnoses Depression F32.A Suicidal ideation R45.851 Alcohol use disorder, severe, dependence F10.20 Intentional drug overdose T50.902A Encounter type: initial encounter
[2023-02-15] MEDS: OLANZapine 5 mg ODT PO ×3 (09:14→18:15)
[2023-02-15] MEDS: LORazepam 2 mg Tablet PO ×2 (11:00→19:42)
[2023-02-15] MEDS: baclofen 10 mg Tablet PO ×2 (13:16→21:21)
[2023-02-15 14:00] VITALS: BP 121/84; PULSE 105; RESP 20; TEMP 36.6; O2SAT 97
[2023-02-15 15:27] VITALS: PULSE 105; RESP 20; O2SAT 97
--- NOTE | 2023-02-15 16:39 | PC.NURSE ---
PT IS UP AT THE NURSES STATION STATING TO STAFF THAT I WANT TO SIGN OUT. PT WAS EDUCATED THAT HE IS ON A [address] PT [address] AGUILAR SAID THAT HE WOULD COME SEE ME TODAY. PT WAS EDUCATED THAT THE DR DOES COME VISIT ALL THE PT EVERY DAY JUST NOT AT SPECIFIC TIMES. PT WAS THEN UPSET THAT HE DID NOT SCORE HIGH ENOUGH ON CIWA TO REQUIRE ATIVAN. THIS RN EDUCATED ON THE REASON WHY THE ATIVAN WAS ON A PROTOCOL. PT THEN STATED WELL IF I GET OUT OF HERE THEN I CAN GET MY ATIVAN ON THE STREET HECK I CAN GET WHATEVER I WANT ON THE STREET PERCOCET ANYTHING. NORMALLY I JUST COME HER SOBER UP THEN LEAVE AND THATS WHAT I WANT.
[2023-02-15] MEDS: ibuprofen 600 mg Tablet PO (17:00)
--- NOTE | 2023-02-15 18:04 | PC.NURSE ---
PT APPROACHED NURSE ABOUT PAIN IN R BELOW THE KNEE AMPUTATION. PT SHOWED THIS NURSE THE IRRITATED SPOT. ON THE BOTTOM OF THE LEG IS SOME REDNESS AND SOME BRUISING NOTED THAT IS ABOUT THE SIZE OF A QUARTER. THIS RN NOTIFIED DR. MEYERS, WHO THEN PRESCRIBED VOLTAREN CREAM TO THE AFFECTED AREA PRN TID.
[2023-02-15] MEDS: diclofenac 1% Topical Gel 100 gm 1 APPLIC TOPICAL (18:24)
[2023-02-15 20:00] VITALS: PULSE 104; RESP 16; O2SAT 95
[2023-02-15] MEDS: quetiapine XR (24HR) 50 mg Tablet 150 MG PO (21:21)
[2023-02-15 22:00] VITALS: BP 115/80; PULSE 104; RESP 16; TEMP 36.6; O2SAT 95
[2023-02-16 05:58] VITALS: RESP 18
[2023-02-16 06:00] VITALS: BMI 33.4
--- NOTE | 2023-02-16 07:15 | W.PM.NPUPNS ---
Subjective NPU Subjective: Patient presented today walking with his prosthetic without any signs of difficulty. He reports that he worked with Dr. Lee to get a resolution with a cream that he is putting on the stump. His withdrawal is coming to an end and he is reporting feeling significantly better. Staff reports of him being in better spirits and much less irritability. We had a significant discussion about sober living treatment as he continues to have moments of ambivalence. He is fairly fixated on being at the top of the list to get into apartment in town and is using that as the reason for not going to treatment. We discussed that not being usually exclusive in him trying to make sure that he enters his apartment with a foundation of recovery. Mental Status Exam MSE Comments: This is a overweight versus obese white male in hospital scrubs with limited grooming and eye contact. Significant tattooing on exposed skin. Below-knee amputation of right leg. No abnormal movements except for psychomotor retardation. Cooperative with exam in mild distress. Speech was more normal rate and volume. Mood described as a little better, affect subdued. Thought process organized. Thought content: Patient denies homicidal or suicidal ideation, there were no delusions reported or noted, he denied any auditory or visual hallucinations. Attention and concentration were intact and memory was mostly reliable but none were formally tested. He is alert and oriented x3. Insight and judgment are limited and impulse control is impaired. Vitals/I&O/Wt Last Vital Signs Temp 97.8 F 02/15/23 22:00 Pulse 104 H 02/15/23 22:00 Resp 18 02/16/23 05:58 BP 115/80 02/15/23 22:00 Pulse Ox 95 02/15/23 22:00 O2 Del Method Room Air 02/15/23 22:00 Data NPU 02/13/23 02:18 02/13/23 02:18 Involuntary Hold Information 96 Hour Hold: 96 Hour Involuntary Admission: Yes 96 Hour Hold Ending Date: 02/19/23 96 Hour Hold Ending Time: 16:20 Attestations NPU Medical Necessity Statement*: Inpatient hospitalization is medically necessary and the clinically appropriate intervention at this time. We will initiate medications and make changes as indicated. Likely length of stay 1-3 days. Coding Level of Care Code Acute Code for [facility] Fwd Diagnoses
[2023-02-16] MEDS: folic acid 1 mg Tablet PO (08:38)
[2023-02-16] MEDS: multivitamin therapeutic Tablet 1 TAB PO (08:38)
[2023-02-16] MEDS: thiamine 100 mg Tablet PO (08:38)
[2023-02-16] MEDS: nicotine 4 mg lozenge MUCOUS MEM ×4 (11:06→17:50)
[2023-02-16] MEDS: hyDROXYzine 25 mg Capsule 50 MG PO ×2 (11:08→17:50)
--- NOTE | 2023-02-16 11:42 | PC.NURSE ---
pt found hugging a female patient in formerly [facility], same patient that he was informed that physical contact was not allowed in this facility with other patients yesterday. Verbal education administered to both patient on the unit policy.
--- NOTE | 2023-02-16 12:16 | PC.NURSE ---
patient came to window for Zyprexa, but did not appear overly agitated. Patient was given hydroxyzine and come back if he continues to have anxiety. Patient spoke to Dr Mendez and was doing well, then as soon as Dr turned around he asked for the Zyprexa again. Dr Mendez spoke to him about when we give this medication. He agreed that he didn't really need it but wanted to relax through hospital stay.
[2023-02-16] MEDS: diclofenac 1% Topical Gel 100 gm 1 APPLIC TOPICAL (13:20)
[2023-02-16 14:00] VITALS: BP 122/85; PULSE 110; RESP 16; TEMP 36.9; O2SAT 96
[2023-02-16] MEDS: ARIPiprazole 10 mg Tablet PO (14:15)
[2023-02-16] MEDS: OLANZapine 5 mg ODT PO ×2 (14:37→19:29)
--- NOTE | 2023-02-16 14:58 | PM.PN ---
Subjective Subjective: Patient evaluated in NPU. Reports wound on his BKA site. Denies drainage, fevers or chills. Reports hx of prior pressure wound there as well. Otherwise denies other new complaints. Medications: Reviewed: Yes Vitals/I&O/Wt Last Vital Signs Temp 98.4 F 02/16/23 14:00 Pulse 110 H 02/16/23 14:00 Resp 16 02/16/23 14:00 BP 122/85 02/16/23 14:00 Pulse Ox 96 02/16/23 14:00 O2 Del Method Room Air 02/15/23 22:00 Weight last 48 hrs Weight 99.79 kg Physical Exam Narrative: General: Patient is awake and alert. Head: Normocephalic. Atraumatic. EOM intact. Neck: No JVD. Cardiovascular: RRR. No gallops. No murmurs. No peripheral edema. Lungs: Clear to auscultation, no use of accessory muscles, no crackles or wheezes. Skin: No jaundice. No rashes. Abdomen: Normal bowel sounds, abdomen soft and nontender. Extremities: No cyanosis or clubbing. Musculoskeletal: Rt BKA. There is an abrasion with mild surrounding edema and erythema. No drainage. Neurological: Moves all 4 extremities. No myoclonus. Data 02/13/23 02:18 02/13/23 02:18 A&P Assessment and plan (1) Abrasion: Discussed offloading and rest to allow healing May use topical analgesics as needed (2) Intentional drug overdose: Qualifiers: Encounter type: initial encounter Qualified Code(s): T50.902A - Poisoning by unspecified drugs, medicaments and biological substances, intentional self-harm, initial encounter (3) Chronic alcohol abuse: Would benefit from cessation (4) Alcohol withdrawal: No evidence of withdrawal Qualifiers: Complication of substance-induced condition: uncomplicated Qualified Code(s): F10.930 - Alcohol use, unspecified with withdrawal, uncomplicated (5) Suicidal ideation: Management per primary Plan THank you for consultation. Will sign off. Please reconsult as needed. Attestations Medical Necessity Statement*: Per primary. Coding Level of Care Code Acute Code for [facility] Fwd Diagnoses Abrasion T14.8XXA Intentional drug overdose T50.902A Encounter type: initial encounter Chronic alcohol abuse F10.10 Alcohol withdrawal F10.930 Complication of substance-induced condition: uncomplicated Suicidal ideation R45.254
[2023-02-16 14:59] VITALS: PULSE 106; RESP 16; O2SAT 97
[2023-02-16] MEDS: baclofen 10 mg Tablet PO (15:01)
[2023-02-16 20:16] VITALS: BP 139/91; PULSE 108; RESP 18; TEMP 36.6; O2SAT 95
[2023-02-16] MEDS: quetiapine XR (24HR) 50 mg Tablet 150 MG PO (20:20)
[2023-02-17] MEDS: ondansetron 4 MG Tablet PO (04:34)
[2023-02-17 04:37] VITALS: BP 125/85; PULSE 86; RESP 20; O2SAT 98
[2023-02-17] MEDS: baclofen 10 mg Tablet PO ×2 (04:43→16:33)
[2023-02-17] MEDS: OLANZapine 5 mg ODT PO ×4 (04:44→23:09)
[2023-02-17] MEDS: fixodent 39 gm Tube 1 APPLIC DENTAL (05:35)
[2023-02-17] MEDS: nicotine 4 mg lozenge MUCOUS MEM ×2 (06:18→23:15)
[2023-02-17] MEDS: thiamine 100 mg Tablet PO (08:21)
[2023-02-17] MEDS: multivitamin therapeutic Tablet 1 TAB PO (08:21)
[2023-02-17] MEDS: folic acid 1 mg Tablet PO (08:21)
[2023-02-17] MEDS: ARIPiprazole 10 mg Tablet PO (08:22)
[2023-02-17] MEDS: nicotine 21 mg Patch 1 PATCH TRANSDERMA (08:45)
[2023-02-17] MEDS: hyDROXYzine 25 mg Capsule 50 MG PO ×3 (09:05→20:08)
--- NOTE | 2023-02-17 09:05 | PC.NURSE ---
PRN VISTARIL 50 MG GIVEN PO PER PT C/O STATED ANXIETY.
--- NOTE | 2023-02-17 11:20 | PC.NURSE ---
PRN ZYPREXA ZYDIS 5 MG GIVEN PO SUBLINGUAL PER PT C/O FURTHER ANXIETY/AGITATION
[2023-02-17 14:00] VITALS: BP 126/75; PULSE 110; RESP 18; TEMP 36.8; O2SAT 96
--- NOTE | 2023-02-17 15:07 | PC.NURSE ---
PRN VISTARIL 50 MG GIVEN PO PER PT C/O STATED ANXIETY. MED SEEKING FOR ANY AND ALL PRN MEDICATIONS
--- NOTE | 2023-02-17 15:29 | W.PM.NPUPNS ---
Subjective NPU Subjective: Patient presented today with several issues he wanted to discuss. We discussed Vivitrol and how he would about getting that, Zyprexa and the likelihood that he will be able to get that as a as needed but not Zyprexa Zydis as well as his depression and the risks, benefits and alternatives of initiating Wellbutrin XL 150 mg p.o. every morning and he understood and agreed to proceed as is documented in this note. We discussed her being discharged by Friday. Mental Status Exam MSE Comments: This is a overweight versus obese white male in hospital scrubs with adequate grooming and eye contact. Significant tattooing on exposed skin. Below-knee amputation of right leg. No abnormal movements. Cooperative with exam in mild distress. Speech was more normal rate and volume. Mood described as a little better, affect subdued. Thought process organized. Thought content: Patient denies homicidal or suicidal ideation, there were no delusions reported or noted, he denied any auditory or visual hallucinations. Attention and concentration were intact and memory was mostly reliable but none were formally tested. He is alert and oriented x3. Insight and judgment are limited and impulse control is improving. Vitals/I&O/Wt Last Vital Signs Temp 97.8 F 02/17/23 20:30 Pulse 114 H 02/17/23 20:30 Resp 18 02/17/23 20:30 BP 133/84 02/17/23 20:30 Pulse Ox 95 02/17/23 20:30 O2 Del Method Room Air 02/17/23 20:30 Weight last 48 hrs Weight 99.79 kg Data NPU 02/13/23 02:18 02/13/23 02:18 A&P Assessment and plan (1) Depression: (2) Suicidal ideation: (3) Alcohol use disorder, severe, dependence: (4) Intentional drug overdose: Qualifiers: Encounter type: initial encounter Qualified Code(s): T50.902A - Poisoning by unspecified drugs, medicaments and biological substances, intentional self-harm, initial encounter Plan This is a 48-year-old male who has a long history of alcohol addiction, suicidality and depression who reports a recent worsening of his symptoms and his second hospitalization since December, continuing to have relapse and alcohol use disorder presenting with a reported suicide attempt on his ambulatory detox medications now questioning whether or not he is going to go to rehab after detox. Plan: 1. Continue current medication. Start Wellbutrin XL 100 mg p.o. every morning. 2. Continue every 15 minute checks for safety. 3. Encourage individual, group and milieu therapies. 4. Encourage sober living treatment after discharge at the highest level of care to which he is willing to commit. 5. We will monitor for safety for himself in the community prior to discharge given the 96-hour hold and overdose/suicide attempt. Involuntary Hold Information 96 Hour Hold: 96 Hour Involuntary Admission: Yes 96 Hour Hold Ending Date: 02/19/23 96 Hour Hold Ending Time: 16:20 Attestations NPU Medical Necessity Statement*: Inpatient hospitalization is medically necessary and the clinically appropriate intervention at this time. We will initiate medications and make changes as indicated. Likely length of stay 1-2 days. Coding Level of Care Code Acute Code for [facility] Fwd Diagnoses Depression F32.A Suicidal ideation R45.851 Alcohol use disorder, severe, dependence F10.20 Intentional drug overdose T50.902A Encounter type: initial encounter
--- NOTE | 2023-02-17 16:34 | PC.NURSE ---
PRN ZYPREXA ZYDIS & BACLOFEN ZYPREXA ZYDIS 5 MG GIVEN PO PER PT REQUEST, PT SEEMS TO BE MED SEEKING, ASKING FOR ANY AND ALL PRN MEDICATIONS HE CAN HAVE. BACLOFEN 10 MG GIVEN PO PER PT C/O MUSCLE SPASMS
[2023-02-17] MEDS: quetiapine XR (24HR) 50 mg Tablet 150 MG PO (20:08)
[2023-02-17 20:30] VITALS: BP 133/84; PULSE 114; RESP 18; TEMP 36.6; O2SAT 95
[2023-02-18] MEDS: buPROPion XL (24 HR) 150 mg Tablet PO (08:22)
[2023-02-18] MEDS: nicotine 21 mg Patch 1 PATCH TRANSDERMA (08:22)
[2023-02-18] MEDS: thiamine 100 mg Tablet PO (08:23)
[2023-02-18] MEDS: ARIPiprazole 10 mg Tablet PO (08:23)
[2023-02-18] MEDS: multivitamin therapeutic Tablet 1 TAB PO (08:23)
[2023-02-18] MEDS: folic acid 1 mg Tablet PO (08:23)
[2023-02-18] MEDS: baclofen 10 mg Tablet PO (11:12)
--- NOTE | 2023-02-18 11:13 | PC.NURSE ---
PRN BACLOFEN 10 MG GIVEN PO PER PT C/O MUSCLE SPASMS
[2023-02-18 14:00] VITALS: BP 148/74; PULSE 78; RESP 18; TEMP 36.9; O2SAT 98
[2023-02-18] MEDS: diclofenac 1% Topical Gel 100 gm 1 APPLIC TOPICAL (15:15)
[2023-02-18] MEDS: nicotine 4 mg lozenge MUCOUS MEM ×2 (16:53→19:20)
--- NOTE | 2023-02-18 17:25 | P.NPUPN_ITS ---
Subjective NPU Subjective: Patient presents today as are going okay. He worked with the social work team to get into [facility] this Friday and has a safe environment to go to tomorrow. We discussed discharging him in the morning and making the arrangements for [facility] before he leaves. He denies any new concerns. Mental Status Exam MSE Comments: This is a overweight versus obese white male in hospital scrubs with adequate grooming and eye contact. Significant tattooing on exposed skin. Below-knee amputation of right leg. No abnormal movements. Cooperative with exam in no acute distress. Speech was more normal rate and volume. Mood described as better, affect subdued. Thought process organized. Thought content: Patient denies homicidal or suicidal ideation, there were no delusions reported or noted, he denied any auditory or visual hallucinations. Attention and concentration were intact and memory was mostly reliable but none were formally tested. He is alert and oriented x3. Insight and judgment are limited and impulse control is improving. Vitals/I&O/Wt Last Vital Signs Temp 97.8 F 02/17/23 20:30 Pulse 114 H 02/17/23 20:30 Resp 18 02/17/23 20:30 BP 133/84 02/17/23 20:30 Pulse Ox 95 02/17/23 20:30 O2 Del Method Room Air 02/17/23 20:30 Data NPU 02/13/23 02:18 02/13/23 02:18 A&P Assessment and plan (1) Depression: (2) Suicidal ideation: (3) Alcohol use disorder, severe, dependence: (4) Intentional drug overdose: Qualifiers: Encounter type: initial encounter Qualified Code(s): T50.902A - Poisoning by unspecified drugs, medicaments and biological substances, intentional self-harm, initial encounter Plan This is a 48-year-old male who has a long history of alcohol addiction, suici dality and depression who reports a recent worsening of his symptoms and his second hospitalization since December, continuing to have relapse and alcohol use disorder presenting with a reported suicide attempt on his ambulatory detox medications now questioning whether or not he is going to go to rehab after detox. Plan: 1. Continue current medication. Start Wellbutrin XL 150 mg p.o. every morning. 2. Continue every 15 minute checks for safety. 3. Encourage individual, group and milieu therapies. 4. Encourage sober living treatment after discharge at the highest level of care to which he is willing to commit. 5. We will monitor for safety for himself in the community prior to discharge given the 96-hour hold and overdose/suicide attempt. Involuntary Hold Information 96 Hour Hold: 96 Hour Involuntary Admission: Yes 96 Hour Hold Ending Date: 02/19/23 96 Hour Hold Ending Time: 16:20 Attestations NPU Medical Necessity Statement*: Inpatient hospitalization is medically necessary and the clinically appropriate intervention at this time. We will initiate medications and make changes as indicated. Discharge home in the morning. Coding Level of Care Code Acute Code for g Fwd Diagnoses Depression F32.A Suicidal ideation R45.851 Alcohol use disorder, severe, dependence F10.20 Intentional drug overdose T50.902A Encounter type: initial encounter
[2023-02-18 20:00] VITALS: PULSE 89; O2SAT 93
[2023-02-18] MEDS: hyDROXYzine 25 mg Capsule 50 MG PO (20:03)
[2023-02-18] MEDS: quetiapine XR (24HR) 50 mg Tablet 150 MG PO (20:03)
[2023-02-18] MEDS: nicotine 2 mg Gum BUCCAL (20:22)
[2023-02-18 22:00] VITALS: BP 112/72; PULSE 89; RESP 18; O2SAT 95
[2023-02-18] MEDS: trazodone 50 mg Tablet PO (23:02)
[2023-02-19] MEDS: nicotine 4 mg lozenge MUCOUS MEM ×3 (02:54→08:45)
[2023-02-19] MEDS: hyDROXYzine 25 mg Capsule 50 MG PO (03:22)
[2023-02-19 06:00] VITALS: BP 96/76; PULSE 85; RESP 18; TEMP 36.5; O2SAT 97
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
[2023-02-19 07:43] VITALS: BP 96/76; PULSE 85; RESP 18; TEMP 36.5; O2SAT 97
[2023-02-19] MEDS: ARIPiprazole 10 mg Tablet PO (07:46)
[2023-02-19] MEDS: OLANZapine 5 mg ODT PO (07:46)
[2023-02-19] MEDS: folic acid 1 mg Tablet PO (07:46)
[2023-02-19] MEDS: buPROPion XL (24 HR) 150 mg Tablet PO (07:46)
[2023-02-19] MEDS: thiamine 100 mg Tablet PO (07:46)
[2023-02-19] MEDS: multivitamin therapeutic Tablet 1 TAB PO (07:46)
[2023-02-19 08:00] VITALS: PULSE 98; RESP 16; O2SAT 97
--- NOTE | 2023-02-19 08:55 | DCPLANNER ---
IMM completed 02/19/23 @ 0853. Pt was provided a copy of rights and he stated he understood his rights.
== END 2023-02-19 10:20 | disposition home or self-care (01) | DRG 918 ==
LOC: ER 16:34 → ICU 17:06 → NP 02-13 12:35
PROVIDERS: Admitting Provider Internal Medicine; Emergency Provider Physician Assistant; PCP Family Medicine; Visit Provider Psychiatry & Neurology Psychiatry
DX: T42.4X2A Poisoning by benzodiazepines, intentional self-harm, initial encounter (principal); F10.239 Alcohol dependence with withdrawal, unspecified; R45.851 Suicidal ideations; F10.229 Alcohol dependence with intoxication, unspecified; Y90.4 Blood alcohol level of 80-99 mg/100 ml; F32.A Depression, unspecified; Z86.19 Personal history of other infectious and parasitic diseases; Z89.511 Acquired absence of right leg below knee; F17.210 Nicotine dependence, cigarettes, uncomplicated
CPT/HCPCS: 36415; 80048; 80053; 80306; 80307; 81001; 83690; 83735; 85025; 93005; 96361; 96372; 96374; 96375; 96376; 97150; 97165; 99238; 99284; 99285; J1650; J2060; J2405; J2560; J2765; J3411; J7030; Q0162

== ENCOUNTER 2023-03-03 09:09 | Outpatient (CLI) | payer MEDICARE, MEDICAID, SELFPAY ==
[2023-03-03 10:18] LABS: Basophils # 0.1 10^3/uL (0.0-0.1); Eosinophils # 0.9 10^3/uL (0.0-0.8); Eosinophils % 7.6 %; Hematocrit 46.1 % (42.0-52.0); Hemoglobin 15.5 g/dL (11.7-16.6); Lymphocytes # 2.2 10^3/uL (0.8-4.8); Lymphocytes % 19.8 %; Mean Corpuscular HGB Conc 33.6 g/dL (30.0-36.0); Mean Corpuscular Volume 92.2 fl (80-94); Mean Platelet Volume 11.8 fL (7.4-10.4); Monocytes % 8.5 %; Neutrophils # 6.97 10^3/uL (1.8-7.7); Neutrophils % 61.6 %; Nucleated Red Blood Cells % 0 %; Platelet Count 257 10^3/cmm (130-400); Red Cell Distribution Width 13.5 % (12.1-15.1); White Blood Count 11.3 10^3/uL (4.0-10.0)
[2023-03-03 10:36] LABS: INR 1.02 (0.8-1.2)
[2023-03-03 10:48] LABS: Alanine Aminotransferase 126 U/L (0-41); Albumin Level 4.1 g/dL (3.5-5.2); Alkaline Phosphatase 81 U/L (40-130); Aspartate Amino Transferase 62 U/L (0-40); Blood Urea Nitrogen 12 mg/dL (6-20); Calcium 8.2 mg/dL (8.5-10.5); Carbon Dioxide 24 mmol/L (22-29); Chloride 102 mmol/L (98-107); Ferritin 232 ng/mL (30-400); Globulin 3.5 g/dL (1.3-4.6); Glomerular Filtration Rate 104.1 mL/min (90-130); Glucose 86 mg/dL (65-115); Iron 121 ug/dL (59-158); Osmolality Calculated 277 mOsm/kg (285-295); Percent Saturation 33.5 % (20-50); Sodium 134 mmol/L (136-145); Total Bilirubin 0.5 mg/dL (0.15-1.2); Total Iron Binding Capacity 361 mcg/dl; Total Protein 7.6 g/dL (6.6-8.7); Unsaturated Iron Binding 240 ug/dL (112-347)
[2023-03-03 11:24] LABS: Hepatitis C Virus Antibody Reactive (Nonreactive)
[2023-03-03 11:32] LABS: Tumor Marker Alpha Fetoprotein 2.5 ng/mL (0-8.3)
[2023-03-03 11:34] LABS: HIV 1 & 2 Antibody Non-Reactive (Non-Reactiv); HIV 1 & 2 Antigen Non-Reactive (Non-Reactiv)
[2023-03-03 11:36] LABS: Hepatitis B Core AB, Total Non-Reactive (Nonreactive); Hepatitis B Surface Antigen Non-Reactive (Nonreactive)
[2023-03-03 11:39] LABS: Hepatitis B Surface AB < 3.5 (11.5-1000)
[2023-03-04 11:24] LABS: Alpha 1 Antitrypsin 116 mg/dL (83-199); Ceruloplasmin 27 mg/dL (18-36)
[2023-03-04 13:44] LABS: RPR w(Moniotor) w/REFL Titer NON-REACTIVE (NON-REACTIVE)
[2023-03-04 23:24] LABS: HEP C RNA Viral Load Quant 11400000 IU/mL (NOT DETECTED); HEP C RNA Viral Load Quant 7.06 Log IU/mL (NOT DETECTED)
[2023-03-05 18:09] LABS: Quantiferon Mitogen >10.00 IU/mL; Quantiferon Nil 0.01 IU/mL; Quantiferon Plus TB2 0.01 IU/mL; Quantiferon TB Gold NEGATIVE (NEGATIVE)
[2023-03-08 22:24] LABS: Hepatitis C Genotype RNA 1a
== END 2023-03-03 09:10 | disposition home or self-care (01) ==
PROVIDERS: PCP Family Medicine; Visit Provider Family Medicine
DX: B18.2 Chronic viral hepatitis C (principal); B19.20 Unspecified viral hepatitis C without hepatic coma; Z09 Encounter for follow-up examination after completed treatment for conditions other than malignant neoplasm
CPT/HCPCS: 36415; 80053; 82103; 82105; 82390; 82728; 83540; 83550; 84443; 85025; 85610; 86480; 86592; 86704; 86706; 86803; 87340; 87522; 87806; 87902

== ENCOUNTER 2023-03-07 08:08 | Outpatient (CLI) | payer MEDICARE, MEDICAID, SELFPAY ==
--- NOTE | 2023-03-07 08:17 | US_ITS ---
WS: [id number] RIGHT UPPER QUADRANT ULTRASOUND HISTORY: Chronic Hepatitis C infection COMPARISON: None available. Liver: 16.9 cm in length. Normal size liver and echogenicity. No bile duct dilatation or mass. Portal Vein: Normal hepatopetal flow with monophasic waveform. Gallbladder: Normally distended gallbladder with no stones or wall thickening. CBD: 0.3 cm Pancreas: Portions of the head and tail are obscured. The body is negative. Right kidney: 11.9 cm in length. Normal size and echogenicity. No hydronephrosis or mass. Aorta and IVC: Unremarkable abdominal aorta and IVC. No ascites. US/US abdomen limited [id number] IMPRESSION: Normal RIGHT upper quadrant ultrasound.
== END 2023-03-07 08:09 | disposition home or self-care (01) ==
PROVIDERS: PCP Family Medicine; Visit Provider Family Medicine
DX: B19.20 Unspecified viral hepatitis C without hepatic coma (principal)
CPT/HCPCS: 76705

== ENCOUNTER 2023-03-15 22:40 | Emergency (ER) | payer MEDICARE, MEDICAID, SELFPAY ==
[2023-03-15 22:40] VITALS: BP 149/91; PULSE 90; RESP 18; TEMP 36.8; O2SAT 97; BMI 34.9
[2023-03-15 23:33] LABS: Basophils # 0.1 10^3/uL (0.0-0.1); Eosinophils # 1.7 10^3/uL (0.0-0.8); Eosinophils % 13.7 %; Hematocrit 47.8 % (42.0-52.0); Hemoglobin 17.2 g/dL (11.7-16.6); Lymphocytes # 3.1 10^3/uL (0.8-4.8); Lymphocytes % 25.3 %; Mean Corpuscular Hemoglobin 32.7 pg (28.0-34.0); Mean Corpuscular Volume 90.9 fl (80-94); Mean Platelet Volume 13.1 fL (7.4-10.4); Monocytes # 0.8 10^3/uL (0.2-0.9); Monocytes % 6.9 %; Neutrophils # 6.43 10^3/uL (1.8-7.7); Neutrophils % 52.5 %; Nucleated Red Blood Cells % 0 %; Platelet Count 184 10^3/cmm (130-400); Red Blood Count 5.26 10^6/uL (4.1-5.3); Red Cell Distribution Width 13.2 % (12.1-15.1); White Blood Count 12.2 10^3/uL (4.0-10.0)
[2023-03-15] MEDS: sodium chloride 0.9% 1,000 ML 999 ML IV (23:37)
[2023-03-15] MEDS: ondansetron 2 mg/ML SDV 2 mL 4 MG IVP (23:37)
--- NOTE | 2023-03-15 23:40 | PC.NURSE ---
Pt removed blood pressure cuff and pulse oximeter and while doing this removed his IV, nurse placed new IV and requested urine sample, pt replied no thank you
[2023-03-15 23:41] LABS: Alanine Aminotransferase 83 U/L (0-41); Albumin Level 4.2 g/dL (3.5-5.2); Alkaline Phosphatase 108 U/L (40-130); Anion Gap 15.8 (5-19); Aspartate Amino Transferase 49 U/L (0-40); Blood Urea Nitrogen 10 mg/dL (6-20); Calcium 9.2 mg/dL (8.5-10.5); Carbon Dioxide 25 mmol/L (22-29); Chloride 103 mmol/L (98-107); Globulin 3.7 g/dL (1.3-4.6); Glomerular Filtration Rate 90.8 mL/min (90-130); Glucose 122 mg/dL (65-115); Lipase 18 U/L (13-60); Osmolality Calculated 290 mOsm/kg (285-295); Potassium 3.8 mmol/L (3.5-5.1); Sodium 140 mmol/L (136-145); Total Bilirubin 0.5 mg/dL (0.15-1.2); Total Protein 7.9 g/dL (6.6-8.7)
--- NOTE | 2023-03-16 05:44 | W.ED.NAVMDI ---
HPI - Nausea/Vomiting/Diarrhea General: Chief complaint: Nausea/Vomiting/Diarrhea Stated complaint: N/V Time Seen by Provider: 03/15/23 23:23 Source: patient History of Present Illness: 48-year-old male gentleman with a complaint of vomiting multiple times this evening, supposedly after taking naloxone he is not terribly cooperative with exam or questioning, so there is not much known. Evidently there is no fever. He is not in any pain. He is resting comfortably. MD elicited complaint: nausea and vomiting Onset (ago): hour(s) Associated nausea: Yes Pain consistency: now resolved Associated symtoms: Reports nausea; Denies chest pain, cough, fevers/chills or short of breath Review of Systems Const: Denies: fever(s) Card: Denies: chest pain Resp: Denies: dyspnea GI: Reports: abdominal pain, nausea and vomiting Skin/Breast: Denies: rash PFSH ED PFSH: Medical History Alcohol abuse Depression Hepatitis C infection Psychiatric care 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 Surgical History Hx of BKA Family History Mother Diabetes Cancer Social History Smoking and tobacco status: current every day smoker cigarettes Packs smoked per day: 0.5 Second hand smoke exposure: No Smoking risk assessment/counseling performed?: No Alcohol intake: former Desire information about alcohol rehabilitation?: No Counseling given: No Substance/Drug Use: current Desire information about substance/drug rehabilitation?: No Counseling given: No Adopted: No Caregiver/support person: No Lives independently: Yes Housing: House service: No Current occupational status: unemployed Pets and animals: No Do you think of yourself as: Straight/Heterosexual Current gender identity: Male Physical Exam Const: COMMON NORMALS: no acute distress GENERAL APPEARANCE: lethargic; not ill appearing NUTRITIONAL APPEARANCE: obese ORIENTATION/CONSCIOUSNESS: Yes lethargic and Yes Other orientation findings (somnolent) HENMT: COMMON NORMALS: normocephalic and Normal external nose present HEAD & SCALP: normocephalic FACE & SINUS: normal facial exam NOSE: Normal external nose present Eye: COMMON NORMALS: Equal, round and reactive pupils present and EOMs intact bilaterally PUPIL: Yes Equal, round and reactive pupils present Neck/C-Spine: GENERAL: Yes trachea midline Chest: CHEST: Yes Symmetrical chest wall rise Resp: COMMON NORMALS: normal respiratory effort, No retractions, No use of accessory muscles and clear to auscultation bilaterally AUSCULTATION: clear to auscultation bilaterally Cardio: COMMON NORMALS: regular rate and regular rhythm RATE: regular rate RHYTHM: regular rhythm GI: COMMON NORMALS: Normal to inspection, nondistended, normoactive bowel sounds present Extremity: COMMON NORMALS: no pedal edema Neuro: CHAMP COMA SCALE: document GCS findings Champ coma scale eye opening: Spontaneous [place] coma scale verbal response: Orientated [place] coma scale motor response: Obey commands Champ coma scale total score: 15 SENSORIUM/ORIENTATION: Yes lethargic SENSORY EXAM: Yes extremities (intact) Psych: COMMON NORMALS: speech normal SPEECH: Yes normal speech Skin: COMMON NORMALS: no rashes or lesions noted GENERAL SKIN EXAM: no rashes or lesions noted Course Vital Signs: Vital signs: Vital Signs Temperature 98.3 F 03/15/23 22:40 Pulse Rate 90 03/15/23 22:40 Respiratory Rate 18 03/15/23 22:40 Blood Pressure 149/91 03/15/23 22:40 Pulse Oximetry 97 03/15/23 22:40 Oxygen Delivery Me thod Room Air 03/15/23 22:40 MDM - Nausea/Vomiting/Diarrhea Medical Decision Making He is resting comfortably. White blood cell count is 12 without left shift. His CRP is normal. Liver enzymes are minimally elevated. Total bili is 0.5. Lipase is 18. He will be allowed to discharge. Lab Data 03/15/23 22:46 03/15/23 22:46 Laboratory Results WBC 12.2 10^3/uL (4.0-10.0) H 03/15/23 22:46 RBC 5.26 10^6/uL (4.1-5.3) 03/15/23 22:46 Hgb 17.2 g/dL (11.7-16.6) H 03/15/23 22:46 Hct 47.8 % (42.0-52.0) 03/15/23 22:46 MCV 90.9 fl (80-94) 03/15/23 22:46 MCH 32.7 pg (28.0-34.0) 03/15/23 22:46 MCHC 36.0 g/dL (30.0-36.0) 03/15/23 22:46 RDW 13.2 % (12.1-15.1) 03/15/23 22:46 Plt Count 184 10^3/cmm (130-400) 03/15/23 22:46 MPV 13.1 fL (7.4-10.4) H 03/15/23 22:46 Neut % (Auto) 52.5 % 03/15/23 22:46 Lymph % (Auto) 25.3 % 03/15/23 22:46 [place] % (Auto) 6.9 % 03/15/23 22:46 Eos % (Auto) 13.7 % 03/15/23 22:46 Baso % (Auto) 1.0 % 03/15/23 22:46 Neut # (Auto) 6.43 10^3/uL (1.8-7.7) 03/15/23 22:46 Lymph # (Auto) 3.1 10^3/uL (0.8-4.8) 03/15/23 22:46 [place] # (Auto) 0.8 10^3/uL (0.2-0.9) 03/15/23 22:46 Eos # (Auto) 1.7 10^3/uL (0.0-0.8) H 03/15/23 22:46 Baso # (Auto) 0.1 10^3/uL (0.0-0.1) 03/15/23 22:46 Nucleated RBC % (auto) 0 % 03/15/23 22:46 Nucleated RBCs # 0.0 /100WBC 03/15/23 22:46 Sodium 140 mmol/L (136-145) 03/15/23 22:46 Potassium 3.8 mmol/L (3.5-5.1) 03/15/23 22:46 Chloride 103 mmol/L (98-107) 03/15/23 22:46 Carbon Dioxide 25 mmol/L (22-29) 03/15/23 22:46 Anion Gap 15.8 (5-19) 03/15/23 22:46 BUN 10 mg/dL (6-20) 03/15/23 22:46 Creatinine 0.9 mg/dL (0.7-1.2) 03/15/23 22:46 GFR Calculation 90.8 mL/min (90-130) 03/15/23 22:46 Glucose 122 mg/dL (65-115) H 03/15/23 22:46 Calculated Osmolality 290 mOsm/kg (285-295) 03/15/23 22:46 Calcium 9.2 mg/dL (8.5-10.5) 03/15/23 22:46 Total Bilirubin 0.5 mg/dL (0.15-1.2) 03/15/23 22:46 AST 49 U/L (0-40) H 03/15/23 22:46 ALT 83 U/L (0-41) H 03/15/23 22:46 Alkaline Phosphatase 108 U/L (40-130) 03/15/23 22:46 C-Reactive Protein 3.0 mg/L (0.0-4.9) 03/15/23 22:46 Total Protein 7.9 g/dL (6.6-8.7) 03/15/23 22:46 Albumin 4.2 g/dL (3.5-5.2) 03/15/23 22:46 Globulin 3.7 g/dL (1.3-4.6) 03/15/23 22:46 Lipase 18 U/L (13-60) 03/15/23 22:46 Discharge Plan Discharge Patient Disposition: Home Clinical Impression: Vomiting, Drug-induced nausea and vomiting Condition: Stable Prescriptions: No Action glecaprevir-pibrentasvir 100-40 mg tablet 3 tab PO DAILY 56 Days Qty: 90 1RF Rx Instructions: must administer with a meal/food (DME) Right Lower Extremity Prosthesis See Rx Instructions .Route .MEDSUPPLY Qty: 1 0RF Rx Instructions: Please evaluate and treat for Right BKA and issue prosthesis. bupropion HCl 150 mg Tablet Extended Release 24 Hr 150 mg PO DAILY 30 Days Qty: 30 1RF diclofenac sodium 1 % Gel 1 applic topical TID PRN (Reason: Pain) 30 Days Qty: 100 1RF aripiprazole 15 mg tablet 15 mg PO DAILY 30 Days Qty: 30 1RF hydroxyzine pamoate 25 mg Capsule 50 mg PO Q6H PRN (Reason: Anxiety) 30 Days Qty: 120 1RF Vitamin B-1 (mononitrate) 100 mg Tablet 100 mg PO DAILY 30 Days Qty: 30 1RF Discharge Orders: Discharge ED (Routine); Ordered 03/16/23 Ordered By: Abraham Bennett Referrals: Timo Hicks, [Primary Care Provider] - 1-3 days Patient Instructions: Opioid Safety, Pain Management, Vomiting - Adult Activity Restrictions/Additional Instructions: Follow a liquid diet for the next 36 hours, then slowly add food as you tolerate. Return for problems. Coding Level of Care Code ED Manager Quality Improvement for Wendy Bang
== END 2023-03-16 00:12 | disposition home or self-care (01) ==
PROVIDERS: Emergency Provider Emergency Medicine; PCP Family Medicine
DX: R11.2 Nausea with vomiting, unspecified (principal)
CPT/HCPCS: 80053; 83690; 85025; 86140; 96361; 96374; 99284; J2405; J7030

== ENCOUNTER → 2023-04-15 17:46 | Outpatient (BNVA) | payer MEDICARE, MEDICAID, SELFPAY | PROVIDERS: PCP Family Medicine; Visit Provider Nurse Practitioner Family | DX: R05.9 Cough, unspecified (principal) | CPT/HCPCS: 87426 ==

== ENCOUNTER 2023-05-05 14:39 | Emergency (ER) | payer MEDICARE, MEDICAID, SELFPAY ==
[2023-05-05 14:42] VITALS: BP 133/87; PULSE 115; RESP 18; TEMP 36.7; O2SAT 94; BMI 38.0
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
--- NOTE | 2023-05-05 14:43 | CT_ITS ---
WS: [id number] CT HEAD NONCONTRAST HISTORY: trauma TECHNIQUE: Contiguous axial imaging performed through the brain in 2.5 mm imaging. Bone and soft tiss ue windows. Sagittal and coronal reformats reviewed. All CT scans at [facility] use at least one of these dose optimization techniques: automated exposure control; mA and/or kV adjustment per pa tient size (includes targeted exams where dose is matched to clinical indication); or iterative recon struction. DLP: 2206.78 mGy.cm COMPARISON: 11/04/2021 No acute intracranial hemorrhage, midline shift or mass effect. No atrophy or prior infarcts or herniation. No significant atrophy. There is very mild small vessel i schemic disease. Similar to the prior studies. Ventricles: Normal size with no hydrocephalus. Paranasal sinuses: As visualized are clear. Mastoid air cells: Well pneumatized. Calvarium and scalp: Skull is intact with no soft tissue edema or swelling. IMPRESSION: Negative head CT.
--- NOTE | 2023-05-05 14:54 | PC.PHAR ---
MEDICATIONS VERIFIED BY EXTERNAL MED LIST. PT UNABLE TO TALK TO US.
[2023-05-05 14:55] LABS: Basophils # 0.1 10^3/uL (0.0-0.1); Basophils % 0.6 %; Eosinophils # 0.3 10^3/uL (0.0-0.8); Eosinophils % 2.1 %; Hematocrit 49.9 % (42.0-52.0); Hemoglobin 17.4 g/dL (11.7-16.6); Lymphocytes # 2.7 10^3/uL (0.8-4.8); Lymphocytes % 18.7 %; Mean Corpuscular HGB Conc 34.9 g/dL (30.0-36.0); Mean Corpuscular Hemoglobin 30.7 pg (28.0-34.0); Mean Platelet Volume 12.9 fL (7.4-10.4); Monocytes # 0.7 10^3/uL (0.2-0.9); Monocytes % 4.7 %; Neutrophils # 10.53 10^3/uL (1.8-7.7); Neutrophils % 73.3 %; Nucleated Red Blood Cells % 0 %; Platelet Count 234 10^3/cmm (130-400); Red Blood Count 5.67 10^6/uL (4.1-5.3); Red Cell Distribution Width 12.2 % (12.1-15.1); White Blood Count 14.4 10^3/uL (4.0-10.0)
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
[2023-05-05 15:59] LABS: Alanine Aminotransferase 34 U/L (0-41); Albumin Level 4.3 g/dL (3.5-5.2); Alcohol Level 184 mg/dL (0-10); Alkaline Phosphatase 72 U/L (40-130); Anion Gap 16.4 (5-19); Aspartate Amino Transferase 27 U/L (0-40); Blood Urea Nitrogen 8 mg/dL (6-20); Calcium 8.8 mg/dL (8.5-10.5); Carbon Dioxide 24 mmol/L (22-29); Chloride 103 mmol/L (98-107); Globulin 3.9 g/dL (1.3-4.6); Glomerular Filtration Rate 90.8 mL/min (90-130); Glucose 114 mg/dL (65-115); Osmolality Calculated 287 mOsm/kg (285-295); Potassium 4.4 mmol/L (3.5-5.1); Sodium 139 mmol/L (136-145); Total Bilirubin 0.5 mg/dL (0.15-1.2); Total Protein 8.2 g/dL (6.6-8.7)
[2023-05-05 17:00] LABS: Add Urine Microscopic? NO; Urine Appearance Clear (CLEAR); Urine Color Dark Yellow (Yellow); pH Urine 5 (5-7)
[2023-05-05 17:01] LABS: Amphetamines Screen Urine Positive (Negative); Barbiturates Screen Urine Negative (Negative); Benzodiazepines Screen Urine Positive (Negative); Bilirubin Urine Neg (Negative); Blood Urine Neg (Negative); Charge for UA Resulting for Rev; Cocaine Screen Urine Negative (Negative); Glucose Urine UA Norm (Normal); Ketones Urine Negative (Negative); Leukocyte Esterase Urine Negative (Negative); Nitrate Urine Negative (Negative); Opiate Screen Urine Negative (Negative); PCP Screen Urine Negative (Negative); Protein Urine Neg (Negative); Specific Gravity, Urine 1.015 (1.005-1.030); THC Screen Urine Negative (Negative); Urobilinogen Urine 1 mg/dL (Negative)
== END 2023-05-05 16:52 | disposition home or self-care (01) ==
PROVIDERS: Emergency Provider Family Medicine; PCP Family Medicine
DX: F15.10 Other stimulant abuse, uncomplicated (principal); F10.129 Alcohol abuse with intoxication, unspecified; Y90.6 Blood alcohol level of 120-199 mg/100 ml; S80.212A Abrasion, left knee, initial encounter; Z89.511 Acquired absence of right leg below knee; F17.210 Nicotine dependence, cigarettes, uncomplicated; Z86.19 Personal history of other infectious and parasitic diseases; S50.311A Abrasion of right elbow, initial encounter; W19.XXXA Unspecified fall, initial encounter
CPT/HCPCS: 36415; 70450; 72125; 80053; 80306; 80307; 81003; 85025; 99285

== ENCOUNTER → 2023-05-08 15:30 | Outpatient (BNVA) | payer MEDICARE, MEDICAID, SELFPAY | PROVIDERS: PCP Family Medicine; Visit Provider Family Medicine | DX: B18.2 Chronic viral hepatitis C (principal) | CPT/HCPCS: 80053; 83540; 85025; 87522 ==

== ENCOUNTER → 2024-07-16 09:54 | Outpatient (BNVA) | payer MEDICARE, MEDICAID, SELFPAY | PROVIDERS: PCP Family Medicine; Visit Provider Family Medicine | DX: B18.2 Chronic viral hepatitis C (principal); E78.5 Hyperlipidemia, unspecified; B19.20 Unspecified viral hepatitis C without hepatic coma; R53.83 Other fatigue | CPT/HCPCS: 80053; 80061; 84439; 84443; 85025; 87522 ==